=== PATIENT | female | born 1970 | race Caucasian/White ===

== ENCOUNTER 2016-05-14 11:39 | Emergency (ER) | payer OTHER ==
[~2016-05-14 11:39] MED LIST: ABILIFY 10 MG10 MG PO; ABILIFY 15MG15 MG PO; ABILIFY10 M1 PO; ADVAIR DISKUS 21 DSK INH; ALBUTEROL 3 ML3 ML INH; ALBUTEROL SULFAT3 M1 INH; BENADRYL ALLERG25 M1 PO; CARISOPRODOL350 MG PO; CHLORASEPTI1 LOZ/PAC PO; CLONAZEPAM1 M2 PO; CLOZAPINE100 MG PO; CLOZAPINE25 MG PO; CLOZAPINE50 MG PO; CLOZARIL PO; CLOZARIL100 M1 PO; COMMIT PO; CRESTOR10 M1 PO; CYCLOBENZAPRINE5 M1 PO; DEPAKOTE ER 25250 MG PO; DEPAKOTE ER500 M1 PO; DIVALPROEX SOD500 MG PO; ESCITALOPRAM10 MG PO; ESCITALOPRAM5 MG PO; ESTRADIOL TOP; ESTRADIOL0.0375 MG1; FLEXERIL 5MG TAB5 MG PO; FLONASE120 SPRAY/ NASB; FLOVENT HF0.22 MG/Ac INH; FLUTICASON0.05 MG/A2 NAS; HABITROL21 MG/24 H TOP; IBUPROFEN800 M1 PO; IBUPROFEN800 MG PO; IMODIUM 2 MG. CA2 MG PO; KLONOPIN 1MG TAB1 MG PO; KLONOPIN0.5 MG PO; LASIX20 M1 PO; LEVAQUIN500 M1 PO; LEXAPRO 10MG10 MG PO; LEXAPRO 20MG M20 MG PO; MOBIC7.5 MG PO; MOXIFLOXACIN H400 M1 PO; MUCINEX D ER T1 EACH PO; NICOTINE T14 MG/24 H EXT; OLANZAPINE20 MG PO; OXYCOD/APAP TAB 10- PO; OXYCODONE-ACET1 EACH PO; Oxygen INH; PERCOCET 325 MG1 TAB PO; PREDNICOT20 MG PO; PREDNISONE10 MG PO; PREDNISONE20 M1 PO; PROAIR HFA8.5 GM INH; PROTONIX 40MG T40 MG PO; PROTONIX20 M1 PO; VESICARE5 M1 PO; VIBRAMYCIN100 MG PO; VITAMIN B-121000 MC3 PO; ZITHROMAX Z-PA250 M1 PO; ZITHROMAX250 M2 PO; ZITHROMAX500 MG PO; [UNRECOGNIZED DRUG - OTHER] TOP
--- NOTE | 2016-05-14 12:03 | ED DYSPNEA/ASTHMA COMPLAINT ---
History of Present Illness General Chief Complaint: General Adult Stated Complaint: SENT BY AMANDA FOR EVAL OF FEVER,CONGESTION Source: patient, old records Exam Limitations: no limitations Vital Signs & Intake/Output Vital Signs & Intake/Output Vital Signs Date Time Temp Pulse Resp B/P Pulse O2 O2 Flow FiO2 Ox Delivery Rate 05/14 1226 98 Nasal 2.0L Cannula 05/14 1203 95 Nasal 2.0L Cannula 05/14 1146 98.4 110 22 174/95 93 Nasal 2.0L Cannula Allergies Coded Allergies: amoxicillin (From Augmentin) (Intermediate, SICK - VOMITING 02/03/16) clavulanic acid (From Augmentin) (Intermediate, SICK - VOMITING 02/03/16) lithium (Intermediate, SICK - NAUSEA, DIARRHEA, VOMITING 02/03/16) Sulfa (Sulfonamide Antibiotics) (BAD RASH ALL OVER BODY 02/03/16) erythromycin base (R/O ERYTHROMYCIN (PER DR. Thomas KULKARNI MD) 02/03/16) haloperidol (From Haldol) (PER PT GETS OUT OF IT, DOESNT MOVE 02/03/16) morphine (PER PT DIDNT LIKE THE WAY IT MADE HER FEEL 02/03/16) Reconcile Medications Albuterol Sulfate (Proair Hfa) 0.09 MG/Actuation MICHELL 1-2 PUF INH AD PRN COPD (Reported) Albuterol Sulfate 3 ML NEB 1 AMP INH BID PRN SOB (Reported) Aripiprazole (Abilify) 20 MG TABLET 1 TAB PO QAM MENTAL HEALTH (Reported) Aspirin (Ecotrin*) 325 MG TABLET.DR 1 TAB PO DAILY HEART HEALTH (Reported) Azithromycin (Zithromax) 250 MG TABLET 1 DP PO AD bronchitis 2 the first day followed by 1 for days 2-5 Clonazepam 1 MG TABLET 1 TAB PO DAILY PTSD (Reported) Clonazepam 0.5 MG TABLET 1 TAB PO QPM PTSD (Reported) Clozapine (Clozaril) 100 MG TABLET 1 TAB PO QPM MENTAL HEALTH (Reported) Clozapine (Clozaril) 25 MG TABLET 1 TAB PO QPM MENTAL HEALTH (Reported) Cyanocobalamin (Vitamin B-12) 1,000 MCG TAB 1 TAB PO DAILY SUPPLEMENT ( Reported) Divalproex Sodium (Depakote ER) [address] 1,000 MG PO QAM MENTAL HEALTH ( Reported) Divalproex Sodium (Depakote ER) [address] 1,500 MG PO QPM MENTAL HEALTH ( Reported) Escitalopram Oxalate 20 MG TABLET 1 TAB PO DAILY MENTAL HEALTH (Reported) Fluticasone Propionate (Flonase) 120 SPRAY/BOT SPR 2 SPRAY NASB DAILY CONGESTION (Reported) FLUTICASONE/SALMETEROL (Advair 250-50 Diskus) 1 DSK DSK 1 PUFF INH BID COPD ( Reported) Furosemide (Lasix) 20 MG TABLET 1 TAB PO BID EDEMA (Reported) Ibuprofen 800 MG TABLET 1 TAB PO DAILY PAIN (Reported) Methylprednisolone. (Medrol) 4 MG TAB.DS.PK 1 DP PO AD bronchtis 6 on day 1 then reduce by one tablet daily until gone Mometasone Furoate (Nasonex) 50 MCG SPRAY.PUMP 2 SPRAY NASB DAILY rhinitis Oxycodone HCl/Acetaminophen (Oxycodone-Acetaminophen 5-325) 5 MG-325 MG TABLET 1 TAB PO BIDP PRN PAIN (Reported) Pantoprazole Sodium (Protonix) 20 MG TABLET.DR 1 TAB PO BID GI (Reported) Rosuvastatin Calcium (Crestor) 10 MG TABLET 1 TAB PO DAILY HPL (Reported) Solifenacin Succinate (Vesicare) 5 MG TABLET 1 TAB PO DAILY INCONTINENCE ( Reported) Triage Note: PT STATES THAT THAT SHE HAS COPD AND THAT SHE HAS HAD A COUGH INTERMITTANT X 4-5 DAYS, BROWN SPUTUM, HEAD CONGESTION AND FEVERS AT HOME. PT IS O2 DEPENDENT 2L VIA NC AND SATURATION 93 % . CALLED MD AND WAS TOLD TO COME TO ER Triage Nurses Notes Reviewed? yes Onset: Abrupt Duration: day(s): (5), constant Timing: recent history Severity: moderate Prior Episodes/Possible Cause: frequent episodes Associated Symptoms: cough HPI: 46-year-old female with history of cOPD on 2L home oxygen , obstructive sleep apnea on home BiPAP, GERD, irritable bowel syndrome, bipolar disorder, chronic back pain, sciatica, chronic pain disorder, depression, PTSD presents emergency room complaining of a five-day history of intermittent cough productive of brown sputum associated with sinus congestion pressure rhinorrhea and subjective fevers at home. She has not sought care for the symptoms until today. She is not currently on any antibiotics or prednisone. She does not smoke. She has not had to increase her oxygen at home and denies dyspnea with exertion however she states after coughing this morning she checked her oxygen saturation which read in the low 70s for which she called her model set artist Dr. mccoy whos office advised her to come to the ER. There is no chest pain no abdominal pain no nausea vomiting or diarrhea (CORTNEY WALL) Past History Travel History Traveled to [place] past 21 day No Medical History Any Pertinent Medical History? see below for history Neurological: NONE EENT: allergies Cardiovascular: NONE Respiratory: asthma, bronchitis, COPD, obstructive sleep apnea Gastrointestinal: GERD, irritable bowel syndrome Hepatic: NONE Renal: NONE Musculoskeletal: chronic back pain, falls, sciatica Psychiatric: anxiety, bipolar disease, chronic pain disorder, depression, schizo affective disorder, PTSD Endocrine: obesity Blood Disorders: NONE Cancer(s): NONE DISTRICT CAPTAIN/Reproductive: NOCTURNAL INCONTINENCE History of MRSA: No History of VRE: No History of CDIFF: No Surgical History Surgical History: laminectomy Psychosocial History Who do you live with Patient/Self Services at Home Home Health Aide, Nursing What is your primary language Persian Tobacco Use: Quit >30 days ago ETOH Use: denies use Illicit Drug Use: denies illicit drug use Family History Family History, If Any: Relation not specified for: *No pertinent family history Hx Contributory? No (CORTNEY WALL) Review of Systems Review of Systems Constitutional: Reports: see HPI. All Other Systems: Reviewed and Negative Comments Review of systems: See HPI, All other systems negative. Constitutional, no chills no fever, no malaise HEENT: No visual changes sore throat congestion, no ear pain Cardiovascular: No chest pain , no palpitation , no orthopnea no ankle swelling Skin, no jaundice no rashes, no change in skin Respiratory: dyspnea cough no sputum no hemoptysis GI: No nausea no vomiting, no diarrhea, : No dysuria Muscle skeletal: No joint pain, no back pain, no neck pain, Neurologic: No numbness nno headache Psych: No stress Heme/endocrine: No bruising no bleeding Immunology: No lymphadenopathy (CORTNEY WALL) Physical Exam Physical Exam General Appearance: well developed/nourished, alert, awake Respiratory: normal breath sounds Comments: Well-developed well-nourished patient in no apparent distress. Head/Face: Atraumatic, no maxillary/frontal sinus tenderness, no facial swelling Eyes: PERRL, EOMI, no conjunctival injection. No nystagmus Ear:External auditory canal and Tympanic membranes clear, no erythema, no FB. Nose: atraumatic.Normal inspection Throat: Moist mucous membranes.Pharynx normal. No pharyngeal erythema/exudate seen. No stridor/drooling or assymetry. No swelling or edema. Neck: Supple, FROM Back: FROM, Nontender Cardiovascular: Regular rate and rhythms no murmurs rubs or gallops, Respiratory: Chest nontender.There were no bony deformities, no asymmetry. No respiratory distress. Patient speaking in full complete sentences. Breath sounds clear to auscultation bilaterally: NO W/R/R Extremities: full range of motion Neuro: Alert and oriented x3 Skin: Warm & dry;No appreciable rash on exposed skin Psych: Mood affect normal, normal memory normal judgment. Core Measures ACS in differential dx? No Severe Sepsis Present: No Septic Shock Present: No (SHERLYN TEE,CORTNEY) Progress Differential Diagnosis: asthma, AMI, bronchitis, costochondritis, CHF, COPD, pericarditis, pulmonary embolism, pneumonia, pneumothorax, unstable angina Diagnostic Imaging: Viewed by Me: Radiology Read. Discussed w/RAD: Radiology Read. Radiology Impression: PATIENT: SAVANAH FSOTER PRESENT AGE: 46 PATIENT ACCOUNT NO: [id number] : 68 LOCATION: [facility] ORDERING PHYSICIAN: CORTNEY TEE SERVICE DATE: 05/14/16 EXAM TYPE: RAD - XRY- CHEST XRAY, PA AND LATERAL XR CHEST CLINICAL INFORMATION: Dyspnea COMPARISON: Chest x-ray 04/08/2016. TECHNIQUE: PA and lateral views of the chest were obtained. FINDINGS: Symmetric lung inflation. No focal consolidation, pleural effusion, or pneumothorax. Cardiac silhouette size is normal. There are no acute osseous findings. IMPRESSION: Low lung volumes. The lungs remain clear. DICTATED BY: ASUNCION BAIG MD DATE/TIME DICTATED:05/14/161330 INDUSTRIAL SAFETY AND HEALTH TECHNICIAN: TALIA DATE/TIME TRANSCRIBED:05/14/161330 CONFIDENTIAL, DO NOT COPY WITHOUT APPROPRIATE AUTHORIZATION. <Electronically signed in Other Vendor System> SIGNED BY: ASUNCION BAIG MD 05/14/16 1336 Initial ED EKG: none (CORTNEY WALL) Plan of Care: Orders Procedure Date/time Status Saline Lock 05/14 1211 Active COMPREHENSIVE METABOLIC PANEL 05/14 1211 Complete CBC WITHOUT DIFFERENTIAL 05/14 1211 Complete Laboratory Tests 05/14/16 1219: Anion Gap 14, Estimated GFR > 60, BUN/Creatinine Ratio 28.3 H, Glucose 101 H, Calcium 9.6, Total Bilirubin 0.4, AST 21, ALT 36, Alkaline Phosphatase 76, Total Protein 7.3, Albumin 4.3, Globulin 3.0, Albumin/Globulin Ratio 1.4, CBC w Diff NO MAN DIFF REQ, RBC 3.88 L, MCV 93.7, MCH 31.9 H, RDW 12.4, MPV 8.1, Gran % 60.6, Lymphocytes % 25.5, Monocytes % 12.2 H, Eosinophils % 1.5, Basophils % 0.2, Absolute Granulocytes 3.8, Absolute Lymphocytes 1.6, Absolute Monocytes 0.8 H, Absolute Eosinophils 0.1, Absolute Basophils 0, PUBS MCHC 34.0 labs ordered, ptmedicated with solumedrol 125mg iv, duoneb ordered. pt speakig in full sentences at this time On repeat evaluation patient reports improvement in her symptoms and breathing treatment currently 93- 97% on 2 L resting 05/14/2016 1:53:59 PM. Case was discussed with Dr. Waters agrees with plan patient is able to or around ER oxygen saturation 95% and denies any symptoms. . Discussed with her at length all of her lab results and x-ray findings she feels comfortable plan she is scheduled to see her model set artist in 2 days she will return anytime sooner if any concerns answered all of her questions (SHERLYN TEE,CORTNEY) Departure Departure Time of Disposition: 1353 Disposition: HOME OR SELF CARE Condition: Stable Clinical Impression Primary Impression: URI (upper respiratory infection) Referrals: ILIANA MARTINES,CHAUNCEY Roy (PCP/Family) Additional Instructions: Follow-up with your model set artist on Saturday as scheduled. Medrol Dosepak, Nasonex in Z-Fuad as directed return anytime sooner with any concerns. these prescriptions were sent [facility]. Departure Forms: Customer Survey General Discharge Information Prescriptions: Current Visit Scripts Methylprednisolone. (Medrol) 1 DP PO AD #1 DP 6 on day 1 then reduce by one tablet daily until gone Mometasone Furoate (Nasonex) 2 SPRAY NASB DAILY #1 INHAL Azithromycin (Zithromax) 1 DP PO AD #6 TAB 2 the first day followed by 1 for days 2-5 (CORTNEY WALL) PA/HEALTH SAFETY MANAGER Co-Sign Statement Statement: ED Attending supervision documentation- [] I saw and evaluated the patient. I have also reviewed all the pertinent lab results and diagnostic results. I agree with the findings and the plan of care as documented in the PA's/HEALTH SAFETY MANAGER's documentation. [X] I have reviewed the ED Record and agree with the PA's/HEALTH SAFETY MANAGER's documentation. [] Additions or exceptions (if any) to the PAs/HEALTH SAFETY MANAGER's note and plan are summarized below: [] (SEAMUS MARTINES,ASUNCION Fuentes) Critical Care Note Critical Care Note Critical Care Time: non-applicable (CORTNEY WALL)
[2016-05-14 12:47] LABS: ABSOLUTE BASOPHIL COUNT 0 /CUMM (0.0-0.2); ABSOLUTE EOSINOPHIL COUNT 0.1 /CUMM (0.0-0.7); ABSOLUTE GRANULOCYTE CT 3.8 /CUMM (1.4-6.5); ABSOLUTE LYMPH COUNT 1.6 /CUMM (1.2-3.4); ABSOLUTE MONOCYTE COUNT 0.8 /CUMM (0.10-0.60); BASOPHIL % 0.2 % (0.0-2.0); EOSINOPHIL % 1.5 % (0-5); GRANULOCYTE % 60.6 % (42.2-75.2); HEMATOCRIT 36.3 % (37-47); MEAN CORPUSCULAR HGB 31.9 PG (27.0-31.0); MEAN CORPUSCULAR VOLUME 93.7 FL (81.0-99.0); MEAN PLATELET VOLUME 8.1 FL (7.4-10.4); PLATELET COUNT 227 /CUMM (130-400); RBC DISTRIBUTION WIDTH 12.4 % (11.5-14.5); RED BLOOD CELL CT 3.88 /CUMM (4.20-5.40); WHITE BLOOD CELL COUNT 6.3 /CUMM (4.8-10.8)
[2016-05-14] MEDS ORDERED: CLONAZEPAM0.5 M2 PO (12:49)
[2016-05-14] MEDS ORDERED: CLOZARIL25 MG PO (12:51)
[2016-05-14] MEDS ORDERED: ESCITALOPRAM OX20 MG PO (12:52)
[2016-05-14] MEDS ORDERED: ASPIRIN EC325 M2 PO (12:55)
--- NOTE | 2016-05-14 13:36 | RADIOLOGY REPORT ---
XR CHEST CLINICAL INFORMATION: Dyspnea COMPARISON: Chest x-ray 04/08/2016. TECHNIQUE: PA and lateral views of the chest were obtained. FINDINGS: Symmetric lung inflation. No focal consolidation, pleural effusion, or pneumothorax. Cardiac silhouette size is normal. There are no acute osseous findings. IMPRESSION: Low lung volumes. The lungs remain clear.
[2016-05-14] MEDS ORDERED: MEDROL4 M2 PO (13:55)
[2016-05-14] MEDS ORDERED: ZITHROMAX250 M2 PO (13:55)
[2016-05-14] MEDS ORDERED: NASONEX17 GM NASB (13:55)
[2016-05-14 14:01] VITALS: BP 158/84
== END 2016-05-14 14:03 ==
LOC: ERH 11:39
PROVIDERS: Physician Assistant Medical
DX: J06.9 Acute upper respiratory infection, unspecified (principal); Z87.891 Personal history of nicotine dependence
CPT/HCPCS: 1263; 96374; J2930

== ENCOUNTER 2016-07-25 11:18 | Emergency (ER) | payer OTHER ==
[~2016-07-25 11:18] MED LIST changes: +ASPIRIN EC325 M2 PO; +CLONAZEPAM0.5 M2 PO; +CLOZARIL25 MG PO; +ESCITALOPRAM OX20 MG PO; +MEDROL4 M2 PO; +NASONEX17 GM NASB
--- NOTE | 2016-07-25 11:24 | ED GENERAL ADULT ---
History of Present Illness General Chief Complaint: General Adult Stated Complaint: ANXIETY/SOB Source: patient, old records, EMS Exam Limitations: no limitations Vital Signs & Intake/Output Vital Signs & Intake/Output Vital Signs Date Time Temp Pulse Resp B/P Pulse O2 O2 Flow FiO2 Ox Delivery Rate 07/25 1437 94 07/25 1412 97.8 93 18 111/56 97 Room Air 07/25 1253 87 Room Air 07/25 1253 97.9 98 22 95 Nasal 2.0L Cannula 07/25 1138 94 Nasal 2.0L Cannula 07/25 1122 98.4 100 20 144/70 96 Nasal 2.0L Cannula 07/25 1120 24 87 Room Air Allergies Coded Allergies: amoxicillin (From Augmentin) (Intermediate, SICK - VOMITING 02/03/16) clavulanic acid (From Augmentin) (Intermediate, SICK - VOMITING 02/03/16) lithium (Intermediate, SICK - NAUSEA, DIARRHEA, VOMITING 02/03/16) Sulfa (Sulfonamide Antibiotics) (BAD RASH ALL OVER BODY 02/03/16) erythromycin base (R/O ERYTHROMYCIN (PER DR. Thomas KULKARNI MD) 02/03/16) haloperidol (From Haldol) (PER PT GETS OUT OF IT, DOESNT MOVE 02/03/16) morphine (PER PT DIDNT LIKE THE WAY IT MADE HER FEEL 02/03/16) Reconcile Medications Albuterol Sulfate (Proair Hfa) 90 MCG HFA.AER.AD 2 PUF INH Q4-6 PRN PRN COPD (Reported) Aripiprazole (Abilify) 20 MG TABLET 1 TAB PO QAM MENTAL HEALTH (Reported) Benzonatate (Tessalon Perle) 100 MG CAPSULE 1 CAP PO TID PRN cough Clonazepam 1 MG TABLET 1 TAB PO DAILY PTSD (Reported) Clonazepam 0.5 MG TABLET 1 TAB PO QPM PTSD (Reported) Clozapine (Clozaril) 100 MG TABLET 1 TAB PO QPM MENTAL HEALTH (Reported) Clozapine (Clozaril) 25 MG TABLET 1 TAB PO QPM MENTAL HEALTH (Reported) Cyanocobalamin (Vitamin B-12) 1,000 MCG TABLET 1 TAB PO DAILY SUPPLEMENT ( Reported) Divalproex Sodium (Depakote ER) 500 MG TAB.ER.24H 2 TAB PO DAILY MENTAL HEALTH (Reported) Divalproex Sodium (Depakote ER) 500 MG TAB.ER.24H 3 TAB PO QPM MENTAL HEALTH (Reported) Doxycycline Hyclate 100 MG CAPSULE 1 CAP PO BID bronchitis Escitalopram Oxalate 20 MG TABLET 1 TAB PO DAILY MENTAL HEALTH (Reported) Fluticasone/Salmeterol (Advair 250-50 Diskus) 250 MCG-50 MCG/DOSE BLST.W.DEV 1 PUF INH BID BREATHING PROBLEMS (Reported) Furosemide (Lasix) 20 MG TABLET 1 TAB PO BID EDEMA (Reported) Ibuprofen 800 MG TABLET 1 TAB PO DAILY PAIN (Reported) Oxycodone HCl/Acetaminophen (Oxycodone-Acetaminophen 5-325) 5 MG-325 MG TABLET 1 TAB PO BIDP PRN PAIN (Reported) Pantoprazole Sodium (Protonix) 20 MG TABLET.DR 1 TAB PO BID GI (Reported) Prednisone 20 MG TABLET 2 TAB PO DAILY bronchitis Rosuvastatin Calcium (Crestor) 10 MG TABLET 1 TAB PO DAILY HPL (Reported) Solifenacin Succinate (Vesicare) 5 MG TABLET 1 TAB PO DAILY BLADDER HEALTH ( Reported) Triage Nurses Notes Reviewed? yes Onset: Gradual Duration: week(s): (2), worse persistent since Timing: remote history Injury Environment: home Severity: moderate Severity Numbers: 7 Associated Symptoms: cough HPI: Patient is a 46-year-old female with history of COPD, sleep apnea presenting to the emergency department complaining of increasing shortness of breath 1 day. She reports a productive cough of green and brown phlegm that's been going on for the past 2 weeks. Positive chills without fevers. She wears oxygen at nighttime with her CPAP. Denies using it during the day. Denies any chest pain or palpitations. Remote history of smoking quit one year ago and then started up 2 weeks ago. Since then all the symptoms have been occurring. Denies any palpitations. Denies any increasing lower extremity edema. She does take Lasix daily for edema. Denies recent travel. No recent surgeries. (IBETH SNIDER) Past History Travel History Traveled to [place] past 21 day No Medical History Any Pertinent Medical History? see below for history Neurological: NONE EENT: allergies Cardiovascular: NONE Respiratory: asthma, bronchitis, COPD, obstructive sleep apnea Gastrointestinal: GERD, irritable bowel syndrome Hepatic: NONE Renal: NONE Musculoskeletal: chronic back pain, falls, sciatica Psychiatric: anxiety, bipolar disease, chronic pain disorder, depression, schizo affective disorder, PTSD Endocrine: obesity Blood Disorders: NONE Cancer(s): NONE BALL RACKER/Reproductive: NOCTURNAL INCONTINENCE History of MRSA: No History of VRE: No History of CDIFF: No Surgical History Surgical History: laminectomy Psychosocial History Who do you live with Patient/Self Services at Home Home Health Aide, Nursing What is your primary language Turkish Family History Family History, If Any: Relation not specified for: *No pertinent family history Hx Contributory? No (IBETH SNIDER) Review of Systems Review of Systems Constitutional: Reports: chills. Comments Review of systems: See HPI, All other systems negative. Constitutional, no fever or weight loss HEENT: No visual changes Cardiovascular: No chest pain ,palpitation , orthopnea or ankle swelling Skin, no jaundice no rashes Respiratory: No hemoptysis GI: No nausea no vomiting : No dysuria No hematuria Muscle skeletal: no back pain, no neck pain, Neurologic: No numbness no confusion NO RODRÍGUEZ Psych: No stress anxiety or depression,. Heme/endocrine: No bruising no bleeding no polyuria or polydipsia Immunology: No splenectomy or history of AIDS (IBETH SNIDER) Physical Exam Physical Exam General Appearance: alert, awake, mild distress, obese Comments: Well-developed well-nourished person in no acute distress HEENT: Pupils equally round and reactive to light and accommodation. Nose is atraumatic. External auditory canal and Tympanic membranes clear. Pharynx normal. No swelling or edema. Neck: Supple, no lymphadenopathy, normal range of motion without pain or tenderness Back: Nontender Cardiovascular: Regular rate and rhythms no murmurs rubs or gallops, normal JVP Respiratory: Chest nontender. No respiratory distress. Slight end expiratory wheeze appreciated throughout all lung perez. No rhonchi or crackles. Abdomen: Soft, nontender nondistended, no appreciable organomegaly. Normal bowel sounds. No ascites Extremity: No edema, no calf tenderness to palpation, pedal pulses normal and equal pulses. Neuro: Alert oriented x3 Skin: No appreciable rash on exposed skin, skin is warm and dry. Psych: Mood and affect is normal, memory and judgment is normal. Core Measures ACS in differential dx? No CVA/TIA Diagnosis: No Severe Sepsis Present: No Septic Shock Present: No (IBETH SNIDER) Progress Differential Diagnoses I considered the following diagnoses in my evaluation of the patient: Pneumonia , bronchitis, COPD exacerbation, pulmonary embolus, upper respiratory infection, sinusitis Plan of Care: Orders Procedure Date/time Status Heart Healthy Diet 07/25 L Active Add-on Test (ER Only) 07/25 1257 Active TROPONIN LEVEL 07/25 1150 Complete HUMAN BETA HCG SCREEN 07/25 1150 Complete LACTIC ACID 07/25 1141 Complete COMPREHENSIVE METABOLIC PANEL 07/25 1141 Complete CBC WITHOUT DIFFERENTIAL 07/25 1141 Complete Telemetry/Home Economics Teacher 07/25 1125 Active EKG 07/25 1125 Active Laboratory Tests 07/25/16 1441: Lactic Acid Cancelled 07/25/16 1150: Anion Gap 10, Estimated GFR > 60, BUN/Creatinine Ratio 28.8 H, Glucose 117 H, Lactic Acid 0.8, Calcium 10.0, Total Bilirubin 0.4, AST 25, ALT 44, Alkaline Phosphatase 67, Troponin I < 0.01, Total Protein 6.9, Albumin 4.1, Globulin 2.8, Albumin/Globulin Ratio 1.5, Total Beta HCG NEGATIVE, CBC w Diff NO MAN DIFF REQ, RBC 4.16 L, MCV 93.5, MCH 31.4 H, RDW 14.0, MPV 8.0, Gran % 63.5, Lymphocytes % 25.2, Monocytes % 9.9 H, Eosinophils % 1.0, Basophils % 0.4, Absolute Granulocytes 3.9, Absolute Lymphocytes 1.5, Absolute Monocytes 0.6, Absolute Eosinophils 0.1, Absolute Basophils 0, PUBS MCHC 33.6 07/25/16 1144: Troponin I Cancelled Diagnostic Imaging: Viewed by Me: Radiology Read. Discussed w/RAD: Radiology Read. CXR Impression: PATIENT: SAVANAH FOSTER PRESENT AGE: 46 PATIENT ACCOUNT NO: [id number] : 66 LOCATION: [facility] ORDERING PHYSICIAN: IBETH TEE SERVICE DATE: 07/25/16-1124 EXAM TYPE: RAD - XRY-CHEST XRAY, PA AND LATERAL EXAMINATION: XR CHEST CLINICAL INFORMATION: Cough and hypoxia COMPARISON: Multiple chest x-rays most recent prior dated 05/14/2016 TECHNIQUE: 2 views of the chest were obtained. FINDINGS: Stable cardiomediastinal silhouette. Lungs are clear. Bony thorax is intact. IMPRESSION : No acute pulmonary disease. DICTATED BY: MARY MONTESINOS MD DATE/TIME DICTATED: 07/25/161424 DIMENSION QUARRY SUPERVISOR:TALIA DATE/TIME TRANSCRIBED:07/25/161424 CONFIDENTIAL, DO NOT COPY WITHOUT APPROPRIATE AUTHORIZATION. <Electronically signed in Other Vendor System> SIGNED BY: MARY MONTESINOS MD 07/25/16 1430 Initial ED EKG: NSR Prior EKG: unchanged Comments: On arrival patient given DuoNeb treatment and dose of prednisone. Patient nontoxic in no distress. Oxygen saturation is around 94%. There is expiratory wheezing on exam. Patient has history of COPD. X-ray negative for acute pneumonia. Patient will be treated for COPD exacerbation with Z-Fuad, prednisone. She will continue inhalers as directed. Patient also given Tessalon pearls for cough. 07/25/2016 2:41:05 PM patient informed of lab work results and x-ray results. No signs of pneumonia. Likely COPD exacerbation and bronchitis. Patient will be treated with antibiotics. Patient put on doxycycline secondary to potential to T prolongation with azithromycin and another antipsychotic medications. He should also given a couple days of steroids and Tessalon Perles. She will continue inhaler treatment. Patient nontoxic. Ambulatory O2 sat ranges from 91 -93% on room air. Likely baseline for this patient as she has history of COPD and sleep apnea. She has oxygen at home as well. She'll follow-up with her flight coordinator this week. (IBETH SNIDER) Departure Departure Time of Disposition: 9 Disposition: HOME OR SELF CARE Condition: Stable Clinical Impression Primary Impression: COPD exacerbation Secondary Impressions: Bronchitis Referrals: ILIANA MARTINES,CHAUNCEY Roy (PCP/Family) Additional Instructions: Follow-up with your primary care physician call to make an appointment. Take antibiotics as prescribed. Take off medication as prescribed. Continue using inhalers as directed at home. Take steroids as prescribed as well. Start tomorrow you were given a dose of steroids here today. Departure Forms: Customer Survey General Discharge Information Prescriptions: Current Visit Scripts Doxycycline Hyclate 1 CAP PO BID #14 CAP Benzonatate (Tessalon Perle) 1 CAP PO TID PRN cough #30 CAP Prednisone 2 TAB PO DAILY #8 TAB (IBEHT SNIDER) PA/PROP CUTTER Co-Sign Statement Statement: ED Attending supervision documentation- [] I saw and evaluated the patient. I have also reviewed all the pertinent lab results and diagnostic results. I agree with the findings and the plan of care as documented in the PA's/PROP CUTTER's documentation. x I have reviewed the ED Record and agree with the PA's/PROP CUTTER's documentation. [] Additions or exceptions (if any) to the PAs/PROP CUTTER's note and plan are summarized below: [] (CHANELLE MARTINES,YAIR) Critical Care Note Critical Care Note Critical Care Time: non-applicable (ALICIA TEE,IBETH)
[2016-07-25 11:59] LABS: ABSOLUTE BASOPHIL COUNT 0 /CUMM (0.0-0.2); ABSOLUTE EOSINOPHIL COUNT 0.1 /CUMM (0.0-0.7); ABSOLUTE GRANULOCYTE CT 3.9 /CUMM (1.4-6.5); ABSOLUTE LYMPH COUNT 1.5 /CUMM (1.2-3.4); ABSOLUTE MONOCYTE COUNT 0.6 /CUMM (0.10-0.60); BASOPHIL % 0.4 % (0.0-2.0); GRANULOCYTE % 63.5 % (42.2-75.2); HEMATOCRIT 38.9 % (37-47); MEAN CORPUSCULAR HGB 31.4 PG (27.0-31.0); MEAN CORPUSCULAR HGB CONC 33.6 G/DL (33.0-37.0); MEAN CORPUSCULAR VOLUME 93.5 FL (81.0-99.0); PLATELET COUNT 215 /CUMM (130-400); RED BLOOD CELL CT 4.16 /CUMM (4.20-5.40); WHITE BLOOD CELL COUNT 6.2 /CUMM (4.8-10.8)
[2016-07-25 14:12] VITALS: BP 111/56
[2016-07-25] MEDS ORDERED: ADVAIR 250-501 EACH INH (14:19)
[2016-07-25] MEDS ORDERED: DOXYCYCLINE HY100 M2 PO (14:27)
[2016-07-25] MEDS ORDERED: PREDNISONE20 M1 PO (14:27)
[2016-07-25] MEDS ORDERED: TESSALON PERLE100 M1 PO (14:27)
--- NOTE | 2016-07-25 14:30 | RADIOLOGY REPORT ---
EXAMINATION: XR CHEST CLINICAL INFORMATION: Cough and hypoxia COMPARISON: Multiple chest x-rays most recent prior dated 05/14/2016 TECHNIQUE: 2 views of the chest were obtained. FINDINGS: Stable cardiomediastinal silhouette. Lungs are clear. Bony thorax is intact. IMPRESSION: No acute pulmonary disease.
== END 2016-07-25 15:08 ==
LOC: ERH 11:18
PROVIDERS: Physician Assistant
DX: J44.1 Chronic obstructive pulmonary disease with (acute) exacerbation (principal); R68.83 Chills (without fever); Z87.891 Personal history of nicotine dependence
CPT/HCPCS: 1263; 93005; 93010

== ENCOUNTER 2016-09-02 21:04 | Inpatient (IN) | payer OTHER ==
[~2016-09-02] VITALS: Ht 162.6 cm; Wt 127.0 kg
[~2016-09-02 21:04] MED LIST changes: +ADVAIR 250-501 EACH INH; +DOXYCYCLINE HY100 M2 PO; +TESSALON PERLE100 M1 PO
--- NOTE | 2016-09-02 21:06 | ED DYSPNEA/ASTHMA COMPLAINT ---
History of Present Illness General Chief Complaint: Dyspnea (COPD, CHF, Other) Stated Complaint: BIBA, SOB Source: patient Exam Limitations: no limitations Vital Signs & Intake/Output Vital Signs & Intake/Output Vital Signs Date Time Temp Pulse Resp B/P B/P Pulse O2 O2 Flow FiO2 Mean Ox Delivery Rate 09/03 0123 94 Nasal 2.0L Cannula 09/03 0115 98.1 87 20 154/94 94 09/03 0044 97.6 82 18 141/64 95 Nasal 3.0L Cannula 09/02 2305 97.6 87 22 148/72 93 Room Air 09/02 2143 99 Nasal 2.0L Cannula 09/02 2105 97.9 106 21 157/77 94 Room Air ED Intake and Output 09/03 0000 09/02 1200 Intake Total 0 Output Total Balance 0 Intake, Oral 0 Patient 220 lb Weight Weight Estimated Measurement Method Allergies Coded Allergies: amoxicillin (From Augmentin) (Intermediate, SICK - VOMITING 02/03/16) clavulanic acid (From Augmentin) (Intermediate, SICK - VOMITING 02/03/16) lithium (Intermediate, SICK - NAUSEA, DIARRHEA, VOMITING 02/03/16) Sulfa (Sulfonamide Antibiotics) (BAD RASH ALL OVER BODY 02/03/16) erythromycin base (R/O ERYTHROMYCIN (PER DR. Thomas KULKARNI MD) 02/03/16) haloperidol (From Haldol) (PER PT GETS OUT OF IT, DOESNT MOVE 02/03/16) morphine (PER PT DIDNT LIKE THE WAY IT MADE HER FEEL 02/03/16) Reconcile Medications Albuterol Sulfate (Proair Hfa) 90 MCG HFA.AER.AD 2 PUF INH Q4-6 PRN PRN COPD (Reported) Aripiprazole (Abilify) 20 MG TABLET 1 TAB PO QAM MENTAL HEALTH (Reported) Benzonatate (Tessalon Perle) 100 MG CAPSULE 1 CAP PO TID PRN cough Clonazepam 1 MG TABLET 1 TAB PO DAILY PTSD (Reported) Clonazepam 0.5 MG TABLET 1 TAB PO QPM PTSD (Reported) Clozapine (Clozaril) 100 MG TABLET 1 TAB PO QPM MENTAL HEALTH (Reported) Clozapine (Clozaril) 25 MG TABLET 1 TAB PO QPM MENTAL HEALTH (Reported) Cyanocobalamin (Vitamin B-12) 1,000 MCG TABLET 1 TAB PO DAILY SUPPLEMENT ( Reported) Divalproex Sodium (Depakote ER) 500 MG TAB.ER.24H 2 TAB PO DAILY MENTAL HEALTH (Reported) Divalproex Sodium (Depakote ER) 500 MG TAB.ER.24H 3 TAB PO QPM MENTAL HEALTH (Reported) Doxycycline Hyclate 100 MG CAPSULE 1 CAP PO BID bronchitis Escitalopram Oxalate 20 MG TABLET 1 TAB PO DAILY MENTAL HEALTH (Reported) Escitalopram Oxalate (Lexapro) 5 MG TABLET 1 TAB PO DAILY ANXIETY (Reported) Fluticasone/Salmeterol (Advair 250-50 Diskus) 250 MCG-50 MCG/DOSE BLST.W.DEV 1 PUF INH BID BREATHING PROBLEMS (Reported) Furosemide (Lasix) 20 MG TABLET 1 TAB PO BID EDEMA (Reported) Ibuprofen 800 MG TABLET 1 TAB PO DAILY PAIN (Reported) Oxycodone HCl/Acetaminophen (Oxycodone-Acetaminophen 5-325) 5 MG-325 MG TABLET 1 TAB PO BIDP PRN PAIN (Reported) Pantoprazole Sodium (Protonix) 20 MG TABLET.DR 1 TAB PO BID GI (Reported) Prednisone 20 MG TABLET 2 TAB PO DAILY bronchitis Rosuvastatin Calcium (Crestor) 10 MG TABLET 1 TAB PO DAILY HPL (Reported) Solifenacin Succinate (Vesicare) 5 MG TABLET 1 TAB PO DAILY BLADDER HEALTH ( Reported) Triage Nurses Notes Reviewed? yes Onset: Gradual Duration: day(s): Timing: recent history Severity: moderate Activities at Onset: none Prior Episodes/Possible Cause: occasional episodes Modifying Factors: Improves With: rest. Associated Symptoms: cough, wheezing HPI: 46 yo woman h/o emphysema, presents with 2-3 days of cough, wheezing, increased shortness of breath. She recently was given home 02 to take intermittently, and noted that she required increased amounts today, because her 02 sat had dropped to 84%. She denies fever, chills, chest pain, nausea, vomiting, diarrhea. She is otherwise well. Past History Travel History Traveled to [place] past 21 day No Medical History Any Pertinent Medical History? 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 No Review of Systems Review of Systems Constitutional: Reports: no symptoms. EENTM: Reports: no symptoms. Respiratory: Reports: no symptoms. Cardiovascular: Reports: no symptoms. GI: Reports: no symptoms. Genitourinary: Reports: no symptoms. Musculoskeletal: Reports: no symptoms. Skin: Reports: no symptoms. Neurological/Psychological: Reports: no symptoms. Hematologic/Endocrine: Reports: no symptoms. Immunologic/Allergic: Reports: no symptoms. All Other Systems: Reviewed and Negative Physical Exam Physical Exam General Appearance: well developed/nourished, mild distress Head: atraumatic, normal appearance Eyes: Bilateral: normal appearance. Ears, Nose, Throat: normal pharynx, normal ENT inspection Neck: normal inspection, supple, full range of motion Respiratory: chest non-tender, wheezing Cardiovascular: regular rate/rhythm Gastrointestinal: normal bowel sounds, soft, non-tender, no organomegaly Extremities: normal inspection, normal capillary refill, normal range of motion Neurologic/Psych: no motor/sensory deficits, awake, alert, oriented x 3 Skin: intact, normal color, warm/dry Core Measures ACS in differential dx? No Severe Sepsis Present: No Septic Shock Present: No Progress Differential Diagnosis: asthma, AMI, bronchitis, CHF, COPD, pneumonia Plan of Care: Orders Procedure Date/time Status Regular Diet 09/03 B Active CBC WITHOUT DIFFERENTIAL 09/03 06 Active BASIC ELECTROLYTES PLUS BUN&CR 09/03 06 Active TRC EVALUATION (GEN) 09/03 0242 Active Pathway - chart 09/03 0242 Active House Staff 09/03 0242 Active Vital Signs 09/04 103 Active Teach/Educate 09/04 103 Active Pain Treatment and Response 09/04 103 Active Nutritional Intake, Monitor 09/04 103 Active Isolation 09/04 103 Active Intake & Output 09/04 103 Active Patient Care Conference 09/04 103 Active Activity/Ambulation 09/04 103 Active Patient Data 09/02 2334 Active Saline Lock 09/02 2325 Active Misc Message 09/02 2324 Active ED Holding Orders 09/02 2324 Active Admit to inpatient 09/02 2324 Active Vital Signs 09/02 2324 Active Code Status 09/02 2324 Active HUMAN BETA HCG SCREEN 09/03 2123 Complete Intake & Output 09/02 2113 Active TROPONIN LEVEL 09/02 2110 Complete CBC WITHOUT DIFFERENTIAL 09/02 2110 Complete BASIC METABOLIC PANEL 09/02 2110 Complete EKG 09/02 2108 Active Current Medications Sig/Sandeep Start time Last Medication Dose Stop Time Status Admin Clonazepam 0.5 MG QPM 09/03 2199 UNVr (KlonoPIN) 09/10 2158 Clozapine 100 MG QPM 09/03 2199 UNVr (Clozaril 100MG Tab) Clozapine 25 MG QPM 09/03 2199 UNVr (Clozaril 100MG Tab) Divalproex Sodium 1,500 MG QPM 09/03 220 UNVr (Depakote ER) Atorvastatin Calcium 40 MG 1700 09/03 1700 UNVr (Lipitor) Aripiprazole 20 MG DAILY 09/03 1000 UNVr (Abilify) Budesonide/ 2 PUF BID 09/03 1000 UNVr Formoterol Fumarate (Symbicort) Clonazepam 1 MG DAILY 09/03 1000 UNVr (Klonopin 1MG Tab) 09/10 0959 Cyanocobalamin 1,000 MCG DAILY 09/03 1000 UNVr (Vitamin B12) Divalproex Sodium 1,000 MG DAILY 09/03 1000 UNVr (Depakote ER) Doxycycline Hyclate 100 MG BID 09/03 1000 AC (Vibramycin) Enoxaparin Sodium 40 MG DAILY 09/03 1000 UNVr (Lovenox) Escitalopram Oxalate 20 MG DAILY 09/03 1000 UNVr (Lexapro) Escitalopram Oxalate 5 MG DAILY 09/03 1000 UNVr (Lexapro) Furosemide 20 MG BID 09/03 1000 UNVr (Lasix) Oxybutynin Chloride 5 MG BID 09/03 1000 UNVr (Ditropan) Prednisone 50 MG DAILY 09/03 1000 AC 09/07 1001 Omeprazole 40 MG DAILY AC 09/03 0700 UNVr (Prilosec) Benzonatate 100 MG TID PRN 09/03 0300 AC (Tessalon Capsule) Oxycodone/ 1 TAB Q4P PRN 09/03 0300 UNVr Acetaminophen (Percocet) Acetaminophen 650 MG Q6P PRN 09/03 0245 AC (Tylenol) Ibuprofen 400 MG Q6P PRN 09/03 0245 AC (Motrin) Laboratory Tests 09/02/162129: Total Beta HCG NEGATIVE 09/02/162129: Anion Gap 12, Estimated GFR 59 L, BUN/Creatinine Ratio 21.0, Glucose 111 H, Calcium 9.3, Troponin I < 0.01, CBC w Diff NO MAN DIFF REQ, RBC 4.15 L, MCV 94.3, MCH 31.5 H, RDW 14.3, MPV 8.2, Gran % 56.7, Lymphocytes % 32.9, Monocytes % 7.9, Eosinophils % 1.4, Basophils % 1.1, Absolute Granulocytes 4.9, Absolute Lymphocytes 2.9, Absolute Monocytes 0.7 H, Absolute Eosinophils 0.1, Absolute Basophils 0.1, PUBS MCHC 33.5 Diagnostic Imaging: Viewed by Me: Radiology Read. Discussed w/RAD: Radiology Read. CXR Impression: no acute abnormality, no infiltrates, normal size heart, normal mediastinum Initial ED EKG: normal axis, normal intervals, normal p-waves, normal QRS complex, normal sinus rhythm Comments: PATIENT: SAVANAH FOSTER PRESENT AGE: 46 PATIENT ACCOUNT NO: [id number] : 66 LOCATION: [facility] ORDERING PHYSICIAN: HALLIE PRITCHARD MD SERVICE DATE: 09/02/16 EXAM TYPE: RAD - XRY-PORTABLE CHEST XRAY EXAMINATION: XR PORTABLE CHEST CLINICAL INFORMATION: Dyspnea. COMPARISON: Chest x-ray 07/25/2016 TECHNIQUE: Portable portable frontal view of the chest was obtained. 10:26 PM FINDINGS: No significant abnormality is noted involving the heart, lungs, mediastinum, bony thorax or soft tissues. IMPRESSION: Unremarkable examination. 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 <Electronically signed in Other Vendor System> SIGNED BY: VENKATESH RAYMOND MD 09/02/162240 Departure Departure Disposition: STILL A PATIENT Condition: Stable Clinical Impression Primary Impression: COPD exacerbation Referrals: ILIANA MARTINES,CHAUNCEY Roy (PCP/Family) Departure Forms: Customer Survey General Discharge Information Admission Note Spoke With: SHANNAN HONG MD Documentation of Exam: Documentation of any treatments & extenuating circumstances including Concerns Regarding Discharge (functional status, medication knowledge or non-compliance, living conditions, etc.) that warrant an admission rather than observation: pt with recurrent hypoxia to 88% on room air, at home and in the ED... corrects to 94% on 2-3 l nasal cannula... pt merits 02 support, iv abx, iv steroids, consider pulm consult. Critical Care Note Critical Care Note Critical Care Time: non-applicable
--- NOTE | 2016-09-02 21:13 | NUR ---
PT TYRESE FROM HOME. PER PT, SHE STARTED EXPERIENCING SOB A WEEK AGO AND WAS GIVEN PORTABLE O2 BY HER PCP WITH INSTRUCTIONS TO WEAR THE O2 EVERYWHERE SHE GOES. PT STATES SHE WAS WALKING AROUND HER APARTMENT TODAY WITHOUT THE O2 AND BECAME SOB. PT KARRI O2 SAT WAS 84% AT HOME. UPON ED ARRIVAL PT O2 SAT 94% ON RA. WHEEZING NOTED. DR PRITCHARD IN TO EVAL PT.
--- NOTE | 2016-09-02 21:18 | NUR ---
RESP CALLED FOR TREATMENT.
--- NOTE | 2016-09-02 21:20 | NUR ---
PORTABLE XRAY AT BEDSIDE.
[2016-09-02 21:37] LABS: ABSOLUTE BASOPHIL COUNT 0.1 /CUMM (0.0-0.2); ABSOLUTE EOSINOPHIL COUNT 0.1 /CUMM (0.0-0.7); ABSOLUTE GRANULOCYTE CT 4.9 /CUMM (1.4-6.5); ABSOLUTE LYMPH COUNT 2.9 /CUMM (1.2-3.4); ABSOLUTE MONOCYTE COUNT 0.7 /CUMM (0.10-0.60); BASOPHIL % 1.1 % (0.0-2.0); EOSINOPHIL % 1.4 % (0-5); GRANULOCYTE % 56.7 % (42.2-75.2); HEMATOCRIT 39.2 % (37-47); MEAN CORPUSCULAR HGB 31.5 PG (27.0-31.0); MEAN CORPUSCULAR HGB CONC 33.5 G/DL (33.0-37.0); MEAN CORPUSCULAR VOLUME 94.3 FL (81.0-99.0); MEAN PLATELET VOLUME 8.2 FL (7.4-10.4); PLATELET COUNT 230 /CUMM (130-400); RBC DISTRIBUTION WIDTH 14.3 % (11.5-14.5); RED BLOOD CELL CT 4.15 /CUMM (4.20-5.40); WHITE BLOOD CELL COUNT 8.7 /CUMM (4.8-10.8)
--- NOTE | 2016-09-02 21:38 | NUR ---
PT MEDICATED WITH 125MG SOLU MEDROL IV. RESP AT BEDSIDE FOR TREATMENT.
--- NOTE | 2016-09-02 22:08 | NUR ---
PT ON 2L NC WITH O2 SAT 94%.
--- NOTE | 2016-09-02 22:41 | RADIOLOGY REPORT ---
EXAMINATION: XR PORTABLE CHEST CLINICAL INFORMATION: Dyspnea. COMPARISON: Chest x-ray 07/25/2016 TECHNIQUE: Portable portable frontal view of the chest was obtained. 10:26 PM FINDINGS: No significant abnormality is noted involving the heart, lungs, mediastinum, bony thorax or soft tissues. IMPRESSION: Unremarkable examination.
--- NOTE | 2016-09-02 23:12 | NUR ---
PT RESTING COMFORTABLY ON STRETCHER. PT ON 3L O2 NC AT 96%.
--- NOTE | 2016-09-02 23:13 | NUR ---
DR PRITCHARD IN TO REEVAL PT.
[2016-09-02] MEDS ORDERED: LEXAPRO20 M1 PO (23:37)
--- NOTE | 2016-09-03 00:15 | NUR ---
Emergency Dept UC Admit Note: To be admitted to [facility] by DR. HONG with COPD EXACERBATION as the diagnosis, to 2NB #[id number] location. 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
--- NOTE | 2016-09-03 00:16 | NUR ---
HOUSESTAFF AT BEDSIDE FOR EVAL.
--- NOTE | 2016-09-03 00:39 | NUR ---
REPORT GIVEN TO MARBIN MACDONALD ON [facility]. RECEIVING RN CHECKING TO SEE IF THERE IS AN AVAILABLE TECH TO HELP WITH TRANSPORT.
[2016-09-03 01:15] VITALS: BP 154/94
--- NOTE | 2016-09-03 01:30 | NUR ---
NURSING NOTE: PT ARRIVED TO FLOOR VIA STRETCHER FROM ED. PT A&OX3, VSS, AFEBRILE, DENIES CP. PT ON 2L NC SATS 94%, PT STATES SHE GETS EXERTIONAL SOB ON AMBULATION, IST @ BEDSIDE AND PT SHOWN HOW TO USE, PT STATES SHE IS ON 2L CPAP W/02 @ HOME. SKIN INTACT, NO BREAKDOWN NOTED. AWAIT FURTHER ORDERS FROM MD, PT SHOWN HOW TO USE CALL LIGHT SYSTEM, WILL CONTINUE TO MONITOR.
--- NOTE | 2016-09-03 01:46 | History & Physical ---
ALEXUS CHENG 09/03/16 0145: General Information and HPI MD Statement: I have seen and personally examined SAVANAH FOSTER and documented this H&P. The patient is a 46 year old F who presented with a patient stated chief complaint of worsening shortness of breath and low oxygen saturation. Source of Information: patient, old records Exam Limitations: no limitations History of Present Illness: This is a 46-year-old female with past medical history significant for COPD on 2 L oxygen at home, asthma, allergies, history of bronchitis, obstructive sleep apnea on CPAP, hyperlipidemia, GERD, bilateral lower extremity edema on Lasix, chronic back pain, laminectomy, sciatica, history of falls, anxiety, bipolar disorder, depression, shizoffective disorder, PTSD, chronic pain syndrome, obesity, nocturnal urinary incontinence, chronic smoker presented to emergency department with chief complaint of worsening shortness of breath at rest and low oxygen saturations 84% on room air. Patient reports that she has seen Dr. Palomares last week and underwent ambulatory oxygen saturations which were low and she was restarted on home oxygen 2 L. Previously she used to be on home oxygen for couple of years but she stopped using oxygen 1 month ago. However she was started on oxygen again one week ago. She reports worsening shortness of breath both at rest and on exertion for couple of days. Also reported cough associated with brown colored phlegm production. She denied any fever, chills. Shortness of breath is associated with chest tightness. Also reported heartburn. Denies any chest pain. She denied any sick contacts, travel history. She is a current smoker 1 pack per day, denies alcohol intake, denies illicit drug abuse. Off note patient tried quitting in the past however she started smoking again. Patient reports visiting her friend this morning and all of a sudden she felt dizzy(not on oxygen as she forgot to carry portable oxygen tank). At that point of time her oxygen saturations were at 84% on room air which provoked her to come to the emergency room. She denies any loss of consciousness. Patient also reported long-standing history of irritable bowel syndrome and she has alternating constipation and diarrhea. Also reported 5 x 10 headache. Denied any nausea, vomiting, abdominal pain, weakness or sensory changes, tingling or numbness sensation, vision or gait changes. Also reports hot flashes from menopause. After patient was discharged from [facility] in June 2015 after she was treated for altered mental status and acute on chronic respiratory failure, aspiration pneumonia. She was recently seen in our ER and treated with short course of steroids and doxycycline Allergies/Medications Allergies: Coded Allergies: amoxicillin (From Augmentin) (Intermediate, SICK - VOMITING 02/03/16) clavulanic acid (From Augmentin) (Intermediate, SICK - VOMITING 02/03/16) lithium (Intermediate, SICK - NAUSEA, DIARRHEA, VOMITING 02/03/16) Sulfa (Sulfonamide Antibiotics) (BAD RASH ALL OVER BODY 02/03/16) erythromycin base (R/O ERYTHROMYCIN (PER DR. Thomas KULKARNI MD) 02/03/16) haloperidol (From Haldol) (PER PT GETS OUT OF IT, DOESNT MOVE 02/03/16) morphine (PER PT DIDNT LIKE THE WAY IT MADE HER FEEL 02/03/16) Home Med list Albuterol Sulfate (Proair Hfa) 90 MCG HFA.AER.AD 2 PUF INH Q4-6 PRN PRN COPD (Reported) Aripiprazole (Abilify) 20 MG TABLET 1 TAB PO QAM MENTAL HEALTH (Reported) Benzonatate (Tessalon Perle) 100 MG CAPSULE 1 CAP PO TID PRN cough Clonazepam 1 MG TABLET 1 TAB PO DAILY PTSD (Reported) Clonazepam 0.5 MG TABLET 1 TAB PO QPM PTSD (Reported) Clozapine (Clozaril) 100 MG TABLET 1 TAB PO QPM MENTAL HEALTH (Reported) Clozapine (Clozaril) 25 MG TABLET 1 TAB PO QPM MENTAL HEALTH (Reported) Cyanocobalamin (Vitamin B-12) 1,000 MCG TABLET 1 TAB PO DAILY SUPPLEMENT ( Reported) Divalproex Sodium (Depakote ER) 500 MG TAB.ER.24H 2 TAB PO DAILY MENTAL HEALTH (Reported) Divalproex Sodium (Depakote ER) 500 MG TAB.ER.24H 3 TAB PO QPM MENTAL HEALTH (Reported) Doxycycline Hyclate 100 MG CAPSULE 1 CAP PO BID bronchitis Escitalopram Oxalate 20 MG TABLET 1 TAB PO DAILY MENTAL HEALTH (Reported) Escitalopram Oxalate (Lexapro) 5 MG TABLET 1 TAB PO DAILY ANXIETY (Reported) Fluticasone/Salmeterol (Advair 250-50 Diskus) 250 MCG-50 MCG/DOSE BLST.W.DEV 1 PUF INH BID BREATHING PROBLEMS (Reported) Furosemide (Lasix) 20 MG TABLET 1 TAB PO BID EDEMA (Reported) Ibuprofen 800 MG TABLET 1 TAB PO DAILY PAIN (Reported) Oxycodone HCl/Acetaminophen (Oxycodone-Acetaminophen 5-325) 5 MG-325 MG TABLET 1 TAB PO BIDP PRN PAIN (Reported) Pantoprazole Sodium (Protonix) 20 MG TABLET.DR 1 TAB PO BID GI (Reported) Prednisone 20 MG TABLET 2 TAB PO DAILY bronchitis Rosuvastatin Calcium (Crestor) 10 MG TABLET 1 TAB PO DAILY HPL (Reported) Solifenacin Succinate (Vesicare) 5 MG TABLET 1 TAB PO DAILY BLADDER HEALTH ( Reported) Compliance With Home Meds: GOOD Past History Travel History Traveled to [place] past 21 day No Medical History Blood Transfusion Hx: No Neurological: NONE EENT: allergies Cardiovascular: NONE Respiratory: asthma, bronchitis, COPD, obstructive sleep apnea Gastrointestinal: GERD, irritable bowel syndrome Hepatic: NONE Renal: NONE Musculoskeletal: chronic back pain, falls, sciatica Psychiatric: anxiety, bipolar disease, chronic pain disorder, depression, schizo affective disorder, PTSD Endocrine: obesity Blood Disorders: NONE Cancer(s): NONE UNIVERSITY RELATIONS DIRECTOR/Reproductive: NOCTURNAL INCONTINENCE History of MRSA: No History of VRE: No History of CDIFF: No Isolation History: Standard Influenza Vaccine: 05/06/16 Surgical History Surgical History: laminectomy Past Family/Social History Family History Relations & Conditions if any Relation not specified for: *No pertinent family history Psychosocial History Services at Home: Home Health Aide, Nursing Primary Language: Greek Smoking Status: Current Everyday Smoker ETOH Use: denies use Illicit Drug Use: denies illicit drug use Functional Ability ADLs Independent: dressing, eating, toileting, bathing. Ambulation: cane IADLs Independent: shopping, housework, finances, food prep, telephone, transportation , medication admin. Review of Systems Review of Systems Constitutional: Denies: chills, diaphoresis, fever, malaise, weakness, unexplained weight loss. EENTM: Denies: see HPI. Cardiovascular: Reports: peripheral edema. Denies: chest pain, edema, orthopena, palpitations, syncope. Respiratory: Reports: cough, short of breath, sputum production. Denies: hemoptysis, orthopnea, stridor, wheezing. GI: Reports: constipation, diarrhea, distention. Denies: bloating, melena, nausea, vomiting. Genitourinary: Denies: discharge, dysuria, frequency. Musculoskeletal: Reports: back pain. Denies: joint pain, joint swelling. Skin: Denies: see HPI. Neurological/Psychological: Reports: anxiety, depressed, emotional problems, headache. Denies: confusion, dementia, numbness, tingling, tremors. Exam & Diagnostic Data Last 24 Hrs of Vital Signs/I&O Vital Signs Date Time Temp Pulse Resp B/P B/P Pulse O2 O2 Flow FiO2 Mean Ox Delivery Rate 09/03 0325 95 Nasal 2.0L Cannula 09/03 0123 94 Nasal 2.0L Cannula 09/03 0115 98.1 87 20 154/94 94 09/03 0044 97.6 82 18 141/64 95 Nasal 3.0L Cannula 09/02 2305 97.6 87 22 148/72 93 Room Air 09/02 2143 99 Nasal 2.0L Cannula 09/02 2106 97.9 106 21 157/77 94 Room Air Intake & Output 09/03 0800 09/03 0000 09/02 1600 Intake Total 0 Output Total Balance 0 Intake, Oral 0 Patient 127.006 kg 99.79 kg Weight Weight Reported by Patient Estimated Measurement Method Physical Exam General Appearance Alert, Oriented X3, Cooperative, No Acute Distress Skin No Rashes, No Breakdown HEENT Atraumatic, PERRLA, EOMI, Mucous Membr. moist/pink Neck Supple, No JVD Lymphatic Cervical nl Cardiovascular Normal S1, Normal S2, No Murmurs Lungs decreased breath sounds, wheezes Abdomen Normal Bowel Sounds, Soft, No Tenderness Neurological Strength at 5/5 X4 Ext, Normal Tone, Sensation Intact, Cranial Nerves 3-12 NL Extremities No Clubbing, No Cyanosis, +2 pitting edema b/l Vascular Normal Pulses, Pulses Symmetrical Last 24 Hrs of Labs/Gianluca: Laboratory Tests 09/02/162129: Total Beta HCG NEGATIVE 09/02/162129: Anion Gap 12, Estimated GFR 59 L, BUN/Creatinine Ratio 21.0, Glucose 111 H, Calcium 9.3, Troponin I < 0.01, CBC w Diff NO MAN DIFF REQ, RBC 4.15 L, MCV 94.3, MCH 31.5 H, RDW 14.3, MPV 8.2, Gran % 56.7, Lymphocytes % 32.9, Monocytes % 7.9, Eosinophils % 1.4, Basophils % 1.1, Absolute Granulocytes 4.9, Absolute Lymphocytes 2.9, Absolute Monocytes 0.7 H, Absolute Eosinophils 0.1, Absolute Basophils 0.1, PUBS MCHC 33.5 Assessment/Plan Assessment: This is a 46-year-old female with past medical history significant for COPD on 2 L oxygen at home, asthma, allergies, history of bronchitis, obstructive sleep apnea on CPAP, hyperlipidemia, GERD, bilateral lower extremity edema on Lasix, chronic back pain, laminectomy, sciatica, history of falls, anxiety, bipolar disorder, depression, shizoffective disorder, PTSD, chronic pain syndrome, obesity, nocturnal urinary incontinence, chronic smoker presented to emergency department with chief complaint of worsening shortness of breath at rest and low oxygen saturations 84% on room air. Vitals on admission-afebrile, heart rate 106, respiratory rate 21, blood pressure 150/70, saturating at 94% on 2 L. Pertinent labs on admission- WBC normal, hemoglobin 13, platelets 230, BEP normal Chest x-ray was normal. Problem list 1. Acute exacerbation of COPD 2. Chronic respiratory failure 3. Hyperlipidemia 4. GERD 5. Bilateral lower extremity edema 6. Obstructive sleep apnea on CPAP 7. Anxiety 8. Depression 9. Bipolar 10. Shizoaffective disorder 11. Nocturnal incontinence Acute exacerbation of COPD/chronic resp failure Significant history of COPD, current every day smoker, cough, worsening shortness of breath, sputum production most possibly COPD exacerbation. Her clinical manifestations-cough, sputum production, worsening dyspnea on exertion, decreased breath sounds, wheezes-suggestive of acute exacerbation of COPD. chest x-ray was clear with no acute pulmonary process, no pneumonia. * We'll admit to general med floor * Check her vitals every shift * Supplemental oxygen * Keep oxygen saturation above 92% * Will start prednisone 50 mg for 5 days * TRC and nebulizer treatment * Bronchodilators and beta agonists * We will start her on antibiotic doxycycline 100 mg twice a day for 7 days. Of note patient is allergic to erythromycin. * Smoking cessation counseled * Will call Dr. palomares in the morning for pulmonology consult. * Will follow blood culture and sputum cultures * Will check ambulatory oxygen saturations Obstructive sleep apnea She is on CPAP at home Will continue nocturnal CPAP for DEEPAK Hyperlipidemia Continue statins GERD Continue home dose of pantoprazole 20 mg daily Bilateral lower extremity edema continue home dose of Lasix 20 mg twice a day Anxiety Continue home dose of clonazepam Depression Continue home dose of Lexapro Continue Abilify We will place psychiatric consult for depression and anxiety However patient denies any suicidal or homicidal ideations Bipolar disorder Continue home dose of Depakote Shizoeffective disorder Continue home dose of clozapine Chronic pain/HEADACHE Tylenol for mild pain oxycodone for moderate pain Morphine for severe pain full code DVT prophylaxis subcutaneous Lovenox Regular diet Pain pathway As Ranked By This Provider Problem List: 1. Depression 2. Smoker 3. COPD (chronic obstructive pulmonary disease) 4. DEEPAK treated with BiPAP 5. COPD exacerbation Core Measures/Miscellaneous Acute Coronary Syndrome ACS Diagnosis: No Cerebrovascular Accident CVA/TIA Diagnosis: No Congestive Heart Failure CHF Diagnosis: No Venous Thromboembolism VTE Risk Factors: Age > 40, Obesity No [facility] VTE prophylaxis d/t: No contraindications No VTE Pharm Prophylaxis d/t: No contraindications VTE Diagnosis: No VTE Type: NONE VTE Confirmed by (Test): NONE Severe Sepsis Severe Sepsis Present: No Septic Shock Septic Shock Present: No Miscellaneous Documentation Attending Case Discussed With: SHANNAN HONG MD Primary Care Physician: CHAUNCEY BARRIENTOS MD Patient sees these Specialists patrol deputy sheriff Level of Patient Care: General Medicine SHANNAN HONG 09/03/16 0314: Attending MD Review Statement Attending Statement Attending MD Statement: examined this patient, discuss w/resident/PA/SUPERVISOR [employer]SEM[employer] RO[employer], agreed w/resident/PA/SUPER[employer] RO[employer], reviewed EMR data (avail), reviewed images, amended to note Attending Assessment/Plan: CC: Low oxygen saturation at home PMH: COPD/asthma, DEEPAK on CPAP, seasonal allergy, chronic back pain, bipolar/ anxiety, IBS Patient called EMS to come to ER because her oxygen saturation was 84% at home without oxygen. "I thought I was going to , I was in hospital before for being unresponsive". She complains of worsening cough shortness of breath with one episode of sputum production since last few days, associated with dizzy spells, and fatigue but no fever, chills, chest pain, chest tightness, loss of consciousness. She is also going through menopausal symptoms and getting hot flashes. Because of this illness patient went to see her patrol deputy sheriff Dr. Palomares, and underwent ambulatory O2 sats, which were low and she was restarted on home oxygen. She used to be on home oxygen before for more than one and half years but recently stopped using it. Even after his suggestion patient was not using oxygen at home. She was recently in ER on 07/25 and treated with short course of steroids and doxycycline. Vitals: Afebrile, pulse, RRR, blood pressure unremarkable. Saturating 94% on 2 L nasal cannula. On exam: A O 3, cooperative, no acute distress, neck supple, JVD normal, no lymphadenopathy, mucosa moist, no oral thrush no focal neurological deficit, +2 dependent edema, no obvious skin rashes or inflammation CVS: S1-S2, RRR. RS: Mild wheezes throughout the lung perez. Abdomen: Soft, obese, NT, ND, bowel sounds present. Labs: WBC 8.7, hemoglobin 13.1, hematocrit 39.2, platelet 2:30, neutrophils 56%, bicarbonate 31, BUN 21, creatinine 1.0, glucose 110, troponin less than 0.01 CXR: Unremarkable A and P Patient has chronic obstructive and restrictive disease secondary to COPD and obesity, along with obstructive sleep apnea, was suggested to use home oxygen at 2 L but patient has been noncompliant. along with that I suspect anxiety or panic episodes after looking at her low oxygen saturation. Patient clinically stable. Tearful and anxious. # Chronic respiratory failure secondary to COPD # COPD exacerbation # Anxiety /depression/bipolar disorder # Chronic back pain # DEEPAK - Admit to general medicine - Continue TRC nebs with albuterol and ipratropium scheduled and when necessary for shortness of breath - Short dose of prednisone 50 mg for 5 days -Doxycycline 100 mg by mouth twice a day for 7 days - Ambulatory O2 sats, probably patient will require home O2 - Night time CPAP - Psychiatry consult for anxiety, ? Panic attack - Informed Dr. Palomares patient being in hospital patient known to him. - Continue all her home medications - Adequate pain control, DVT prophylaxis
--- NOTE | 2016-09-03 03:15 | Admission Certification ---
Admission Certification Certification Statement - As attending physician, I certify that at the time of - admission, based on clinical presentation, severity of - symptoms, need for further diagnostic testing and - therapeutic interventions, and risk of adverse outcomes - without in-hospital treatment, in my clinical assessment, - this patient requires an acute hospital stay for a minimum - of two nights or longer. I have also considered psychsocial - factors such as support system, advanced age, financial - issues, cognitive issues, and failed out-patient treatments, - past re-admission history, safety of patient, and lack of - compliance as applicable. Specific rationale supporting this admission is: COPD exacerbation, chronic respiratory failure
[2016-09-03 06:47] VITALS: BP 147/74
[2016-09-03 08:22] LABS: ABSOLUTE BASOPHIL COUNT 0 /CUMM (0.0-0.2); ABSOLUTE EOSINOPHIL COUNT 0 /CUMM (0.0-0.7); ABSOLUTE GRANULOCYTE CT 7.4 /CUMM (1.4-6.5); ABSOLUTE LYMPH COUNT 1.3 /CUMM (1.2-3.4); ABSOLUTE MONOCYTE COUNT 0.1 /CUMM (0.10-0.60); BASOPHIL % 0.2 % (0.0-2.0); EOSINOPHIL % 0.1 % (0-5); HEMATOCRIT 40.2 % (37-47); MEAN CORPUSCULAR HGB 31.5 PG (27.0-31.0); MEAN CORPUSCULAR HGB CONC 33.4 G/DL (33.0-37.0); MEAN CORPUSCULAR VOLUME 94.2 FL (81.0-99.0); MEAN PLATELET VOLUME 9.3 FL (7.4-10.4); PLATELET COUNT 233 /CUMM (130-400); RBC DISTRIBUTION WIDTH 14.2 % (11.5-14.5); RED BLOOD CELL CT 4.27 /CUMM (4.20-5.40); WHITE BLOOD CELL COUNT 8.7 /CUMM (4.8-10.8)
--- NOTE | 2016-09-03 09:38 | Cons- Pulmonary ---
General Information and HPI Consulting Request Date of Consult: 09/03/16 Requested By: Dr. Guerrero Reason for Consult: dyspnea, chf, deepak/ohs Source of Information: patient Exam Limitations: no limitations History of Present Illness: 46F known to me from office, seen last week. On O2 - can be as low as 70's without oxygen. Exertion as needed and nocturnal. On CPAP therapy for DEEPAK Compliance - August 2016 Usage Days - 100% >4 hours - 100% AHI - 1.2 PAP - CPAP 14 cmH20 Good compliance and control. No signficant leaks. Spirometry performed 08/28/2016 On Lasix. Follows with Dr. Trinidad. Advair 250/50 BID with rinsing of the mouth. Nebulizer therapy at home. 04/14/15 CT chest. Stable GGO in LONA from 10/2013. Stable probable scarring or chronic subsegmental atelectasis in the RML and lingula from 10/2013. The remainder of the areas of increased attenuation and consolidation seen on 12/2013 have resolved. PFT performed February 2015 mild obstructive lung disease with significant bronchodilator response. DLCO is normal. Lung volumes are slightly reduced. This is consistent with a mixed defect restrictive and obstructive. Has not used o2 on exertion as recommended and continues to smoke. Afebrile, hemodynamically stable, saturating as well as in the office. Appears to be at baseline. CXR unremarkable, afebrile, no leukocytosis. Allergies/Medications Allergies: Coded Allergies: amoxicillin (From Augmentin) (Intermediate, SICK - VOMITING 02/03/16) clavulanic acid (From Augmentin) (Intermediate, SICK - VOMITING 02/03/16) lithium (Intermediate, SICK - NAUSEA, DIARRHEA, VOMITING 02/03/16) Sulfa (Sulfonamide Antibiotics) (BAD RASH ALL OVER BODY 02/03/16) erythromycin base (R/O ERYTHROMYCIN (PER DR. Thomas KULKARNI MD) 02/03/16) haloperidol (From Haldol) (PER PT GETS OUT OF IT, DOESNT MOVE 02/03/16) morphine (PER PT DIDNT LIKE THE WAY IT MADE HER FEEL 02/03/16) Home Med List: Albuterol Sulfate (Proair Hfa) 90 MCG HFA.AER.AD 2 PUF INH Q4-6 PRN PRN COPD (Reported) Aripiprazole (Abilify) 20 MG TABLET 1 TAB PO QAM MENTAL HEALTH (Reported) Benzonatate (Tessalon Perle) 100 MG CAPSULE 1 CAP PO TID PRN cough Clonazepam 1 MG TABLET 1 TAB PO DAILY PTSD (Reported) Clonazepam 0.5 MG TABLET 1 TAB PO QPM PTSD (Reported) Clozapine (Clozaril) 100 MG TABLET 1 TAB PO QPM MENTAL HEALTH (Reported) Clozapine (Clozaril) 25 MG TABLET 1 TAB PO QPM MENTAL HEALTH (Reported) Cyanocobalamin (Vitamin B-12) 1,000 MCG TABLET 1 TAB PO DAILY SUPPLEMENT ( Reported) Divalproex Sodium (Depakote ER) 500 MG TAB.ER.24H 2 TAB PO DAILY MENTAL HEALTH (Reported) Divalproex Sodium (Depakote ER) 500 MG TAB.ER.24H 3 TAB PO QPM MENTAL HEALTH (Reported) Doxycycline Hyclate 100 MG CAPSULE 1 CAP PO BID bronchitis Escitalopram Oxalate 20 MG TABLET 1 TAB PO DAILY MENTAL HEALTH (Reported) Escitalopram Oxalate (Lexapro) 5 MG TABLET 1 TAB PO DAILY ANXIETY (Reported) Fluticasone/Salmeterol (Advair 250-50 Diskus) 250 MCG-50 MCG/DOSE BLST.W.DEV 1 PUF INH BID BREATHING PROBLEMS (Reported) Furosemide (Lasix) 20 MG TABLET 1 TAB PO BID EDEMA (Reported) Ibuprofen 800 MG TABLET 1 TAB PO DAILY PAIN (Reported) Oxycodone HCl/Acetaminophen (Oxycodone-Acetaminophen 5-325) 5 MG-325 MG TABLET 1 TAB PO BIDP PRN PAIN (Reported) Pantoprazole Sodium (Protonix) 20 MG TABLET.DR 1 TAB PO BID GI (Reported) Prednisone 20 MG TABLET 2 TAB PO DAILY bronchitis Rosuvastatin Calcium (Crestor) 10 MG TABLET 1 TAB PO DAILY HPL (Reported) Solifenacin Succinate (Vesicare) 5 MG TABLET 1 TAB PO DAILY BLADDER HEALTH ( Reported) Current Medications: Current Medications Sig/Sandeep Start time Last Medication Dose Route Stop Time Status Admin Acetaminophen 650 MG Q6P PRN 09/03 0245 AC PO Albuterol Sulfate 3 ML EVERY 4 HRS/AWAKE 09/03 1200 AC 09/03 INH 0848 Albuterol Sulfate 3 ML ONCE ONE 09/02 2114 DC 09/02 INH 09/02 Aripiprazole 20 MG DAILY 09/03 1000 AC PO Atorvastatin Calcium 40 MG 1700 09/03 1700 AC PO Benzonatate 100 MG TID PRN 09/03 0300 AC PO Budesonide/ 2 PUF BID 09/03 1000 AC Formoterol Fumarate INH Clonazepam 0.5 MG QPM 09/03 2200 AC PO 09/10 2159 Clonazepam 1 MG DAILY 09/03 1000 AC PO 09/10 0959 Clozapine 100 MG QPM 09/03 2200 AC PO Clozapine 25 MG QPM 09/03 2200 AC PO Cyanocobalamin 1,000 MCG DAILY 09/03 1000 AC PO Divalproex Sodium 1,500 MG QPM 09/03 2200 AC PO Divalproex Sodium 1,000 MG DAILY 09/03 1000 AC PO Doxycycline Hyclate 100 MG BID 09/03 1000 AC PO Enoxaparin Sodium 40 MG DAILY 09/03 1000 AC SC Escitalopram Oxalate 20 MG DAILY 09/03 1000 AC PO Escitalopram Oxalate 5 MG DAILY 09/03 1000 AC PO Furosemide 20 MG BID 09/03 1000 AC PO Ibuprofen 400 MG Q6P PRN 09/03 0245 AC 09/03 PO 0257 Ipratropium [place] 2.5 ML EVERY 4 HRS/AWAKE 09/03 1200 AC 09/03 INH 0848 Ipratropium [place] 2.5 ML ONCE ONE 09/02 2114 DC 09/02 INH 09/02 Loratadine 10 MG DAILY 09/03 1000 AC PO Methylprednisolone 0 .STK-MED ONE 09/02 2138 DC .ROUTE Methylprednisolone 125 MG ONCE ONE 09/02 2114 DC 09/02 IV 09/02 Morphine Sulfate 2 MG Q4P PRN 09/03 0245 DC IV Nicotine 21 MG DAILY 09/03 0500 AC TOP Omeprazole 40 MG DAILY AC 09/03 0700 AC 09/03 PO 0642 Oxybutynin Chloride 5 MG BID 09/03 1000 AC PO Oxycodone/ 1 TAB Q4P PRN 09/03 0300 AC 09/03 Acetaminophen PO 0445 Prednisone 50 MG DAILY 09/03 1000 AC PO 09/07 1001 Review of Systems Comments 18 pt ros reviewed pertinent positives and negatives in HPI, otherwise negative Past History Travel History Traveled to [place] past 21 day No Medical History Blood Transfusion Hx: No Neurological: NONE EENT: allergies Cardiovascular: NONE Respiratory: asthma, bronchitis, COPD, obstructive sleep apnea Gastrointestinal: GERD, irritable bowel syndrome Hepatic: NONE Renal: NONE Musculoskeletal: chronic back pain, falls, sciatica Psychiatric: anxiety, bipolar disease, chronic pain disorder, depression, schizo affective disorder, PTSD Endocrine: obesity Blood Disorders: NONE Cancer(s): NONE TRADING ANALYST/Reproductive: NOCTURNAL INCONTINENCE Surgical History Surgical History: laminectomy Family History Relations & Conditions If Any: Relation not specified for: *No pertinent family history Psychosocial History Services at Home: Home Health Aide, Nursing Primary Language: [place] Smoking Status: Current Everyday Smoker ETOH Use: denies use Illicit Drug Use: denies illicit drug use Functional Ability ADLs Independent: dressing, eating, toileting, bathing. Ambulation: cane IADLs Independent: shopping, housework, finances, food prep, telephone, transportation , medication admin. Exam & Diagnostic Data Last 24 Hrs of Vital Signs/I&O Vital Signs Date Time Temp Pulse Resp B/P B/P Pulse O2 O2 Flow FiO2 Mean Ox Delivery Rate 09/03 0800 95 Nasal 2.0L Cannula 09/03 0647 98.3 93 20 147/74 94 09/03 0433 87 97 09/03 0325 95 Nasal 2.0L Cannula 09/03 0123 94 Nasal 2.0L Cannula 09/03 0115 98.1 87 20 154/94 94 09/03 0044 97.6 82 18 141/64 95 Nasal 3.0L Cannula 09/02 2305 97.6 87 22 148/72 93 Room Air 09/02 2143 99 Nasal 2.0L Cannula 09/02 2106 97.9 106 21 157/77 94 Room Air Intake & Output 09/03 1600 09/03 0800 09/03 0000 Intake Total 240 0 Output Total 300 Balance -60 0 Intake, Oral 240 0 Output, Urine 300 Patient 280 lb 220 lb Weight Weight Reported by Patient Estimated Measurement Method Physical Exam Other Physical Findings: gen awake and alert heent ncat cvs s1, s2 lungs diminished breath sounds, prolonged phase abd obese ext trace edema Last 48 Hrs of Labs/Gianluca: Laboratory Tests 09/03/16 0613: Anion Gap 18 H, Estimated GFR > 60, BUN/Creatinine Ratio 30.0 H, CBC w Diff Pending, WBC Pending, RBC Pending, Hgb Pending, Hct Pending, MCV Pending, MCH Pending, RDW Pending, Plt Count Pending, MPV Pending, Gran % Pending, Lymphocytes % Pending, Monocytes % Pending, Eosinophils % Pending, Basophils % Pending, Absolute Granulocytes Pending, Absolute Lymphocytes Pending, Absolute Monocytes Pending, Absolute Eosinophils Pending, Absolute Basophils Pending, PUBS MCHC Pending 09/02/162129: Total Beta HCG NEGATIVE 09/02/162129: Anion Gap 12, Estimated GFR 59 L, BUN/Creatinine Ratio 21.0, Glucose 111 H, Calcium 9.3, Troponin I < 0.01, CBC w Diff NO MAN DIFF REQ, RBC 4.15 L, MCV 94.3, MCH 31.5 H, RDW 14.3, MPV 8.2, Gran % 56.7, Lymphocytes % 32.9, Monocytes % 7.9, Eosinophils % 1.4, Basophils % 1.1, Absolute Granulocytes 4.9, Absolute Lymphocytes 2.9, Absolute Monocytes 0.7 H, Absolute Eosinophils 0.1, Absolute Basophils 0.1, PUBS MCHC 33.5 Assessment/Plan Impression/Plan: Impression 46 year old woman * Chronic hypoxemia - COPD - mild exacerbation is possible from not using her o2 as recommended - CHRONIC hypoxemic respiratory failure * DEEPAK Plan - quick prednisone taper - would do 40mg x 3 days, 30x3, 20x3, 10x3 then stop - cont lasix - cont nocturnal cpap - d/c symbicort - patient takes Advair - cont home meds - do not see need for antibiotics from respiratory perspective - pt denies any significant anxiety - has o2, needs to use it at night and with exertion - okay for dc within 24 hrs DVT prophylaxis at all times Consult Acknowledgment - Thank you for your consult request.
[2016-09-03 10:12] LABS: GRANULOCYTE % 84.4 % (42.2-75.2)
[2016-09-03 13:31] VITALS: BP 126/78
--- NOTE | 2016-09-03 13:43 | PN- Att Addend ---
Attending Addendum Attending Brief Note Patient seen and examined. Ambulating freely around the unit with an oxygen cylinder. She reports feeling better. Did not appear to be in any respiratory distress. She denied any pain during my evaluation. She reports that her pain was improved with her pain regimen. She was anxious about her oxygen level desaturating to 90% on ambulation while on oxygen. Vital Signs Date Time Temp Pulse Resp B/P B/P Pulse O2 O2 Flow FiO2 Mean Ox Delivery Rate 09/03 1117 Nasal 2.0L Cannula 09/03 0800 95 Nasal 2.0L Cannula 09/03 0647 98.3 93 20 147/74 94 09/03 0433 87 97 09/03 0325 95 Nasal 2.0L Cannula 09/03 0123 94 Nasal 2.0L Cannula 09/03 0115 98.1 87 20 154/94 94 09/03 0044 97.6 82 18 141/64 95 Nasal 3.0L Cannula 09/02 2305 97.6 87 22 148/72 93 Room Air 09/02 2143 99 Nasal 2.0L Cannula 09/02 2106 97.9 106 21 157/77 94 Room Air Gen. appearance: Not in acute distress. Heart: S1-S2 regular Lungs: Fair entry bilaterally with no added sounds Abdomen: Obese, soft, nontender with normal bowel sounds Extremities: Trace pedal edema. Skin: Intact. No rashes Laboratory Tests 09/03/16 0613: Anion Gap 18 H, Estimated GFR > 60, BUN/Creatinine Ratio 30.0 H, CBC w Diff NO MAN DIFF REQ, RBC 4.27, MCV 94.2, MCH 31.5 H, RDW 14.2, MPV 9.3, Gran % 84.4 H , Lymphocytes % 14.6 L, Monocytes % 0.7 L, Eosinophils % 0.1, Basophils % 0.2, Absolute Granulocytes 7.4 H, Absolute Lymphocytes 1.3, Absolute Monocytes 0.1 L, Absolute Eosinophils 0, Absolute Basophils 0, PUBS MCHC 33.4 09/02/160: Total Beta HCG NEGATIVE 09/02/162129: Anion Gap 12, Estimated GFR 59 L, BUN/Creatinine Ratio 21.0, Glucose 111 H, Calcium 9.3, Troponin I < 0.01, CBC w Diff NO MAN DIFF REQ, RBC 4.15 L, MCV 94.3, MCH 31.5 H, RDW 14.3, MPV 8.2, Gran % 56.7, Lymphocytes % 32.9, Monocytes % 7.9, Eosinophils % 1.4, Basophils % 1.1, Absolute Granulocytes 4.9, Absolute Lymphocytes 2.9, Absolute Monocytes 0.7 H, Absolute Eosinophils 0.1, Absolute Basophils 0.1, PUBS MCHC 33.5 Problems: 1. COPD exacerbation 2. Chronic respiratory failure 3. Anxiety disorder. Plan: -Pulmonary consultation appreciated. Continue bronchodilator therapy. Continue oxygen supplementation. Taper off prednisone as recommended. -Patient is very agitated. This is likely contributing to her symptoms. Would recommend psychiatric evaluation prior to discharge another to ensure adequate control of anxiety. Prednisone therapy may also contribute to her increased agitation at present. -Anticipate discharge in the next 24-48 hours if she continues to remain clinically stable.
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
[2016-09-03] MEDS ORDERED: PREDNISONE10 M2 PO (20:34)
--- NOTE | 2016-09-03 20:36 | Patient Discharge Instructions ---
Discharge Instructions General Discharge Information Special Instructions: Follow up with Dr. Palomares and your primary care provider after discharge. Take prednisone as directed. Acute Coronary Syndrome Inclusion Criteria At DC or during hospital stay patient has or had the following: ACS DIAGNOSIS No Discharge Core Measures Meds if any: Prescribed or Continued at Discharge Meds if any: NOT Prescribed or Continued at Discharge Congestive Heart Failure Inclusion Criteria At DC or during hospital stay patient has or had the following: CHF DIAGNOSIS No Discharge Core Measures Meds if any: Prescribed or Continued at Discharge Meds if any: NOT Prescribed or Continued at Discharge Cerebrovascular accident Inclusion Criteria At DC or during hospital stay patient has or had the following: CVA/TIA Diagnosis No Discharge Core Measures Meds if any: Prescribed or Continued at Discharge Meds if any: NOT Prescribed or Continued at Discharge Venous thromboembolism Inclusion Criteria VTE Diagnosis No VTE Type NONE VTE Confirmed by (Test) NONE Discharge Core Measures - Per Current guidelines, there needs to be overlap - treatment for the first 5 days of Warfarin therapy. - If discharged on Warfarin prior to 5 days of - overlap therapy, the patient will need to be - assessed for post discharge needs including - *Post discharge parental anticoagulation - *Warfarin and/or parental anticoagulation education - *Follow up date to check INR post discharge At least 5 days overlap therapy as Inpatient No Meds if any: Prescribed or Continued at Discharge Note: Overlap Therapy is Warfarin and Anticoagulant Meds if any: NOT Prescribed or Continued at Discharge
[2016-09-03 22:41] VITALS: BP 107/65
--- NOTE | 2016-09-04 07:07 | PN- Housestaff ---
CHANTAL MARTINES,TYLER 09/04/16 0706: Subjective Follow-up For: COPD exacerbation Subjective: Patient seen and examined. She is seen sitting upright in a chair in a common area maintained on supplemental oxygen via nasal cannula/portable o2 tank. She appears to be in no acute distress. She states that she did not sleep well last night and that her breathing is mildly improved today. She states that normall she utilizing supplemental oxygen as needed but is afraid use it intermittently and wants to use it all the time. Otherwise she denies any headache, fever, chills, chest pain, worsening shortness of breath, nausea, vomiting, diarrhea. No overnight events reported. Review of Systems Constitutional: Reports: see HPI. Objective Last 24 Hrs of Vital Signs/I&O Vital Signs Date Time Temp Pulse Resp B/P B/P Pulse O2 O2 Flow FiO2 Mean Ox Delivery Rate 09/04 0800 93 Nasal 2.0L Cannula 09/04 0747 93 Nasal 2.0L Cannula 09/04 0346 92 Nasal 2.0L Cannula 09/04 0328 71 92 09/04 0109 80 92 09/03 2241 97.9 79 20 107/65 93 Nasal Cannula 09/03 2210 3 09/03 1649 98 Nasal 2.0L Cannula 09/03 1600 Nasal 2.0L Cannula 09/03 1331 98.0 90 20 126/78 94 Nasal 2.0L Cannula 09/03 1117 Nasal 2.0L Cannula Intake & Output 09/04 1600 09/04 0800 09/04 0000 Intake Total 120 1000 Output Total 900 650 Balance -780 350 Intake, Oral 120 1000 Output, Urine 900 650 Physical Exam General Appearance: Alert, Oriented X3, Cooperative, No Acute Distress Other Physical Findings: General- well developed, well nourished morbidly obese middled aged woman in no acute distress HEENT- NCAT, PERRL, EOMI, anciteric sclera, moist mucous membranes, nasal cannula in place CVS- S1, S2 w/o m/g/r Resp- CTA bilaterally w/o m/g/r GI- Soft, nontender, nondistended, bowel sounds intact Neuro- Awake and alert, mildly anxious, CN II - XII intact Ext- normal pulses, no cyanosis/clubbing/edema Current Medications: Current Medications Sig/Sandeep Start time Last Medication Dose Route Stop Time Status Admin Acetaminophen 650 MG Q6P PRN 09/03 0245 AC PO Albuterol Sulfate 3 ML EVERY 4 HRS/AWAKE 09/03 1200 AC 09/04 INH 0745 Aripiprazole 10 MG DAILY 09/04 1000 AC PO Aripiprazole 20 MG DAILY 09/03 1000 DC 09/04 PO 0823 Atorvastatin Calcium 40 MG 1700 05 1700 AC 09/03 PO 1641 Benzonatate 100 MG TID PRN 09/03 0300 AC PO Budesonide/ 2 PUF BID 09/03 1000 DC 09/03 Formoterol Fumarate INH 0939 Clonazepam 0.5 MG QPM 09/03 2200 AC 09/03 PO 09/10 2159 2106 Clonazepam 1 MG DAILY 09/03 1000 AC 09/04 PO 09/10 0959 0822 Clozapine 100 MG QPM 09/03 2200 AC 09/03 PO 2106 Clozapine 25 MG QPM 09/03 2200 AC 09/03 PO 2106 Cyanocobalamin 1,000 MCG DAILY 09/03 1000 AC 09/04 PO 0824 Divalproex Sodium 1,500 MG QPM 09/03 2200 AC 09/03 PO 2105 Divalproex Sodium 1,000 MG DAILY 09/03 1000 AC 09/04 PO 0823 Doxycycline Hyclate 100 MG BID 09/03 1000 DC 09/04 PO 0822 Enoxaparin Sodium 40 MG DAILY 09/03 1000 AC 09/03 SC 0938 Escitalopram Oxalate 20 MG DAILY 09/03 1000 AC 09/04 PO 0823 Escitalopram Oxalate 5 MG DAILY 09/03 1000 DC 09/04 PO 0823 Furosemide 20 MG BID 09/03 1000 AC 09/04 PO 0838 Ibuprofen 400 MG Q6P PRN 09/03 0245 AC 09/03 PO 2112 Ipratropium [place] 2.5 ML EVERY 4 HRS/AWAKE 09/03 1200 AC 09/04 INH 0745 Loratadine 10 MG DAILY 09/03 1000 AC 09/04 PO 0823 Nicotine 2 MG Q2 HRS NEEDED PRN 09/03 1530 AC 09/03 PO 1829 Nicotine 21 MG DAILY 09/03 0500 AC 09/04 TOP 0821 Omeprazole 40 MG DAILY AC 09/03 0700 AC 09/04 PO 0657 Oxybutynin Chloride 5 MG BID 09/03 1000 AC 09/04 PO 0822 Oxycodone/ 1 TAB Q4P PRN 09/03 0300 AC 09/04 Acetaminophen PO 0822 Patient Medication 1 ED .STK-MED ONE 09/03 1417 DC Teaching ED 09/03 1418 Prednisone 40 MG DAILY 09/04 1000 AC 09/04 PO 0823 Prednisone 50 MG DAILY 09/03 1000 DC 09/03 PO 09/07 1001 0938 Assessment/Plan Assessment: Patient continues to do well on while on oral steroids. She has improved much faster than anticipated and will be discharged to home today with an oral prednisone taper given her dramatic improvement. She is to follow up with her PCP and ropewalk rope maker after discharge for further evaluation. COPD Exacerbation -General Medicine -Supplemental oxygen, goal >92%, taper as tolerated -TRC with albuterol/ipratropium PRN -Prednisone taper -Advair -Tessalon Caps 100mg PO TID PRN cough -Pulmonology consult -Follow up cultures & sensitivities Anxiety / Depression / Bipolar Disorder -Aripiprazole 10mg PO Daily -Clonazepam 0.5mg PO QHS -Clonazepam 1mg PO Daily -Clozapine 125mg PO QPM -Depakote 1g PO Daily -Depakote 1.5g PO QPM -Lexapro 20mg PO Daily -Psych consult Obstructive Sleep Apnea-Nocturnal CPAP GERD-Omeprazole 40mg PO Daily B12 Deficiency-Cyanocobalamin 1mg PO Dailg Chronic Lower Extremity Swelling-Lasix 20mg PO BID Seasonal Allergies-Loratadine 10mg PO Daily Current everyday smoker-Nicotine patch/gum Pain Plain-Acetaminophen/Ibuprofen/Percocet Diet-Regular diet DVT PPX-Lovenox Code Status-FULL CODE Problem List: 1. COPD with acute exacerbation Pain Ratin Pain Location: None Pain Goal: Remain pain free Pain Plan: See assessment Tomorrow's Labs & Rationales: None DONNA MARTINES,RANDY 09/04/16 1148: Attending MD Review Statement Attending Statement Attending MD Statement: examined this patient, discuss w/resident/PA/FLIGHT ENGINEER INSPECTOR, agreed w/resident/PA/FLIGHT ENGINEER INSPECTOR, reviewed EMR data (avail), discussed with nursing, discussed with case mgmt, amended to note Attending Assessment/Plan: Patient seen and examined. Resting comfortably and not in any acute distress. She reports feeling better today. She however continues to require oxygen supplementation. Follow-up by the pulmonary service appreciated. She is medically stable to be discharged home today. She will continue bronchodilator therapy and a quick prednisone taper. She will also continue on continuous oxygen supplementation upon discharge. Patient will follow-up with he ropewalk rope maker Quan Palomares MD as an outpatient to assess need for continuous oxygen supplementation at that time following. Patient is in agreement with this plan. She was seen by the psychiatric services yesterday due to concerns for her increased anxiety. Recommendations are for patient to follow-up with her behavior janitor caretaker as an outpatient. Patient is in agreement with this plan.
--- NOTE | 2016-09-04 09:30 | PN- Pulmonary ---
Subjective HPI/Critical Care Issues: pt seen and examined afebrile 93% on 2LNC no n/v/d/c Objective Current Medications: Current Medications Sig/Sandeep Start time Last Medication Dose Route Stop Time Status Admin Acetaminophen 650 MG Q6P PRN 09/03 0245 AC PO Albuterol Sulfate 3 ML EVERY 4 HRS/AWAKE 09/03 1200 AC 09/04 INH 0745 Aripiprazole 10 MG DAILY 09/04 1000 AC PO Aripiprazole 20 MG DAILY 09/03 1000 DC 09/04 PO 0823 Atorvastatin Calcium 40 MG 1700 05 1700 AC 05 PO 1641 Benzonatate 100 MG TID PRN 09/03 0300 AC PO Budesonide/ 2 PUF BID 09/03 1000 DC 09/03 Formoterol Fumarate INH 0939 Clonazepam 0.5 MG QPM 09/03 2200 AC 09/03 PO 08 2159 2106 Clonazepam 1 MG DAILY 09/03 1000 AC 09/04 PO 08 0959 0822 Clozapine 100 MG QPM 09/03 2200 AC 09/03 PO 2106 Clozapine 25 MG QPM 09/03 2200 AC 09/03 PO 2106 Cyanocobalamin 1,000 MCG DAILY 09/03 1000 AC 09/04 PO 0824 Divalproex Sodium 1,500 MG QPM 09/03 2200 AC 09/03 PO 2105 Divalproex Sodium 1,000 MG DAILY 09/03 1000 AC 09/04 PO 0823 Doxycycline Hyclate 100 MG BID 09/03 1000 DC 09/04 PO 0822 Enoxaparin Sodium 40 MG DAILY 09/03 1000 AC 09/03 SC 0938 Escitalopram Oxalate 20 MG DAILY 09/03 1000 AC 09/04 PO 0823 Escitalopram Oxalate 5 MG DAILY 09/03 1000 DC 09/04 PO 0823 Furosemide 20 MG BID 09/03 1000 AC 09/04 PO 0838 Ibuprofen 400 MG Q6P PRN 09/03 0245 AC 09/03 PO 2112 Ipratropium [place] 2.5 ML EVERY 4 HRS/AWAKE 09/03 1200 AC 09/04 INH 0745 Loratadine 10 MG DAILY 09/03 1000 AC 09/04 PO 0823 Nicotine 2 MG Q2 HRS NEEDED PRN 09/03 1530 AC 09/03 PO 1829 Nicotine 21 MG DAILY 09/03 0500 AC 09/04 TOP 0821 Omeprazole 40 MG DAILY AC 09/03 0700 AC 09/04 PO 0657 Oxybutynin Chloride 5 MG BID 09/03 1000 AC 09/04 PO 0822 Oxycodone/ 1 TAB Q4P PRN 09/03 0300 AC 09/04 Acetaminophen PO 0822 Patient Medication 1 ED .STK-MED ONE 09/03 1417 DC Teaching ED 09/03 1418 Prednisone 40 MG DAILY 09/04 1000 AC 09/04 PO 0823 Prednisone 50 MG DAILY 09/03 1000 DC 09/03 PO 09/07 1001 0938 Vital Signs & I&O Last 24 Hrs of Vitals and I&O: Vital Signs Date Time Temp Pulse Resp B/P B/P Pulse O2 O2 Flow FiO2 Mean Ox Delivery Rate 09/04 0747 93 Nasal 2.0L Cannula 09/04 0346 92 Nasal 2.0L Cannula 09/04 0328 71 92 09/04 0109 80 92 09/03 2241 97.9 79 20 107/65 93 Nasal Cannula 09/03 2210 3 09/03 1649 98 Nasal 2.0L Cannula 09/03 1600 Nasal 2.0L Cannula 09/03 1331 98.0 90 20 126/78 94 Nasal 2.0L Cannula 09/03 1117 Nasal 2.0L Cannula Intake & Output 09/04 1600 09/04 0800 09/04 0000 Intake Total 120 1000 Output Total 900 650 Balance -780 350 Intake, Oral 120 1000 Output, Urine 900 650 Exam Other Physical Findings: gen awake and alert heent ncat cvs s1, s2 lungs diminished breath sounds, prolonged phase abd obese ext trace edema Impression/Plan Impression/Plan Impression/Plan: Impression 46 year old woman * Chronic hypoxemia - COPD - mild exacerbation is possible from not using her o2 as recommended - CHRONIC hypoxemic respiratory failure * DEEPAK Plan - quick prednisone taper as ordered - 40mg x 3 days, 30x3, 20x3, 10x3 then stop - cont lasix - cont nocturnal cpap - resume outpatient - patient takes Advair - cont home meds - do not see need for antibiotics from respiratory perspective - pt denies any significant anxiety - has o2, needs to use it at night and with exertion DC planning with office follow up DVT prophylaxis at all times
[2016-09-04] MEDS ORDERED: ADVAIR 250-501 EACH INH (10:45)
--- NOTE | 2016-09-05 18:00 | Discharge Summary ---
Visit Information Visit Dates Admission Date: 09/02/16 Discharge Date: 09/04/16 Hospital Course Course Attending Physician: RANDY THOMPSON M.D Primary Care Physician: ILIANA MARTINES,CHAUNCEY Roy Consulting Request: 1 Consulting Specialty: Pulmonary Disease Consulting Request: 2 Consulting Specialty: Psychiatry Hospital Course: 46 year old woman with multple medical problems significant for COPD on 2.0L home oxygen, obstructive sleep apnea on CPAP, anxiety/depression, bipolar, schizoaffective disorder, PTSD, and chronic pain seen for evaluation worsening shortness of breath and reported hypoxia to 84% at home. COPD Exacerbation Patient with extensive pulmonary history and multiple psychiatric problems seen for evaluation of shortness of breath and hypoxia. Patient of ventilating expert Dr. Palomares. She was admitted to the general medicine floor and started on an oral steroid taper. Pulmonolgy consult was placed with Dr. Palomares whom felt that her symptoms may have truly been due to anxiety. Patient demonstrated dramatic improvement with oral steroids and was discharged to home with instruction to follow up with her primary care provider after discharge. Anxiety / Depression / Bipolar Disorder Patient with extensive psychiatric problems seen admitted for evaluation of shortness of breath. Patient was continued on her multiple medications, psych consult placed to help with controlling her worsening symptoms. No medication changes were made and patient was instructed to follow up with her previously scheduled appointment at [facility] on 09/05/16. Allergies: Coded Allergies: amoxicillin (From Augmentin) (Intermediate, SICK - VOMITING 02/03/16) clavulanic acid (From Augmentin) (Intermediate, SICK - VOMITING 02/03/16) lithium (Intermediate, SICK - NAUSEA, DIARRHEA, VOMITING 02/03/16) Sulfa (Sulfonamide Antibiotics) (BAD RASH ALL OVER BODY 02/03/16) erythromycin base (R/O ERYTHROMYCIN (PER DR. Thomas KULKARNI MD) 02/03/16) haloperidol (From Haldol) (PER PT GETS OUT OF IT, DOESNT MOVE 02/03/16) morphine (PER PT DIDNT LIKE THE WAY IT MADE HER FEEL 02/03/16) Significant Procedures: SERVICE DATE: 09/02/16 EXAM TYPE: RAD - XRY-PORTABLE CHEST XRAY IMPRESSION: Unremarkable examination. Disposition Summary Disposition Principal Diagnosis: COPD exacerbation Additional Diagnosis: Anxiety/Depression Discharge Disposition: home or self care Discharge Instructions General Discharge Information Code Status: Full Code Patient's Diet: Diabetic Diet Patient's Activity: Return to full activity as tolerated Follow-Up Instructions/Appts: Follow up with Dr. Palomares and your primary care provider after discharge. Take prednisone as directed. Medications at Discharge Discharge Medications: Stop taking the following medications: Doxycycline Hyclate (Doxycycline Hyclate) 100 MG CAPSULE ORAL TWICE DAILY Qty = 14 Prednisone (Prednisone) 20 MG TABLET ORAL DAILY Qty = 8 Continue taking these medications: Albuterol Sulfate (Proair Hfa) 90 MCG HFA.AER.AD 2 Puff Inhale through mouth EVERY 4-6 HOURS NEEDED as needed for COPD Comments: NOT GIVEN WHILE HOSPITALIZED Cyanocobalamin (Vitamin B-12) 1,000 MCG TABLET 1 Tablet ORAL DAILY Comments: LAST DOSE GIVEN 09/04/16 AT 8:00 AM Clonazepam (Clonazepam) 1 MG TABLET 1 Tablet ORAL DAILY Comments: LAST DOSE GIVEN 09/04/16 AT 8:00 AM Pantoprazole Sodium (Protonix) 20 MG TABLET.DR 1 Tablet ORAL TWICE DAILY Comments: PRILOSEC GIVEN WHILE HOSPITALIZED, 09/04/16 AT 6:00 AM Solifenacin Succinate (Vesicare) 5 MG TABLET 1 Tablet ORAL DAILY Comments: OXYBUTIN GIVEN WHILE HOSPITALIZED, 09/04/16 AT 8:00 AM Divalproex Sodium (Depakote ER) 500 MG TAB.ER.24H 2 Tablet ORAL DAILY Comments: LAST DOSE GIVEN 09/04/16 AT 8:00 AM Divalproex Sodium (Depakote ER) 500 MG TAB.ER.24H 3 Tablet ORAL Every night Comments: LAST DOSE GIVEN 09/03/16 AT 10:00 PM Aripiprazole (Abilify) 10 MG TABLET 1 Tablet ORAL DAILY Comments: LAST DOSE GIVEN 09/04/16 AT 8:00 AM Furosemide (Lasix) 20 MG TABLET 1 Tablet ORAL TWICE DAILY Comments: LAST DOSE GIVEN 09/04/16 AT 8:00 AM Clozapine (Clozaril) 100 MG TABLET 1 Tablet ORAL Every night Comments: 125MG DOSE Oxycodone HCl/Acetaminophen (Oxycodone-Acetaminophen 5-325) 5 MG-325 MG TABLET 1 Tablet ORAL 2 x Daily as needed as needed for PAIN Qty = 60 Comments: LAST DOSE GIVEN 09/04/16 AT 8:00 AM Ibuprofen (Ibuprofen) 800 MG TABLET 1 Tablet ORAL DAILY Qty = 90 Rosuvastatin Calcium (Crestor) 10 MG TABLET 1 Tablet ORAL DAILY Qty = 30 Comments: LIPITOR GIVEN WHILE HOSPITALIZED, 09/03/16 AT 5:00 PM Clonazepam (Clonazepam) 0.5 MG TABLET 1 Tablet ORAL Every night Comments: LAST DOSE GIVEN 09/03/16 AT 10:00 PM Clozapine (Clozaril) 25 MG TABLET 1 Tablet ORAL Every night Qty = 28 Comments: 125MG DOSE LAST DOSE GIVEN 09/03/16 AT 10:00 PM Escitalopram Oxalate (Escitalopram Oxalate) 20 MG TABLET 1 Tablet ORAL DAILY Qty = 30 Comments: LAST DOSE GIVEN 09/04/16 AT 8:00 AM Fluticasone/Salmeterol (Advair 250-50 Diskus) 250 MCG-50 MCG/DOSE BLST.W.DEV 1 Puff Inhale through mouth TWICE DAILY Qty = 60 Comments: NOT GIVEN WHILE HOSPITALIZED Benzonatate (Tessalon [place]) 100 MG CAPSULE 1 Capsule ORAL THREE TIMES DAILY as needed for cough Qty = 30 Start taking the following new medications: Prednisone (Prednisone) 10 MG TABLET 0 ORAL TAPER Qty = 26 No Refills Instructions: Take 4 tablets daily from 09/05-09/06 Take 3 tablets daily from 09/07-09/09 Take 2 tablets daily from 09/10-09/12 Take 1 tablet daily from 09/13-09/15 Comments: LAST DOSE TAKEN 09/04/16 AT 8:00 AM, 40MG Copies To: ILIANA MARTINES,CHAUNCEY PALOMARES MD,YOHANNES
== END 2016-09-04 13:00 | disposition home health service (06) | DRG 191 ==
LOC: ERH 21:04 → 2NB 23:25 → ERHI 23:25 → ENRESERV 09-03 00:12 → 2NB 09-03 01:02 → ENPENDDIS 09-04 09:28 → 2NB 09-04 13:00
PROVIDERS: Internal Medicine Cardiovascular Disease; Pediatrics; ADMIT Internal Medicine
DX: J44.1 Chronic obstructive pulmonary disease with (acute) exacerbation (principal); J96.11 Chronic respiratory failure with hypoxia; Z99.81 Dependence on supplemental oxygen; Z68.42 Body mass index [BMI] 45.0-49.9, adult; F25.9 Schizoaffective disorder, unspecified; J45.909 Unspecified asthma, uncomplicated; G47.33 Obstructive sleep apnea (adult) (pediatric); E78.5 Hyperlipidemia, unspecified; K21.9 Gastro-esophageal reflux disease without esophagitis; F32.9 Major depressive disorder, single episode, unspecified; F43.10 Post-traumatic stress disorder, unspecified; E66.9 Obesity, unspecified; F17.200 Nicotine dependence, unspecified, uncomplicated
CPT/HCPCS: 2NBSP; ERO; 36415; 82436; 93005; 93010; 96374; 99291; J0401; J1650; J2930; J3490

== ENCOUNTER 2016-09-21 18:35 | Emergency (ER) | payer OTHER ==
[~2016-09-21 18:35] MED LIST changes: +LEXAPRO20 M1 PO; +PREDNISONE10 M2 PO
--- NOTE | 2016-09-21 19:57 | ED GENERAL ADULT ---
History of Present Illness General Chief Complaint: Dyspnea (COPD, CHF, Other) Stated Complaint: COPD FLARE Vital Signs & Intake/Output Vital Signs & Intake/Output Vital Signs Date Time Temp Pulse Resp B/P B/P Pulse O2 O2 Flow FiO2 Mean Ox Delivery Rate 09/213 97.6 111 20 131/90 95 Nasal 3.0L Cannula Allergies Coded Allergies: amoxicillin (From Augmentin) (Intermediate, SICK - VOMITING 02/03/16) clavulanic acid (From Augmentin) (Intermediate, SICK - VOMITING 02/03/16) lithium (Intermediate, SICK - NAUSEA, DIARRHEA, VOMITING 02/03/16) Sulfa (Sulfonamide Antibiotics) (BAD RASH ALL OVER BODY 02/03/16) erythromycin base (R/O ERYTHROMYCIN (PER DR. Thomas KULKARNI MD) 02/03/16) haloperidol (From Haldol) (PER PT GETS OUT OF IT, DOESNT MOVE 02/03/16) morphine (PER PT DIDNT LIKE THE WAY IT MADE HER FEEL 02/03/16) Reconcile Medications Albuterol Sulfate (Proair Hfa) 90 MCG HFA.AER.AD 2 PUF INH Q4-6 PRN PRN COPD (Reported) Aripiprazole (Abilify) 10 MG TABLET 1 TAB PO DAILY depression (Reported) Benzonatate (Tessalon [place]) 100 MG CAPSULE 1 CAP PO TID PRN cough Clonazepam 1 MG TABLET 1 TAB PO DAILY PTSD (Reported) Clonazepam 0.5 MG TABLET 1 TAB PO QPM PTSD (Reported) Clozapine (Clozaril) 25 MG TABLET 1 TAB PO QPM MENTAL HEALTH (Reported) Clozapine (Clozaril) 100 MG TABLET 1 TAB PO QPM MENTAL HEALTH (Reported) Cyanocobalamin (Vitamin B-12) 1,000 MCG TABLET 1 TAB PO DAILY SUPPLEMENT ( Reported) Divalproex Sodium (Depakote ER) 500 MG TAB.ER.24H 2 TAB PO DAILY MENTAL HEALTH (Reported) Divalproex Sodium (Depakote ER) 500 MG TAB.ER.24H 3 TAB PO QPM MENTAL HEALTH (Reported) Escitalopram Oxalate 20 MG TABLET 1 TAB PO DAILY MENTAL HEALTH (Reported) Fluticasone/Salmeterol (Advair 250-50 Diskus) 250 MCG-50 MCG/DOSE BLST.W.DEV 1 PUF INH BID BREATHING PROBLEMS (Reported) Furosemide (Lasix) 20 MG TABLET 1 TAB PO BID EDEMA (Reported) Ibuprofen 800 MG TABLET 1 TAB PO DAILY PAIN (Reported) Oxycodone HCl/Acetaminophen (Oxycodone-Acetaminophen 5-325) 5 MG-325 MG TABLET 1 TAB PO BIDP PRN PAIN (Reported) Pantoprazole Sodium (Protonix) 20 MG TABLET.DR 1 TAB PO BID GI (Reported) Prednisone 10 MG TABLET 0 PO TAPER COPD Take 4 tablets daily from 09/05-09/06 Take 3 tablets daily from 09/07-09/09 Take 2 tablets daily from 09/10-09/12 Take 1 tablet daily from 09/13-09/15 Rosuvastatin Calcium (Crestor) 10 MG TABLET 1 TAB PO DAILY HPL (Reported) Solifenacin Succinate (Vesicare) 5 MG TABLET 1 TAB PO DAILY BLADDER HEALTH ( Reported) Triage Note: PRESENTS TO ED REQUESTING EVALUATION SECONDARY TO INCREASE SOB. HAS BEEN SMOKE FREE X 3 WEEKS. DECLINED TO PROVIDE WEIGHT. Past History Travel History Traveled to [place] past 21 day No Medical History Neurological: NONE EENT: allergies Cardiovascular: NONE Respiratory: asthma, bronchitis, COPD, obstructive sleep apnea Gastrointestinal: GERD, irritable bowel syndrome Hepatic: NONE Renal: NONE Musculoskeletal: chronic back pain, falls, sciatica Psychiatric: anxiety, bipolar disease, chronic pain disorder, depression, schizo affective disorder, PTSD Endocrine: obesity Blood Disorders: NONE Cancer(s): NONE HOUSEKEEPING ASSOCIATE/Reproductive: NOCTURNAL INCONTINENCE History of MRSA: No History of VRE: No History of CDIFF: No Influenza Vaccine: 05/06/16 Surgical History Surgical History: laminectomy Psychosocial History Who do you live with Patient/Self Services at Home Home Health Aide, Nursing What is your primary language Spanish Tobacco Use: Quit <30 days ago Family History Family History, If Any: Relation not specified for: *No pertinent family history Progress Plan of Care: Orders Procedure Date/time Status XRY-CHEST XRAY, PA AND LATERAL 09/21 1920 Active Departure Departure Condition: Stable Referrals: ILIANA MARTINES,CHAUNCEY Roy (PCP/Family) Departure Forms: Customer Survey General Discharge Information
--- NOTE | 2016-09-21 20:01 | ED DYSPNEA/ASTHMA COMPLAINT ---
History of Present Illness General Chief Complaint: Dyspnea (COPD, CHF, Other) Stated Complaint: COPD FLARE Source: patient, old records Exam Limitations: no limitations Vital Signs & Intake/Output Vital Signs & Intake/Output Vital Signs Date Time Temp Pulse Resp B/P B/P Pulse O2 O2 Flow FiO2 Mean Ox Delivery Rate 09/21 2200 97 Nasal 3.0L Cannula 09/21 2052 98.0 96 20 132/69 96 Nasal 3.0L Cannula 09/21 2049 96 Nasal 3.0L Cannula 09/21 2030 96 Nasal 3.0L Cannula 09/21 1902 97.6 111 20 131/90 95 Nasal 3.0L Cannula Allergies Coded Allergies: amoxicillin (From Augmentin) (Intermediate, SICK - VOMITING 02/03/16) clavulanic acid (From Augmentin) (Intermediate, SICK - VOMITING 02/03/16) lithium (Intermediate, SICK - NAUSEA, DIARRHEA, VOMITING 02/03/16) Sulfa (Sulfonamide Antibiotics) (BAD RASH ALL OVER BODY 02/03/16) erythromycin base (R/O ERYTHROMYCIN (PER DR. Thomas KULKARNI MD) 02/03/16) haloperidol (From Haldol) (PER PT GETS OUT OF IT, DOESNT MOVE 02/03/16) morphine (PER PT DIDNT LIKE THE WAY IT MADE HER FEEL 02/03/16) Reconcile Medications Albuterol Sulfate (Proair Hfa) 90 MCG HFA.AER.AD 2 PUF INH Q4-6 PRN PRN COPD (Reported) Albuterol Sulfate 1.25 MG/3 ML VIAL.NEB 1 Vial INH/SOTO Q4-6 PRN COPD Aripiprazole (Abilify) 10 MG TABLET 1 TAB PO DAILY depression (Reported) Benzonatate (Tessalon Perle) 100 MG CAPSULE 1 CAP PO TID PRN cough Clonazepam 1 MG TABLET 1 TAB PO DAILY PTSD (Reported) Clonazepam 0.5 MG TABLET 1 TAB PO QPM PTSD (Reported) Clozapine (Clozaril) 25 MG TABLET 1 TAB PO QPM MENTAL HEALTH (Reported) Clozapine (Clozaril) 100 MG TABLET 1 TAB PO QPM MENTAL HEALTH (Reported) Cyanocobalamin (Vitamin B-12) 1,000 MCG TABLET 1 TAB PO DAILY SUPPLEMENT ( Reported) Divalproex Sodium (Depakote ER) 500 MG TAB.ER.24H 2 TAB PO DAILY MENTAL HEALTH (Reported) Divalproex Sodium (Depakote ER) 500 MG TAB.ER.24H 3 TAB PO QPM MENTAL HEALTH (Reported) Escitalopram Oxalate 20 MG TABLET 1 TAB PO DAILY MENTAL HEALTH (Reported) Fluticasone/Salmeterol (Advair 250-50 Diskus) 250 MCG-50 MCG/DOSE BLST.W.DEV 1 PUF INH BID BREATHING PROBLEMS (Reported) Furosemide (Lasix) 20 MG TABLET 1 TAB PO BID EDEMA (Reported) Ibuprofen 800 MG TABLET 1 TAB PO DAILY PAIN (Reported) Oxycodone HCl/Acetaminophen (Oxycodone-Acetaminophen 5-325) 5 MG-325 MG TABLET 1 TAB PO BIDP PRN PAIN (Reported) Pantoprazole Sodium (Protonix) 20 MG TABLET.DR 1 TAB PO BID GI (Reported) Prednisone 10 MG TABLET 1 TAB PO AD COPD DAY1/DAY2 FOUR TABS DAY3/DAY4 THREE TABS DAY5/DAY6 TWO TABS DAY 7 ONE TAB Prednisone 10 MG TABLET 0 PO TAPER COPD Take 4 tablets daily from 09/05-09/06 Take 3 tablets daily from 09/07-09/09 Take 2 tablets daily from 09/10-09/12 Take 1 tablet daily from 09/13-09/15 Rosuvastatin Calcium (Crestor) 10 MG TABLET 1 TAB PO DAILY HPL (Reported) Solifenacin Succinate (Vesicare) 5 MG TABLET 1 TAB PO DAILY BLADDER HEALTH ( Reported) Triage Note: PRESENTS TO ED REQUESTING EVALUATION SECONDARY TO INCREASE SOB. HAS BEEN SMOKE FREE X 3 WEEKS. DECLINED TO PROVIDE WEIGHT. Triage Nurses Notes Reviewed? yes Onset: Gradual Duration: getting worse Timing: recent history Severity: severe Prior Episodes/Possible Cause: chronic episodes HPI: Patient is a 46-year-old female with past medical history of COPD on home O2, obstructive sleep apnea on CPAP, anxiety, depression, bipolar disorder, schizoaffective disorder, PTSD and chronic pain who recently was admitted to [facility] on September 02 and discharged September 04 for concerns of COPD exacerbation. Patient does state that for the past 3 days she's been residing with her sister who is a smoker and patient was also outside today which does exacerbate her symptoms when pollen is high. Patient also does not have her nebulizer in which it is at her sister's and she has not used this in a few days. Patient complains of shortness of breath and wheezing and mild nonproductive cough. Denies any fever chills chest pain and arm pain jaw pain nausea vomiting or leg swelling hemoptysis. Denies any current steroid use. Patient had to increase her oxygen supplementation to 3 L today. 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 Palomares (CORTNEY BORJA) Past History Travel History Traveled to [place] past 21 day No Medical History Any Pertinent Medical History? 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 No (CORTNEY BORJA) Review of Systems Review of Systems Constitutional: Denies: chills, fever. EENTM: Reports: no symptoms. Respiratory: Reports: see HPI, cough, short of breath, wheezing. Cardiovascular: Reports: no symptoms. GI: Reports: no symptoms. Genitourinary: Reports: no symptoms. Musculoskeletal: Reports: no symptoms. Skin: Reports: no symptoms. Neurological/Psychological: Reports: no symptoms. Hematologic/Endocrine: Reports: no symptoms. Immunologic/Allergic: Reports: no symptoms. All Other Systems: Reviewed and Negative (CORTNEY BORJA) Physical Exam Physical Exam General Appearance: no apparent distress, obese Respiratory: wheezing Comments: HEENT: Normal EENT exam, extraocular motion intact, no nystagmus. Pupils equally round and reactive to light and accommodation. Nose is atraumatic. External auditory canal and Tympanic membranes clear. Pharynx normal. No swelling or edema. Neck: Supple, no lymphadenopathy, normal range of motion without pain or tenderness Back: Nontender, no CVA tenderness. Cardiovascular: Regular rate and rhythms no murmurs rubs or gallops, normal JVP Respiratory: Chest nontender. No respiratory distress. Abdomen: Soft, nontender nondistended, no appreciable organomegaly. Normal bowel sounds. No ascites Extremity: No edema, no calf tenderness to palpation, normal and equal pulses. Neuro: Alert oriented x3, Skin: No appreciable rash on exposed skin, skin is warm and dry. Psych: Mood and affect is normal, memory and judgment is normal. Core Measures ACS in differential dx? No Severe Sepsis Present: No Septic Shock Present: No (CORTNEY BORJA) Progress Differential Diagnosis: asthma, AMI, bronchitis, costochondritis, CHF, COPD, musculoskeletal pain, pericarditis, pulmonary embolism, pneumonia, pneumothorax, unstable angina Plan of Care: Current Medications Sig/Sanedep Start time Last Medication Dose Stop Time Status Admin Albuterol Sulfate 3 ML ONCE ONE 09/21 2014 UNVr (Proventil) 09/22 2015 Ipratropium [place] 2.5 ML ONCE ONE 09/21 2014 UNVr (Atrovent) 09/22 2015 Prednisone 60 MG ONCE ONE 09/21 2014 UNVr 09/22 201509/21/2016 9:01:16 PM after initiation of first nebulizer patient states that she felt improved however wheezing still occurred where patient was given continuous nebulizer 09/21/2016 10:09:21 PM- patient had significant resolution of wheezing after continuous nebulizer was administered. Patient with 3 L of O2 had 99% room air no respiratory distress. I strongly advised patient to obtain the nebulizer from her sister which will be delivered to her house tomorrow and patient to begin prednisone regimen and follow-up with grinder machine setter. Upon discharge patient looks well no apparent distress and will comply with discharge instructions and had no questions (CORTNEY BORJA) Diagnostic Imaging: Viewed by Me: Radiology Read. Radiology Impression: no acute abnormality Initial ED EKG: none Comments: PATIENT: SAVANAH FOSTER PRESENT AGE: 46 PATIENT ACCOUNT NO: [id number] : 68 LOCATION: [facility] ([facility] ORDERING PHYSICIAN: CORTNEY TEE SERVICE DATE: 09/21/16 EXAM TYPE: RAD - XRY-CHEST XRAY, PA AND LATERAL EXAMINATION: CHEST 2 VIEWS CLINICAL INFORMATION: Increased shortness of breath. COMPARISON: 09/02/2016. TECHNIQUE: PA and lateral views of the chest were obtained. FINDINGS: The cardiac silhouette is not enlarged. The mediastinal and hilar contours are unremarkable. There are neither pleural effusions nor pneumothoraces. There are no consolidations. The osseous structures are unremarkable. IMPRESSION: No evidence for acute disease. DICTATED BY: TARYN PAK MD DATE/TIME DICTATED:09/21/162002 (CORTNEY BORJA) Departure Departure Disposition: HOME OR SELF CARE Condition: Stable Clinical Impression Primary Impression: COPD exacerbation Referrals: ILIANA MARTINES,CHAUNCEY Roy (PCP/Family) Additional Instructions: As discussed begin the prescription of prednisone tomorrow as YOU HAVE received this medication the emergency room today. Begin the prescription of albuterol vials nebulizer for your symptoms and begin and continue previously prescribed medications and nebulizer treatments. If symptoms worsen return to emergency room. If no better on Saturday follow-up with your grinder machine setter. prescription is waiting to [facility] Departure Forms: Customer Survey General Discharge Information Prescriptions: Current Visit Scripts Prednisone 1 TAB PO AD #19 TAB DAY1/DAY2 FOUR TABS DAY3/DAY4 THREE TABS DAY5/DAY6 TWO TABS DAY 7 ONE TAB Albuterol Sulfate 1 Vial INH/SOTO Q4-6 PRN COPD #150 ML (CORTNEY BORJA) PA/CERTIFIED ART THERAPIST Co-Sign Statement Statement: ED Attending supervision documentation- [] I saw and evaluated the patient. I have also reviewed all the pertinent lab results and diagnostic results. I agree with the findings and the plan of care as documented in the PA's/CERTIFIED ART THERAPIST's documentation. [x] I have reviewed the ED Record and agree with the PA's/CERTIFIED ART THERAPIST's documentation. [] Additions or exceptions (if any) to the PAs/CERTIFIED ART THERAPIST's note and plan are summarized below: [] (MACHO MARTINES,HALLIE Santos) Critical Care Note Critical Care Note Critical Care Time: non-applicable (CORTNEY BORJA)
--- NOTE | 2016-09-21 20:07 | RADIOLOGY REPORT ---
EXAMINATION: CHEST 2 VIEWS CLINICAL INFORMATION: Increased shortness of breath. COMPARISON: 09/02/2016. TECHNIQUE: PA and lateral views of the chest were obtained. FINDINGS: The cardiac silhouette is not enlarged. The mediastinal and hilar contours are unremarkable. There are neither pleural effusions nor pneumothoraces. There are no consolidations. The osseous structures are unremarkable. IMPRESSION: No evidence for acute disease.
[2016-09-21 20:53] VITALS: BP 132/69
[2016-09-21] MEDS ORDERED: PREDNISONE10 M2 PO (22:06)
[2016-09-21] MEDS ORDERED: ALBUTEROL1.25 MG/1 INH/SOL (22:07)
== END 2016-09-21 22:24 ==
LOC: ERH 18:35
DX: J44.1 Chronic obstructive pulmonary disease with (acute) exacerbation (principal); Z87.891 Personal history of nicotine dependence
CPT/HCPCS: 1263; 1426; 94644

== ENCOUNTER 2016-09-22 20:26 | Emergency (ER) | payer OTHER ==
[~2016-09-22 20:26] MED LIST changes: +ALBUTEROL1.25 MG/1 INH/SOL
--- NOTE | 2016-09-22 20:50 | ED GENERAL ADULT ---
History of Present Illness General Chief Complaint: Chest Pain Stated Complaint: CP Source: patient Exam Limitations: no limitations Vital Signs & Intake/Output Vital Signs & Intake/Output Vital Signs Date Time Temp Pulse Resp B/P B/P Pulse O2 O2 Flow FiO2 Mean Ox Delivery Rate 09/23 0134 97.9 97 22 139/82 95 09/23 0127 97.0 91 22 139/87 97 Nasal 3.0L Cannula 09/22 2240 97.0 99 19 128/72 98 Room Air 09/22 2130 96 Nasal 3.0L Cannula 09/22 2038 96.6 112 20 132/74 97 Nasal 3.0L Cannula ED Intake and Output 09/23 0000 09/22 1200 Intake Total Output Total Balance Patient 287 lb Weight Allergies Coded Allergies: amoxicillin (From Augmentin) (Intermediate, SICK - VOMITING 02/03/16) clavulanic acid (From Augmentin) (Intermediate, SICK - VOMITING 02/03/16) lithium (Intermediate, SICK - NAUSEA, DIARRHEA, VOMITING 02/03/16) Sulfa (Sulfonamide Antibiotics) (BAD RASH ALL OVER BODY 02/03/16) erythromycin base (R/O ERYTHROMYCIN (PER DR. Thomas KULKARNI MD) 02/03/16) haloperidol (From Haldol) (PER PT GETS OUT OF IT, DOESNT MOVE 02/03/16) morphine (PER PT DIDNT LIKE THE WAY IT MADE HER FEEL 02/03/16) Reconcile Medications Albuterol Sulfate (Proair Hfa) 90 MCG HFA.AER.AD 2 PUF INH Q4-6 PRN PRN COPD (Reported) Albuterol Sulfate 1.25 MG/3 ML VIAL.NEB 1 Vial INH/SOTO Q4-6 PRN COPD Aripiprazole (Abilify) 10 MG TABLET 1 TAB PO DAILY depression (Reported) Benzonatate (Tessalon Perle) 100 MG CAPSULE 1 CAP PO TID PRN cough Clonazepam 1 MG TABLET 1 TAB PO DAILY PTSD (Reported) Clonazepam 0.5 MG TABLET 1 TAB PO QPM PTSD (Reported) Clozapine (Clozaril) 25 MG TABLET 1 TAB PO QPM MENTAL HEALTH (Reported) Clozapine (Clozaril) 100 MG TABLET 1 TAB PO QPM MENTAL HEALTH (Reported) Cyanocobalamin (Vitamin B-12) 1,000 MCG TABLET 1 TAB PO DAILY SUPPLEMENT ( Reported) Divalproex Sodium (Depakote ER) 500 MG TAB.ER.24H 2 TAB PO DAILY MENTAL HEALTH (Reported) Divalproex Sodium (Depakote ER) 500 MG TAB.ER.24H 3 TAB PO QPM MENTAL HEALTH (Reported) Escitalopram Oxalate 20 MG TABLET 1 TAB PO DAILY MENTAL HEALTH (Reported) Fluticasone/Salmeterol (Advair 250-50 Diskus) 250 MCG-50 MCG/DOSE BLST.W.DEV 1 PUF INH BID BREATHING PROBLEMS (Reported) Furosemide (Lasix) 20 MG TABLET 1 TAB PO BID EDEMA (Reported) Ibuprofen 800 MG TABLET 1 TAB PO DAILY PAIN (Reported) Pantoprazole Sodium (Protonix) 20 MG TABLET.DR 1 TAB PO BID GI (Reported) Prednisone 10 MG TABLET 1 TAB PO AD COPD DAY1/DAY2 FOUR TABS DAY3/DAY4 THREE TABS DAY5/DAY6 TWO TABS DAY 7 ONE TAB Prednisone 10 MG TABLET 0 PO TAPER COPD Take 4 tablets daily from 09/05-09/06 Take 3 tablets daily from 09/07-09/09 Take 2 tablets daily from 09/10-09/12 Take 1 tablet daily from 09/13-09/15 Rosuvastatin Calcium (Crestor) 10 MG TABLET 1 TAB PO DAILY HPL (Reported) Solifenacin Succinate (Vesicare) 5 MG TABLET 1 TAB PO DAILY BLADDER HEALTH ( Reported) Triage Note: PER PT SEEN LAST NIGHT FOR CP, PAIN CONTINUES, FEELS LIKE HER USUAL GERD PRESENTATION.REPORTS PAIN WORSE AND BREATHING WORSE THAN YESTERDAY Triage Nurses Notes Reviewed? yes HPI: 46-year-old female with a past medical history of COPD (on baseline home O2 of 3 L), GERD, IBS, sleep apnea back pain, schizoaffective disorder, PTSD, anxiety, depression presenting with an episode of sharp nonradiating right-sided chest pain that began around 8 PM. Pain resolved about an hour later after aspirin was given on EMS arrival. Denies diaphoresis, nausea, vomiting, lightheadedness , dizziness or shortness of breath. Seen in the ED last night and diagnosed with COPD exacerbation, patient was discharged home with course of steroids. Past History Travel History Traveled to [place] past 21 day No Medical History Any Pertinent Medical History? 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 No Review of Systems Review of Systems Constitutional: Denies: chills, fever. Respiratory: Reports: cough, short of breath, wheezing. Denies: sputum production. Cardiovascular: Reports: chest pain. Denies: syncope. GI: Reports: no symptoms. Denies: nausea, vomiting. Genitourinary: Reports: no symptoms. Musculoskeletal: Reports: no symptoms. Neurological/Psychological: Reports: no symptoms. Physical Exam Physical Exam General Appearance: well developed/nourished, no apparent distress Head: atraumatic Respiratory: chest non-tender, no respiratory distress, wheezing, no tachypnea or hypoxia Cardiovascular: tachycardia, regular rhythm Gastrointestinal: soft, non-tender Core Measures ACS in differential dx? Yes CVA/TIA Diagnosis: No Severe Sepsis Present: No Septic Shock Present: No Progress Differential Diagnoses I considered the following diagnoses in my evaluation of the patient: [PA versus angina versus COPD exacerbation versus bronchitis versus pneumonia versus pleural effusion versus pleurisy versus musculoskeletal pain.] Plan of Care: Orders Procedure Date/time Status TROPONIN LEVEL 09/23 0100 Complete TROPONIN LEVEL 09/22 2116 Complete PHOSPHORUS 09/22 2116 Complete MAGNESIUM 09/22 2116 Complete COMPREHENSIVE METABOLIC PANEL 09/22 2116 Complete CBC WITHOUT DIFFERENTIAL 09/22 2116 Complete EKG 09/22 2037 Active Current Medications Sig/Sandeep Start time Last Medication Dose Stop Time Status Admin Sodium Chloride 1,000 ML BOLUS ONE 09/23 0030 CAN (Normal Saline 0.9%) 09/23 0129 Laboratory Tests 09/23/16 0050: Troponin I < 0.01 09/22/168: Anion Gap 11, Estimated GFR > 60, BUN/Creatinine Ratio 32.9 H, Glucose 213 H, Calcium 9.6, Phosphorus 3.9, Magnesium 2.0, Total Bilirubin 0.3, AST 15, ALT 41, Alkaline Phosphatase 76, Troponin I < 0.01, Total Protein 6.8, Albumin 4.1, Globulin 2.7, Albumin/Globulin Ratio 1.5 09/22/162127: CBC w Diff MAN DIFF ORDERED, RBC 3.99 L, MCV 94.0, MCH 31.3 H, RDW 14.7 H, MPV 8.2, Gran % 83.5 H, Lymphocytes % 9.7 L, Monocytes % 6.7, Eosinophils % 0, Basophils % 0.1, Absolute Granulocytes 14.2 H, Segmented Neutrophils 80 H, Absolute Lymphocytes 1.6, Lymphocytes 15 L, Monocytes 4, Absolute Monocytes 1.1 H, Eosinophils 1, Absolute Eosinophils 0, Absolute Basophils 0, Platelet Estimate ADEQUATE, Basophilic Stippling SLIGHT, PUBS MCHC 33.3, Fld Total RBCs Counted 100 CXR from yesterday's visit was unremarkable, no need for repeat imaging at this time. WBC elevated to 17 likely from new course of steroids that was started yesterday. EKG shows sinus tach to 106, initial trop neg, repeat trop at 3 hr xiomara remained neg. All other labs unremarkable. Pt instructed to finish her course of steroids for COPD exacerbation and f/u with PMD. (MONE ESTRADA,AIDEN) Initial ED EKG: sinus tachy to 106 Departure Departure Disposition: HOME OR SELF CARE Condition: Stable Clinical Impression Primary Impression: Chest pain Referrals: ILIANA MARTINES,CHAUNCEY Roy (PCP/Family) Additional Instructions: Follow-up with on Saturday. Continue course of steroids that was prescribed to yesterday. Return to the ED for any new or worsening symptoms. Departure Forms: Customer Survey General Discharge Information Critical Care Note Critical Care Note Critical Care Time: non-applicable
[2016-09-22 21:47] LABS: ABSOLUTE BASOPHIL COUNT 0 /CUMM (0.0-0.2); ABSOLUTE EOSINOPHIL COUNT 0 /CUMM (0.0-0.7); ABSOLUTE GRANULOCYTE CT 14.2 /CUMM (1.4-6.5); ABSOLUTE LYMPH COUNT 1.6 /CUMM (1.2-3.4); ABSOLUTE MONOCYTE COUNT 1.1 /CUMM (0.10-0.60); BASOPHIL % 0.1 % (0.0-2.0); EOSINOPHIL % 0 % (0-5); GRANULOCYTE % 83.5 % (42.2-75.2); HEMATOCRIT 37.5 % (37-47); MEAN CORPUSCULAR HGB 31.3 PG (27.0-31.0); MEAN CORPUSCULAR HGB CONC 33.3 G/DL (33.0-37.0); MEAN PLATELET VOLUME 8.2 FL (7.4-10.4); PLATELET COUNT 261 /CUMM (130-400); RBC DISTRIBUTION WIDTH 14.7 % (11.5-14.5); RED BLOOD CELL CT 3.99 /CUMM (4.20-5.40)
[2016-09-23 01:34] VITALS: BP 139/82
== END 2016-09-23 01:57 ==
LOC: ERH 20:26
PROVIDERS: Physician Assistant
DX: R07.9 Chest pain, unspecified (principal)
CPT/HCPCS: 1263; 93005; 93010

== ENCOUNTER 2016-10-19 23:01 | Emergency (ER) | payer OTHER ==
--- NOTE | 2016-10-19 23:26 | ED GENERAL ADULT ---
History of Present Illness General Chief Complaint: General Adult Stated Complaint: BIBA EVAL Source: patient, old records, EMS Exam Limitations: no limitations Vital Signs & Intake/Output Vital Signs & Intake/Output Vital Signs Date Time Temp Pulse Resp B/P B/P Pulse O2 O2 Flow FiO2 Mean Ox Delivery Rate 10/20 0309 84 22 120/58 99 Nasal 2.0L Cannula 10/19 2307 96.5 100 18 116/56 99 Nasal 3.0L Cannula Allergies Coded Allergies: amoxicillin (From Augmentin) (Intermediate, SICK - VOMITING 02/03/16) clavulanic acid (From Augmentin) (Intermediate, SICK - VOMITING 02/03/16) lithium (Intermediate, SICK - NAUSEA, DIARRHEA, VOMITING 02/03/16) Sulfa (Sulfonamide Antibiotics) (BAD RASH ALL OVER BODY 02/03/16) erythromycin base (R/O ERYTHROMYCIN (PER DR. Thomas KULKARNI MD) 02/03/16) haloperidol (From Haldol) (PER PT GETS OUT OF IT, DOESNT MOVE 02/03/16) morphine (PER PT DIDNT LIKE THE WAY IT MADE HER FEEL 02/03/16) Reconcile Medications Albuterol Sulfate (Proair Hfa) 90 MCG HFA.AER.AD 2 PUF INH Q4-6 PRN PRN COPD (Reported) Albuterol Sulfate 1.25 MG/3 ML VIAL.NEB 1 Vial INH/SOTO Q4-6 PRN COPD Aripiprazole (Abilify) 10 MG TABLET 1 TAB PO DAILY depression (Reported) Benzonatate (Tessalon Perle) 100 MG CAPSULE 1 CAP PO TID PRN cough Clonazepam 1 MG TABLET 1 TAB PO DAILY PTSD (Reported) Clonazepam 0.5 MG TABLET 1 TAB PO QPM PTSD (Reported) Clozapine (Clozaril) 25 MG TABLET 1 TAB PO QPM MENTAL HEALTH (Reported) Clozapine (Clozaril) 100 MG TABLET 1 TAB PO QPM MENTAL HEALTH (Reported) Cyanocobalamin (Vitamin B-12) 1,000 MCG TABLET 1 TAB PO DAILY SUPPLEMENT ( Reported) Divalproex Sodium (Depakote ER) 500 MG TAB.ER.24H 2 TAB PO DAILY MENTAL HEALTH (Reported) Divalproex Sodium (Depakote ER) 500 MG TAB.ER.24H 3 TAB PO QPM MENTAL HEALTH (Reported) Escitalopram Oxalate 20 MG TABLET 1 TAB PO DAILY MENTAL HEALTH (Reported) Fluticasone/Salmeterol (Advair 250-50 Diskus) 250 MCG-50 MCG/DOSE BLST.W.DEV 1 PUF INH BID BREATHING PROBLEMS (Reported) Furosemide (Lasix) 20 MG TABLET 1 TAB PO BID EDEMA (Reported) Ibuprofen 800 MG TABLET 1 TAB PO DAILY PAIN (Reported) Pantoprazole Sodium (Protonix) 20 MG TABLET.DR 1 TAB PO BID GI (Reported) Prednisone 10 MG TABLET 1 TAB PO AD COPD DAY1/DAY2 FOUR TABS DAY3/DAY4 THREE TABS DAY5/DAY6 TWO TABS DAY 7 ONE TAB Prednisone 10 MG TABLET 0 PO TAPER COPD Take 4 tablets daily from 09/05-09/06 Take 3 tablets daily from 09/07-09/09 Take 2 tablets daily from 09/10-09/12 Take 1 tablet daily from 09/13-09/15 Rosuvastatin Calcium (Crestor) 10 MG TABLET 1 TAB PO DAILY HPL (Reported) Solifenacin Succinate (Vesicare) 5 MG TABLET 1 TAB PO DAILY BLADDER HEALTH ( Reported) Triage Note: PER PT WAS DANCING AND SAT DOWN PLACED HER SAT PROBE ON FINGER AND NOTED HR 73, PT SAW DR KING TODAY D/T RECENT HX OF LOC AND IS SCHEDULED FOR HOLTER MONITOR ON SATURDAY Triage Nurses Notes Reviewed? yes Onset: Abrupt Duration: day(s):, constant, continues in ED Timing: recent history Injury Environment: home No Modifying Factors: none HPI: 46-year-old female comes into emergency room with multiple complaints. Patient reports that she's been feeling dizzy and lightheaded weak and tired. She had a couple of blackout episodes on Saturday of this week. She saw Dr. King today for an evaluation is supposed to get a Holter monitor on Saturday. She's been reporting headaches. Subjective chills. Denies any vomiting. Denies any chest pain. Denies any shortness of breath below her normal baseline. Patient reports that tonight at home her heart rate was in the 70s which is abnormal for her and she was concerned. (IRINEO MORTON) Past History Travel History Traveled to [place] past 21 day No Medical History Any Pertinent Medical History? 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 No (IRINEO MORTON) Review of Systems Review of Systems Constitutional: Reports: see HPI. EENTM: Reports: see HPI. Respiratory: Reports: see HPI. Cardiovascular: Reports: no symptoms. GI: Reports: no symptoms. Genitourinary: Reports: no symptoms. Musculoskeletal: Reports: no symptoms. Skin: Reports: no symptoms. Neurological/Psychological: Reports: no symptoms. Hematologic/Endocrine: Reports: no symptoms. Immunologic/Allergic: Reports: no symptoms. All Other Systems: Reviewed and Negative (IRINEO MORTON) Physical Exam Physical Exam General Appearance: well developed/nourished, alert, awake Head: atraumatic Eyes: Bilateral: normal appearance. Ears, Nose, Throat: normal ENT inspection Neck: normal inspection Respiratory: no respiratory distress Cardiovascular: regular rate/rhythm Gastrointestinal: soft, non-tender Back: normal range of motion Extremities: normal capillary refill Neurologic/Psych: awake, alert, oriented x 3 Skin: intact, normal color (IRINEO MORTON) Core Measures ACS in differential dx? No CVA/TIA Diagnosis: No Severe Sepsis Present: No Septic Shock Present: No (MACHO MARTINES,HALLIE Santos) Progress Differential Diagnoses considered the following diagnoses in my evaluation of the patient: CVA, WI, pneumonia, UTI, dehydration, CHF, electrolyte imbalance, vertigo, cardiac arrhythmia, sepsis, Plan of Care: Orders Procedure Date/time Status TROPONIN LEVEL 10/20 0300 Complete EKG 10/20 0300 Active Telemetry/Senior Python Developer 10/19 232 Active TROPONIN LEVEL 10/19 232 Complete LIPASE 10/19 232 Complete COMPREHENSIVE METABOLIC PANEL 10/19 232 Complete CBC WITHOUT DIFFERENTIAL 10/19 2324 Complete B-TYPE NATRIURETIC PEP (BNP) 10/19 2324 Complete AMYLASE 10/19 2324 Complete EKG 10/19 2324 Active Laboratory Tests 10/20/16 0255: Troponin I < 0.01 10/19/16 2359: Anion Gap 7, Estimated GFR > 60, BUN/Creatinine Ratio 35.7 H, Glucose 90, Calcium 9.1, Total Bilirubin 0.3, AST 19, ALT 32, Alkaline Phosphatase 73, Troponin I < 0.01, Pzo-J-Ldfnpygyrxt Pept 36.5, Total Protein 6.3, Albumin 3.7, Globulin 2.6, Albumin/Globulin Ratio 1.4, Amylase 45, Lipase 151, CBC w Diff NO MAN DIFF REQ, RBC 3.69 L, MCV 92.7, MCH 31.4 H, RDW 14.1, MPV 7.6, Gran % 58.1 , Lymphocytes % 29.4, Monocytes % 10.2 H, Eosinophils % 1.6, Basophils % 0.7, Absolute Granulocytes 5.0, Absolute Lymphocytes 2.5, Absolute Monocytes 0.9 H, Absolute Eosinophils 0.1, Absolute Basophils 0.1, PUBS MCHC 33.8 10/19/162324: Urine Color Cancelled, Urine Clarity Cancelled, Urine pH Cancelled, Ur Specific [place] Cancelled, Urine Protein Cancelled, Urine Ketones Cancelled, Urine Nitrite Cancelled, Urine Bilirubin Cancelled, Urine Urobilinogen Cancelled, Ur Leukocyte Esterase Cancelled, Ur Microscopic Cancelled, Urine Hemoglobin Cancelled, Urine Glucose Cancelled Diagnostic Imaging: Viewed by Me: Radiology Read, CT Scan. Discussed w/RAD: Radiology Read, CT Scan. Radiology Impression: SERVICE DATE: 10/20/16 EXAM TYPE: CAT - CT HEAD WO IV CONTRAST EXAMINATION: CT HEAD WITHOUT CONTRAST CLINICAL INFORMATION: Headache , syncope COMPARISON: 04/08/2016 TECHNIQUE: Contiguous axial imaging was performed from the skull base to vertex without intravenous administration of contrast. DLP: 633.88 mGy-cm FINDINGS: There is no evidence of acute intracranial hemorrhage or territorial infarction. No abnormal mass effect or midline shift is seen. Norman to white matter differentiation is well preserved. No extra-axial fluid collections are identified. The ventricles are normal in size. There is no abnormal attenuation within the brain parenchyma. The osseous structures and soft tissues are normal. The mastoid air cells and visualized portions of the paranasal sinuses are well aerated. IMPRESSION: No acute intracranial pathology., SERVICE DATE: 10/19/16 EXAM TYPE: RAD - XRY- PORTABLE CHEST XRAY EXAMINATION: XR PORTABLE CHEST CLINICAL INFORMATION: Chest pain COMPARISON: 09/21/2016 TECHNIQUE: Portable frontal view of the chest was obtained. FINDINGS: The lungs are hypoinflated, which significantly limits evaluation in combination with patient body habitus. Hazy opacification in the mid to basilar left lung is difficult to entirely exclude in this setting. No gross evidence of pneumothorax, though sensitivity is limited given technique. The cardiomediastinal silhouette is prominent, likely accentuated to some degree by low lung volumes. No acute osseous findings are seen. IMPRESSION: Significantly limited evaluation secondary to low lung volumes and patient body habitus. Component of hazy opacity in the mid to basilar left lung is difficult to entirely exclude. DICTATED BY: GEORGETTE HILARIO MD DATE/TIME DICTATED:10/20/16122 CANVAS GOODS SUPERVISOR:TALIA Initial ED EKG: normal intervals, normal p-waves, normal sinus rhythm, rate (93) (GUNNAR TEE,IRINEO) Departure Departure Disposition: HOME OR SELF CARE Condition: Stable Clinical Impression Primary Impression: Headache Secondary Impressions: Syncope Referrals: ILIANA MARTINES,CHAUNCEY Roy (PCP/Family) Additional Instructions: Follow-up with your primary care doctor. Return if any concerns worsening symptoms. Please go over all results of today's visit with your primary care doctor. Contact your primary care doctor to let them know you were here in the emergency room. There may be nonspecific findings which may not be related to your visit today here in the emergency room but may require further evaluation and chronic monitoring by your primary care doctor. If you had a laceration today the chance of foreign body always remains. You should follow-up with your primary care doctor for recheck in 3-5 days for a wound check. If you had an x-ray done there is a chance that a fracture could have been missed on initial read and you should follow-up with your primary care doctor for repeat x-rays if symptoms persist. If your blood pressure was elevated here in the emergency room please have rechecked by her primary care doctor within the next 48 hours by your primary care doctor. If you were prescribed a narcotic here in the emergency room or any type of controlled substances you're not allowed to drive while taking this medication or operate any type of heavy machinery. Narcotics can make you feel lightheaded dizziness nausea and can cause constipation. You may need to vegetable picker a stool softener. Thank you for choosing [facility] emergency room. Please return to the emergency room immediately if you have any other concerns worsening of symptoms. Departure Forms: Customer Survey General Discharge Information (IRINEO MORTON) Departure Comments 10/20/16, 1:32am... .discussed with dr. king who evaluated her in the office yesterday (10/19/16).... will check 2nd troponin and if negative, pt safe for discharge. 10/20/16, 3:52am... trop #2 is negative... pt safe for discharge and will follow up with dr. king. PA/TEACHER VOCATIONAL TRAINING Co-Sign Statement Statement: ED Attending supervision documentation- [x] I saw and evaluated the patient. I have also reviewed all the pertinent lab results and diagnostic results. I agree with the findings and the plan of care as documented in the PA's/TEACHER VOCATIONAL TRAINING's documentation. discussed at length several times with patient. [] I have reviewed the ED Record and agree with the PA's/TEACHER VOCATIONAL TRAINING's documentation. [] Additions or exceptions (if any) to the PAs/TEACHER VOCATIONAL TRAINING's note and plan are summarized below: [] (MACHO MARTINES,HALLIE Santos) Critical Care Note Critical Care Note Critical Care Time: non-applicable (MACHO MARTINES,HALLIE Santos)
[2016-10-20 00:18] LABS: ABSOLUTE BASOPHIL COUNT 0.1 /CUMM (0.0-0.2); ABSOLUTE EOSINOPHIL COUNT 0.1 /CUMM (0.0-0.7); ABSOLUTE LYMPH COUNT 2.5 /CUMM (1.2-3.4); ABSOLUTE MONOCYTE COUNT 0.9 /CUMM (0.10-0.60); BASOPHIL % 0.7 % (0.0-2.0); EOSINOPHIL % 1.6 % (0-5); GRANULOCYTE % 58.1 % (42.2-75.2); HEMATOCRIT 34.2 % (37-47); MEAN CORPUSCULAR HGB 31.4 PG (27.0-31.0); MEAN CORPUSCULAR HGB CONC 33.8 G/DL (33.0-37.0); MEAN CORPUSCULAR VOLUME 92.7 FL (81.0-99.0); MEAN PLATELET VOLUME 7.6 FL (7.4-10.4); PLATELET COUNT 273 /CUMM (130-400); RBC DISTRIBUTION WIDTH 14.1 % (11.5-14.5); RED BLOOD CELL CT 3.69 /CUMM (4.20-5.40); WHITE BLOOD CELL COUNT 8.6 /CUMM (4.8-10.8)
--- NOTE | 2016-10-20 01:30 | RADIOLOGY REPORT ---
EXAMINATION: XR PORTABLE CHEST CLINICAL INFORMATION: Chest pain COMPARISON: 09/21/2016 TECHNIQUE: Portable frontal view of the chest was obtained. FINDINGS: The lungs are hypoinflated, which significantly limits evaluation in combination with patient body habitus. Hazy opacification in the mid to basilar left lung is difficult to entirely exclude in this setting. No gross evidence of pneumothorax, though sensitivity is limited given technique. The cardiomediastinal silhouette is prominent, likely accentuated to some degree by low lung volumes. No acute osseous findings are seen. IMPRESSION: Significantly limited evaluation secondary to low lung volumes and patient body habitus. Component of hazy opacity in the mid to basilar left lung is difficult to entirely exclude.
--- NOTE | 2016-10-20 01:57 | CT SCAN REPORT ---
EXAMINATION: CT HEAD WITHOUT CONTRAST CLINICAL INFORMATION: Headache, syncope COMPARISON: 04/08/2016 TECHNIQUE: Contiguous axial imaging was performed from the skull base to vertex without intravenous administration of contrast. DLP: 633.88 mGy-cm FINDINGS: There is no evidence of acute intracranial hemorrhage or territorial infarction. No abnormal mass effect or midline shift is seen. Norman to white matter differentiation is well preserved. No extra-axial fluid collections are identified. The ventricles are normal in size. There is no abnormal attenuation within the brain parenchyma. The osseous structures and soft tissues are normal. The mastoid air cells and visualized portions of the paranasal sinuses are well aerated. IMPRESSION: No acute intracranial pathology.
[2016-10-20 03:09] VITALS: BP 120/58
== END 2016-10-20 04:46 ==
LOC: ERH 23:01
PROVIDERS: Physician Assistant Medical
DX: R55 Syncope and collapse (principal); R51 Headache
CPT/HCPCS: 93005; 93010

== ENCOUNTER 2016-11-26 20:42 | Inpatient (IN) | payer OTHER ==
[~2016-11-26] VITALS: Ht 162.6 cm; Wt 132.6 kg
[~2016-11-26 20:42] MED LIST changes: +PERCOCET 5-3251 EACH PO
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
--- NOTE | 2016-11-26 22:21 | NUR ---
PT'S BLOOD DRAWN AT 2207 1LAV,1BLU,1SST AND SENT TO LAB
[2016-11-26 22:27] LABS: ABSOLUTE BASOPHIL COUNT 0 /CUMM (0.0-0.2); ABSOLUTE EOSINOPHIL COUNT 0.1 /CUMM (0.0-0.7); ABSOLUTE GRANULOCYTE CT 5.2 /CUMM (1.4-6.5); ABSOLUTE LYMPH COUNT 2.5 /CUMM (1.2-3.4); ABSOLUTE MONOCYTE COUNT 0.8 /CUMM (0.10-0.60); BASOPHIL % 0.4 % (0.0-2.0); EOSINOPHIL % 1.6 % (0-5); MEAN CORPUSCULAR HGB 31.4 PG (27.0-31.0); MEAN CORPUSCULAR HGB CONC 33.8 G/DL (33.0-37.0); MEAN CORPUSCULAR VOLUME 93.1 FL (81.0-99.0); PLATELET COUNT 268 /CUMM (130-400); RBC DISTRIBUTION WIDTH 13.8 % (11.5-14.5); RED BLOOD CELL CT 3.97 /CUMM (4.20-5.40); WHITE BLOOD CELL COUNT 8.7 /CUMM (4.8-10.8)
--- NOTE | 2016-11-26 23:01 | NUR ---
ASSUMED CARE OF PT PER MARBIN THACKER. PT LAYING ON STRETCHER WITH RR, PT OFFERS NO COMPLAINTS AT THIS TIME.
--- NOTE | 2016-11-26 23:01 | NUR ---
BIBA FOR C/O DEPRESSION AFTER SPEAKING W/ MOBILE CRISIS. MOBILE CRISIS STATES THAT PATIENT IS HAVING INCREASED SI ALTHOUGH PATIENT IS CURRENTLY DENYING SI. MOBILE CRISIS FEELS PATIENT NEEDS INPATIENT TX FOR MED CHANGES AND EVALUATION. WRITTEN BY MARBIN THACKER
--- NOTE | 2016-11-26 23:20 | NUR ---
DR SHAW INFORMED OF PTS MANUAL BP, PT DENIES ON BP MEDICATION OR ANY PAIN. DR SHAW AWARE AND THIS RN WILL CONTINUE TO MONITOR
--- NOTE | 2016-11-26 23:53 | NUR ---
PT MOVED TO RM 7, RT CALLED FOR CPAP MACHINE.
--- NOTE | 2016-11-27 00:10 | NUR ---
RT IN RM FOR CPAP
--- NOTE | 2016-11-27 01:42 | NUR ---
PT SLEEPING WITH RR, WILL CONTINUE TO MONITOR. BILATERAL CHEST RISE AND FALL NOTED
--- NOTE | 2016-11-27 03:22 | NUR ---
PT SLEEPING WITH RR, BILATERAL CHEST RISE ANDFALL NOTED. VSS, WILL COTINUE TO MONITOR
--- NOTE | 2016-11-27 05:01 | NUR ---
PT AWAKE AND TOOK OFF CPAP MACHINE, O2 PLACED BACK ON PT. PT SITTING UP WITH RR, WATCHING THE NEWS.
--- NOTE | 2016-11-27 06:23 | NUR ---
PT AWAKE AND ASKING FOR CELL PHONE OUT OF [facility]AFE TO CALL FRIEND, THIS RN SUGGESTED THAT PT WAIT FOR CRISIS TO EVALUATE PT SO THIS WAY PT CAN INFORM FRIEND OF CORRECT INFORMATION. PT AGREED AND IS AWAITING BREAKFAST
--- NOTE | 2016-11-27 07:42 | ED PSYCH CRISIS CONSULTATION ---
Crisis Consult Basic Assessment Date of Consult: 11/27/16 Responsible Person/Accompanied By: self Insurance Authorization: Insurance #1: Insurance name: [employer] Phone number: Policy number: [id number] Group number: [id number] Authorization number: ED Provider: Patient's ED Provider: LIOR MARTINES,MAYO KAMINSKI Primary Care Physician: Patient's PCP: CHAUNCEY BARRIENTOS MD PCP's Current Psychiatrist: Dr. Rogers [facility] Chief Complaint: Psychiatric Related Complaint Patient's Quote: "i'm so depressed. It just keeps getting worse." Present Illness: Pt is a 46yo female who was brought to the ED on a Mobile Crisis Emergency Certificate. Pt called mobile [employer] due increasing depression and suicidal thoughts. Pt presents as tearful and depressed. She reports that she has not eaten for a few days and has not gotten out of bed. she sleeps for most of the day. She expresses feelings of hopelessness and helplessness. she has not been able to tend to her ADLs or the up keep of her home. She denies any current suicidal plan, but expresses that she is so depressed she just does not want wake up and thinks she will in her sleep. Pt says she does have a previous suicide attempt by OD in 1996. She expresses that she is seeking help because she does not want to get to that point again. Pt also reports that she is hearing voices calling her name and also calling her derogatory names. pt has a hx of schizoaffective d/o and is currently in out pt tx at [facility]. She also has previous admits to [facility]. She also has a visiting nurse. Pt uses oxygen to assist with breathing as she has COPD and emphysema. Additionally, she sleeps with a CPAP. Pt expresses possible triggers to her increase in her depression is dealing with the ongoing health problems, the upcoming anniversary of the of her mom and close friend in January. Additionally, pt thinks she may have started menopause and that this is contributing to her depression. Pt is requesting an admission to [facility] to treat her depression. Crisis called Gracia at [facility] and left a for collateral. Crisis also left pt's best friend Estela Winchester a vm at pt's request. Case reviewed with Dr. Castro of psychiatry and pt meets criteria for inpt psych tx. Patient's Address: [address] [place] [address] Other Phone Number: Who Do You Live With? Patient/Self Family/Informants Interviewed: message left at [facility] and with pt's friend Allergies - Coded Allergies: amoxicillin (From Augmentin) (Intermediate, SICK - VOMITING 02/03/16) clavulanic acid (From Augmentin) (Intermediate, SICK - VOMITING 02/03/16) lithium (Intermediate, SICK - NAUSEA, DIARRHEA, VOMITING 02/03/16) Sulfa (Sulfonamide Antibiotics) (BAD RASH ALL OVER BODY 02/03/16) erythromycin base (R/O ERYTHROMYCIN (PER DR. Thomas KULKARNI MD) 02/03/16) haloperidol (From Haldol) (PER PT GETS OUT OF IT, DOESNT MOVE 02/03/16) morphine (PER PT DIDNT LIKE THE WAY IT MADE HER FEEL 02/03/16) Current Medications - Scheduled Medications Aripiprazole (Abilify) 10 MG TABLET 1 TAB PO DAILY depression (Reported) Entered as Reported by DARLEEN ZAFAR on 06/23/15 1859 Last Taken: 11/26/16 0800 Clonazepam 1 MG TABLET 1 TAB PO DAILY PTSD (Reported) Entered as Reported by DARLEEN ZAFAR on 12/17/14 1526 Last Taken: 11/26/16 0800 Clonazepam 0.5 MG TABLET 1 TAB PO QPM PTSD (Reported) Entered as Reported by GARLAND STANLEY on 05/14/16 1249 Last Taken: 11/26/16 2200 Clozapine (Clozaril) 25 MG TABLET 1 TAB PO QPM MENTAL HEALTH #28 (Reported) Entered as Reported by GARLAND STANLEY on 05/14/16 1251 Clozapine (Clozaril) 100 MG TABLET 1 TAB PO QPM MENTAL HEALTH (Reported) Entered as Reported by DARLEEN ZAFAR on 07/26/15 2231 Last Taken: 11/26/16 2200 Cyanocobalamin (Vitamin B-12) 1,000 MCG TABLET 1 TAB PO DAILY SUPPLEMENT ( Reported) Entered as Reported by DARLEEN ZAFAR on 02/15/14 2142 Last Taken: 11/26/16 0800 Divalproex Sodium (Depakote ER) 500 MG TAB.ER.24H 2 TAB PO DAILY MENTAL HEALTH (Reported) Entered as Reported by M[facility] DEMPSEY [facility] on 06/11/15 0224 Last Taken: 1000 MG on 11/26/16 0800 Divalproex Sodium (Depakote ER) 500 MG TAB.ER.24H 3 TAB PO QPM MENTAL HEALTH (Reported) Entered as Reported by DARLEEN ZAFAR on 06/23/15 1837 Last Taken: 1500 MG on 11/26/16 2200 Escitalopram Oxalate 20 MG TABLET 1 TAB PO DAILY MENTAL HEALTH #30 (Reported) Entered as Reported by GARLAND STANLEY on 05/14/16 1252 Last Taken: 11/26/16 2200 Fluticasone/Salmeterol (Advair 250-50 Diskus) 250 MCG-50 MCG/DOSE BLST.W.DEV 1 PUF INH BID BREATHING PROBLEMS #60 (Reported) Entered as Reported by GARLAND STANLEY on 07/25/16 1419 Last Taken: 11/26/16 2200 Furosemide (Lasix) 20 MG TABLET 1 TAB PO BID EDEMA (Reported) Entered as Reported by DARLEEN ZAFAR on 06/23/15 1921 Last Taken: 11/26/16 0800 Ibuprofen 800 MG TABLET 1 TAB PO DAILY PAIN #90 (Reported) Entered as Reported by LENIN MCCLURE on 03/28/162002 Pantoprazole Sodium (Protonix) 20 MG TABLET.DR 1 TAB PO BID GI (Reported) Entered as Reported by DARLEEN ZAFAR on 12/17/14 1531 Last Taken: 11/26/16 0800 Rosuvastatin Calcium (Crestor) 10 MG TABLET 1 TAB PO DAILY HPL #30 (Reported) Entered as Reported by LENIN MCCLURE on 03/28/162002 Last Taken: 11/26/16 1700 Solifenacin Succinate (Vesicare) 5 MG TABLET 1 TAB PO DAILY BLADDER HEALTH ( Reported) Entered as Reported by DARLEEN ZAFAR on 12/17/14 1535 Last Taken: 11/26/16 0800 Scheduled PRN Medications Albuterol Sulfate (Proair Hfa) 90 MCG HFA.AER.AD 2 PUF INH Q4-6 PRN PRN COPD (Reported) Entered as Reported by MARILEE JOHNSON on 11/01/13 2350 Last Taken: 11/26/16 1800 Albuterol Sulfate 1.25 MG/3 ML VIAL.NEB 1 Vial INH/SOTO Q4-6 PRN COPD #150 ML Prescribed by CORTNEY CHONG on 09/21/16 Last Taken: 11/26/16 1800 Benzonatate (Tessalon Perle) 100 MG CAPSULE 1 CAP PO TID PRN cough #30 CAP Prescribed by IBETH SNIDER on 07/25/16 Oxycodone HCl/Acetaminophen (Oxycodone-Acetaminophen 5-325) 5 MG-325 MG TABLET 1 TAB PO BIDP PRN PAIN #40 (Reported) Entered as Reported by GARLAND STANLEY on 11/19/16 0937 Oxycodone HCl/Acetaminophen (Percocet 5-325 MG Tablet) 5 MG-325 MG TABLET 1 TAB PO BID PRN pain #10 TAB Prescribed by MELANIE THOMAS on 11/19/16 Durable Medical Equipment Oxygen INHA #2 L INH hypoxia #2 INHA Prescribed by YAIR ROCA MD on 06/20/15 Laboratory Results: Laboratory Tests 11/26/16 2232: Urine Opiates Screen < 100.00, Methadone Screen 75, Barbiturate Screen < 60, Ur Phencyclidine Scrn < 6.00, Amphetamines Screen < 100, U Benzodiazepines Scrn 117 , Urine Cocaine Screen < 50, Urine Cannabis Screen < 5.00 11/26/16 2207: Anion Gap 12, Estimated GFR > 60, BUN/Creatinine Ratio 25.0, Glucose 107 H, Calcium 9.4, Total Bilirubin 0.3, AST 17, ALT 26, Alkaline Phosphatase 68, Total Protein 6.7, Albumin 4.1, Globulin 2.6, Albumin/Globulin Ratio 1.6, Total Beta HCG NEGATIVE, CBC w Diff NO MAN DIFF REQ, RBC 3.97 L, MCV 93.1, MCH 31.4 H, RDW 13.8, MPV 8.0, Gran % 60.0, Lymphocytes % 28.3, Monocytes % 9.7 H, Eosinophils % 1.6, Basophils % 0.4, Absolute Granulocytes 5.2, Absolute Lymphocytes 2.5, Absolute Monocytes 0.8 H, Absolute Eosinophils 0.1, Absolute Basophils 0, PUBS MCHC 33.8, Serum Alcohol < 10.0 Past History Past Medical History Neurological: NONE EENT: allergies Cardiovascular: NONE Respiratory: asthma, bronchitis, COPD, obstructive sleep apnea Gastrointestinal: GERD, irritable bowel syndrome Hepatic: NONE Renal: NONE Musculoskeletal: chronic back pain, falls, sciatica Psychiatric: anxiety, bipolar disease, chronic pain disorder, depression, schizo affective disorder, PTSD Endocrine: obesity Blood Disorders: NONE Cancer(s): NONE 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 Pt is compliant and is engaged in outpatient psychiatric treatment. Pt receives daily medication administration from a visiting nursing service. Has supportive friend. Physical Limitations (Interventions): Pt. is oxygen dependent and has back pain managed with medications. Pt. is disabled and unable to work. Psychiatric Treatment History Psych Treatment Psychiatric Treatment Yes Inpatient Treatment Yes Outpatient Treatment No Location of Treatment [facility] Reason for Treatment Schizoaffective Dates of Treatment multiple Response to Treatment variable Diagnosis by History: Schizoaffective disorder Bipolar PTSD (childhood trauma) Hx suicide attempt - OD on depakote 20 years ago Alcohol dependence, in full remission (18yrs) Cocaine dependence, in full remission (18yrs) Substance Use/Abuse History Drug Use/Abuse Substances Used/Abused No Substance Abuse Treatment Substance Abuse Treatment Past Substance Abuse [place] No Inpatient Treatment No Outpatient Treatment No Current Mental Status Mental Status Orientation: Person, Place, Situation Affect: Depressed, Hopeless, Sad Speech: WNL Neuro-vegetative: Anhedonia, Appetite Decreased, Concentration Poor, Energy Decreased, Helpless, Hypersomnia, Loss of Interest Appearance Appearance- Dress/Hygiene: unkempt, tearful Behaviors Thought Process: WNL Thought Content: Auditory Hallucinations Memory: WNL Insight: WNL SI/HI Risk Assessment Past Suicidal Ideation/Attempts Yes Current Suicidal Ideation/Att Yes Past Homicidal Ideation/Att: No Current Homicidal Ideation/Attempts No Degree of Intent: Thoughts Danger To: Self Risk Factors: chronic/serious med cond., high anxiety/distress, history of suicide atmpts, SA/MH hospitalized, lives alone Lethality Ratin PTSD Checklist PTSD Done? patient declined ED Management Sitter: Yes Restraints: No DSM5/PS Stressors/Medical Prob Diagnosis' (DSM 5, Stressors, Medical): F25.9 Schizoaffective Current GAF: 25 Departure Disposition Psych Medical Clearance Date: 11/27/16 Medically Cleared at: 729 Time Started: 729 Time Ended: 829 Psychiatrist Consulted: Lopez Castro MD Date Disposition Established: 11/27/16 Time Disposition Established: 829 Plan for Disposition - Modality: Inpatient Psychiatry Facility: [facility] Rationale for Disposition: safety and stabilization of sx Type of IP Admission: Voluntary Referrals ILIANA MARTINES,CHAUNCEY Roy (PCP/Family)
--- NOTE | 2016-11-27 07:52 | NUR ---
REFUSING BREAKFAST, STATES SHE DOESNT FEEL LIKE EATING.
--- NOTE | 2016-11-27 07:53 | NUR ---
REAMING MACHINE OPERATOR RIAZ HERE TO EVALUATE.
--- NOTE | 2016-11-27 08:36 | NUR ---
MEDICATED FOR ACK PAIN.
--- NOTE | 2016-11-27 09:16 | NUR ---
REQUESTING AM MEDS AND NEBULIZER TX, LUNGS: BILATERAL EXPIRATORY WHEEZES NOTED.
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
--- NOTE | 2016-11-27 10:30 | NUR ---
AM MEDS GIVEN.
--- NOTE | 2016-11-27 11:40 | Cons- Pulmonary ---
General Information and HPI Consulting Request Date of Consult: 11/27/16 Requested By: ER staff/psych/patient Reason for Consult: copd Source of Information: patient Exam Limitations: no limitations History of Present Illness: 46 year old woman. Quit smoking. Significant coughing persists, no fevers, no chils. Allergies are significant - currently on xyzal. On O2 - can be as low as 70's without oxygen. Exertion as needed and nocturnal. Compliance - August 2016 Usage Days - 100% >4 hours - 100% AHI - 1.2 PAP - CPAP 14 cmH20 Good compliance and control. No signficant leaks. Spirometry performed 08/28/2016 Stable from respiratory perspective. On Lasix. Follows with Dr. Trinidad. Advair 250/50 BID with rinsing of the mouth. Nebulizer therapy at home. PFT performed February 2015 mild obstructive lung disease with significant bronchodilator response. DLCO is normal. Lung volumes are slightly reduced. This is consistent with a mixed defect restrictive and obstructive. CT chest with almost resolved previous GGO. Admitted to psych for depression. Allergies/Medications Allergies: Coded Allergies: amoxicillin (From Augmentin) (Intermediate, SICK - VOMITING 02/03/16) clavulanic acid (From Augmentin) (Intermediate, SICK - VOMITING 02/03/16) lithium (Intermediate, SICK - NAUSEA, DIARRHEA, VOMITING 02/03/16) Sulfa (Sulfonamide Antibiotics) (BAD RASH ALL OVER BODY 02/03/16) erythromycin base (R/O ERYTHROMYCIN (PER DR. Thomas KULKARNI MD) 02/03/16) haloperidol (From Haldol) (PER PT GETS OUT OF IT, DOESNT MOVE 02/03/16) morphine (PER PT DIDNT LIKE THE WAY IT MADE HER FEEL 02/03/16) Home Med List: Albuterol Sulfate (Proair Hfa) 90 MCG HFA.AER.AD 2 PUF INH Q4-6 PRN PRN COPD (Reported) Albuterol Sulfate 1.25 MG/3 ML VIAL.NEB 1 Vial INH/SOTO Q4-6 PRN COPD Aripiprazole (Abilify) 10 MG TABLET 1 TAB PO DAILY depression (Reported) Benzonatate (Tessalon Perle) 100 MG CAPSULE 1 CAP PO TID PRN cough Clonazepam 1 MG TABLET 1 TAB PO DAILY PTSD (Reported) Clonazepam 0.5 MG TABLET 1 TAB PO QPM PTSD (Reported) Clozapine (Clozaril) 25 MG TABLET 1 TAB PO QPM MENTAL HEALTH (Reported) Clozapine (Clozaril) 100 MG TABLET 1 TAB PO QPM MENTAL HEALTH (Reported) Cyanocobalamin (Vitamin B-12) 1,000 MCG TABLET 1 TAB PO DAILY SUPPLEMENT ( Reported) Divalproex Sodium (Depakote ER) 500 MG TAB.ER.24H 2 TAB PO DAILY MENTAL HEALTH (Reported) Divalproex Sodium (Depakote ER) 500 MG TAB.ER.24H 3 TAB PO QPM MENTAL HEALTH (Reported) Escitalopram Oxalate 20 MG TABLET 1 TAB PO DAILY MENTAL HEALTH (Reported) Fluticasone/Salmeterol (Advair 250-50 Diskus) 250 MCG-50 MCG/DOSE BLST.W.DEV 1 PUF INH BID BREATHING PROBLEMS (Reported) Furosemide (Lasix) 20 MG TABLET 1 TAB PO BID EDEMA (Reported) Ibuprofen 800 MG TABLET 1 TAB PO DAILY PAIN (Reported) Oxycodone HCl/Acetaminophen (Oxycodone-Acetaminophen 5-325) 5 MG-325 MG TABLET 1 TAB PO BIDP PRN PAIN (Reported) Oxycodone HCl/Acetaminophen (Percocet 5-325 MG Tablet) 5 MG-325 MG TABLET 1 TAB PO BID PRN pain Pantoprazole Sodium (Protonix) 20 MG TABLET.DR 1 TAB PO BID GI (Reported) Rosuvastatin Calcium (Crestor) 10 MG TABLET 1 TAB PO DAILY HPL (Reported) Solifenacin Succinate (Vesicare) 5 MG TABLET 1 TAB PO DAILY BLADDER HEALTH ( Reported) Current Medications: Current Medications Sig/Sandeep Start time Last Medication Dose Route Stop Time Status Admin Acetaminophen 650 MG Q6P PRN 11/27 1000 UNVr PO Al Hydroxide/Mg 30 ML Q4-6 PRN PRN 11/27 1000 UNVr Hydroxide PO Albuterol Sulfate 3 ML Q4H PRN 11/27 0930 DC INH Albuterol Sulfate 3 ML Q4H PRN 11/27 0930 AC 11/27 INH 0926 Albuterol Sulfate 2 PUF Q4-6 PRN PRN 11/27 0930 UNVr INH Aripiprazole 10 MG DAILY 11/27 1000 UNVr 11/27 PO 1042 Atorvastatin Calcium 40 MG 1700 11/27 1700 UNVr PO Clonazepam 0.5 MG QPM 11/27 2200 UNVr PO 12/04 2159 Clonazepam 0 .STK-MED ONE 11/27 1033 DC PO Clonazepam 1 MG DAILY 11/27 1000 UNVr 11/27 PO 12/04 0959 1042 Clozapine 125 MG QPM 11/27 2199 UNVr PO Divalproex Sodium 1,500 MG AT BEDTIME 11/27 2200 UNVr PO Divalproex Sodium 1,000 MG ONCE ONE 11/27 1115 UNVr PO 11/27 1116 Escitalopram Oxalate 20 MG DAILY 11/27 1000 UNVr 11/27 PO 1042 Furosemide 20 MG BID 11/27 1000 UNVr 11/27 PO 1042 Gabapentin 300 MG Q6P PRN 11/27 1000 UNVr PO Ibuprofen 0 .STK-MED ONE 11/27 0840 DC PO Ibuprofen 600 MG ONCE ONE 11/27 0830 DC 11/27 PO 11/27 0831 0835 Magnesium Hydroxide 30 ML AT BEDTIME PRN 11/27 1000 UNVr PO Montelukast Sodium 10 MG AT BEDTIME 11/27 2200 UNVr PO Nicotine 21 MG DAILY 11/27 1000 UNVr TOP Omeprazole 20 MG DAILY AC 11/27 0941 UNVr 11/27 PO 1042 Oxybutynin Chloride 5 MG BID 11/27 1000 UNVr 11/27 PO 1042 Review of Systems Comments 18 point review of systems performed. Pertinent positive and negative findings are in the HPI, otherwise negative. 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 Ambulation: cane IADLs Independent: shopping, housework, finances, food prep, telephone, transportation , medication admin. Exam & Diagnostic Data Last 24 Hrs of Vital Signs/I&O Vital Signs Date Time Temp Pulse Resp B/P B/P Pulse O2 O2 Flow FiO2 Mean Ox Delivery Rate 11/27 0927 97 Nasal 3.0L Cannula 11/27 0628 98.3 83 18 136/63 96 Nasal 3.0L Cannula 11/27 0544 65 96 11/27 0017 84 98 11/27 0005 97.1 85 20 135/67 96 Nasal 3.0L Cannula 11/26 2146 97.3 94 20 131/73 96 Nasal 3.0L Cannula Intake & Output 11/27 1600 11/27 0800 11/27 0000 Intake Total Output Total Balance Patient 290 lb Weight Weight Standing Scale Measurement Method Physical Exam Other Physical Findings: Gen - alert and awake HEENT - NCAT CVS - S1, S2, no murmurs, rubs or gallops Lungs - rare rhonchi Abdomen - soft, non-tender, bs+ Ext - no edema, no cyanosis Last 48 Hrs of Labs/Gianluca: Laboratory Tests 11/26/162: Urine Opiates Screen < 100.00, Methadone Screen 75, Barbiturate Screen < 60, Ur Phencyclidine Scrn < 6.00, Amphetamines Screen < 100, U Benzodiazepines Scrn 117 , Urine Cocaine Screen < 50, Urine Cannabis Screen < 5.00 11/26/167: Anion Gap 12, Estimated GFR > 60, BUN/Creatinine Ratio 25.0, Glucose 107 H, Hemoglobin A1c Pending, Calcium 9.4, Total Bilirubin 0.3, AST 17, ALT 26, Alkaline Phosphatase 68, Total Protein 6.7, Albumin 4.1, Globulin 2.6, Albumin/ Globulin Ratio 1.6, TSH &T3 &Free T4 Intrp 3.030, Total Beta HCG NEGATIVE, CBC w Diff NO MAN DIFF REQ, RBC 3.97 L, MCV 93.1, MCH 31.4 H, RDW 13.8, MPV 8.0, Gran % 60.0, Lymphocytes % 28.3, Monocytes % 9.7 H, Eosinophils % 1.6, Basophils % 0.4, Absolute Granulocytes 5.2, Absolute Lymphocytes 2.5, Absolute Monocytes 0.8 H, Absolute Eosinophils 0.1, Absolute Basophils 0, PUBS MCHC 33.8 , Valproic Acid 99.2, Serum Alcohol < 10.0 Assessment/Plan Impression/Plan: 46 year old woman. Quit smoking. Significant coughing persists, no fevers, no chils. Allergies are significant - currently on xyzal. On O2 - can be as low as 70's without oxygen. Exertion as needed and nocturnal. Compliance - August 2016 Usage Days - 100% >4 hours - 100% AHI - 1.2 PAP - CPAP 14 cmH20 Good compliance and control. No signficant leaks. Spirometry performed 08/28/2016 Stable from respiratory perspective. On Lasix. Follows with Dr. Trinidad. Advair 250/50 BID with rinsing of the mouth. Nebulizer therapy at home. PFT performed February 2015 mild obstructive lung disease with significant bronchodilator response. DLCO is normal. Lung volumes are slightly reduced. This is consistent with a mixed defect restrictive and obstructive. CT chest with almost resolved previous GGO. Admitted to psych for depression. Plan -cont advair - can bring from home -trc/nebs -advise to bring own cpap from home -if unable pressure is [id number] -f/u in office -call with any questions Consult Acknowledgment - Thank you for your consult request.
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
[2016-11-27] MEDS ORDERED: ASPIRIN EC325 M2 PO (12:09)
[2016-11-27] MEDS ORDERED: ALBUTEROL2.5 MG/3 M INH/SOL (12:09)
[2016-11-27] MEDS ORDERED: LASIX40 M1 PO (12:17)
[2016-11-27] MEDS ORDERED: XYZAL5 M1 PO (12:19)
[2016-11-27] MEDS ORDERED: MULTI-DAY VITA1 EACH PO (12:27)
[2016-11-27] MEDS ORDERED: MONTELUKAST SOD10 M1 PO (12:28)
--- NOTE | 2016-11-27 12:32 | NUR ---
OS ON CONTINUOSLY AT 2L. TO BE ADMITTED TO [facility].
--- NOTE | 2016-11-27 12:34 | NUR ---
LUNCH TRAY ORDERED.
--- NOTE | 2016-11-27 14:34 | NUR ---
ATTEMPTED TO REPOSITION PT FOR COMFORT. PT REFUSED STATING SHE IS COMFORTABLE.
--- NOTE | 2016-11-27 14:45 | NUR ---
FAMILY AT BED SIDE.
--- NOTE | 2016-11-27 15:12 | NUR ---
REPORT RECEIVED; CARE OF PT ASSUMED
--- NOTE | 2016-11-27 16:04 | NUR ---
REPORT TO OVIDIO ZAZUETA ON [facility]
[2016-11-27 17:07] VITALS: BP 159/99
--- NOTE | 2016-11-27 18:06 | NUR ---
Patient got to [facility] from the ED at 1618, A&O X 3, compliant with admission process and procedure. Patient was admitted with Diagnosis of Bipolar with worsening Depression, Anxiety, PTSD with Passive Suicidal Ideation("I wish to sleep and never wake up Again"). Patient continue to endorse AH/VH and at this time very labile/tearful narrating her recent losses/deaths of the close friends and family members.Mood is very unstable swings between stability and lability/Tearful, behavior is compliant and cooperative and her thought process is coherent, organized and lineal. Patient is very complicent with her admission, verbalizes no intention for any risky behavior while in the Hospital.[facility] has been notified for H&P.
[2016-11-27 20:19] VITALS: BP 142/75
--- NOTE | 2016-11-27 23:08 | History & Physical ---
General Information and HPI MD Statement: I have seen and personally examined SAVANAH FOSTER and documented this H&P. The patient is a 46 year old F who presented with a patient stated chief complaint of [medical evaluation]. Source of Information: patient Exam Limitations: no limitations History of Present Illness: 46 Y O F with PMHx COPD on 2 lit NC at home, DEEPAK on CPAP, seasonal allergy, chronic back pain, bipolar/anxiety, IBS, GERD presented in ER for feeling down, flat-line, hopeless for 4 days and subsequently admiited in [facility]. Currently she says she has increased sneezing and mild cough which is nonproductive, denies fever, chills, chest pain, chest tightness or worsening of leg edema. She had mild right upper quadrant abdominal pain 2 weeks back, investigated with right upper quadrant ultrasound, and she was told that she may have passed a gallstone. Currently asymptomatic for abdominal pain. According to her she has been going through "the change" and getting irregular menstruation, was having hot flashes but currently decreased. She was wondering if this depression could be related to her perimenopausal symptoms. 14 point ROS unremarkable. Allergies/Medications Allergies: Coded Allergies: amoxicillin (From Augmentin) (Intermediate, SICK - VOMITING 02/03/16) clavulanic acid (From Augmentin) (Intermediate, SICK - VOMITING 02/03/16) lithium (Intermediate, SICK - NAUSEA, DIARRHEA, VOMITING 02/03/16) Sulfa (Sulfonamide Antibiotics) (BAD RASH ALL OVER BODY 02/03/16) erythromycin base (R/O ERYTHROMYCIN (PER DR. Thomas KULKARNI MD) 02/03/16) haloperidol (From Haldol) (PER PT GETS OUT OF IT, DOESNT MOVE 02/03/16) morphine (PER PT DIDNT LIKE THE WAY IT MADE HER FEEL 02/03/16) Home Med list Albuterol Sulfate (Proair Hfa) 90 MCG HFA.AER.AD 2 PUF INH AD PRN COPD ( Reported) Albuterol Sulfate 2.5 MG/3 ML (0.083 %) VIAL.NEB 1 Vial INH/SOTO BID PRN SOB ( Reported) Aripiprazole (Abilify) 10 MG TABLET 1 TAB PO DAILY depression (Reported) Aspirin (Ecotrin*) 325 MG TABLET.DR 1 TAB PO DAILY HEART/BLOOD (Reported) Benzonatate (Tessalon Perle) 100 MG CAPSULE 1 CAP PO TID PRN cough Clonazepam 1 MG TABLET 1 TAB PO DAILY PTSD (Reported) Clonazepam 0.5 MG TABLET 1 TAB PO QPM PTSD (Reported) Clozapine (Clozaril) 25 MG TABLET 1 TAB PO QPM MENTAL HEALTH (Reported) Clozapine (Clozaril) 100 MG TABLET 1 TAB PO QPM MENTAL HEALTH (Reported) Cyanocobalamin (Vitamin B-12) 1,000 MCG TABLET 1 TAB PO DAILY SUPPLEMENT ( Reported) Divalproex Sodium (Depakote ER) 500 MG TAB.ER.24H 1,000 MG PO DAILY MENTAL HEALTH (Reported) Divalproex Sodium (Depakote ER) 500 MG TAB.ER.24H 1,500 MG PO QPM MENTAL HEALTH (Reported) Escitalopram Oxalate 20 MG TABLET 1 TAB PO DAILY MENTAL HEALTH (Reported) Fluticasone/Salmeterol (Advair 250-50 Diskus) 250 MCG-50 MCG/DOSE BLST.W.DEV 1 PUF INH BID BREATHING PROBLEMS (Reported) Furosemide (Lasix) 40 MG TABLET 1 TAB PO BID DIURETIC (Reported) Ibuprofen 800 MG TABLET 1 TAB PO DAILY PAIN (Reported) Levocetirizine Dihydrochloride (Xyzal) 5 MG TABLET 1 TAB PO DAILY ALLERGIES ( Reported) Montelukast Sodium 10 MG TABLET 1 TAB PO DAILY ALLERGIES/RESP. (Reported) Multivitamin (Multi-Day Vitamins) 1 EACH TABLET 1 TAB PO DAILY SUPPLEMENT ( Reported) Pantoprazole Sodium (Protonix) 20 MG TABLET.DR 1 TAB PO BID GI (Reported) Rosuvastatin Calcium (Crestor) 10 MG TABLET 1 TAB PO DAILY HPL (Reported) Solifenacin Succinate (Vesicare) 5 MG TABLET 1 TAB PO DAILY BLADDER HEALTH ( Reported) Compliance With Home Meds: GOOD Past History Travel History Traveled to [place] past 21 day No Medical History Neurological: NONE EENT: allergies Cardiovascular: NONE Respiratory: asthma, bronchitis, COPD, obstructive sleep apnea Gastrointestinal: GERD, irritable bowel syndrome Hepatic: NONE Renal: NONE Musculoskeletal: chronic back pain, falls, sciatica Psychiatric: anxiety, bipolar disease, chronic pain disorder, depression, schizo affective disorder, PTSD Endocrine: obesity Blood Disorders: NONE Cancer(s): NONE TUB TENDER/Reproductive: NOCTURNAL INCONTINENCE History of MRSA: No History of VRE: No History of CDIFF: No Isolation History: Standard Surgical History Surgical History: laminectomy ECHO Results (as available) Date of last Echo 12/24/14 Past Family/Social History Family History Relations & Conditions if any SISTER FHx: heart failure MOTHER FHx: lung cancer Relation not specified for: *No pertinent family history Psychosocial History Where do you live? Home Services at Home: Home Health Aide, Nursing, Oxygen Primary Language: Thai Smoking Status: Former Smoker (quit 3 montth ) ETOH Use: denies use Illicit Drug Use: denies illicit drug use Functional Ability ADLs Independent: dressing, eating, toileting, bathing. Ambulation: cane IADLs Independent: shopping, housework, finances, food prep, telephone, transportation , medication admin. Sexual History Sexually Active Yes # of partners 1 Sexual Orientation Heterosexual Use of Protection No Employment History Employment Disability Review of Systems Review of Systems Constitutional: Denies: chills, diaphoresis, fever, malaise, weakness, unexplained weight loss. EENTM: Denies: blurred vision, double vision, visual changes, eye pain, eye drainage, eye tearing, icterus, ear discharge, ear pain, ear redness, hearing changes, nasal congestion, epistaxis, nasal pain, throat pain, throat swelling, mouth pain, tooth pain. Cardiovascular: Reports: edema. Denies: chest pain, orthopena, palpitations, peripheral edema, syncope. Respiratory: Reports: cough. Denies: hemoptysis, orthopnea, short of breath, sputum production, stridor, wheezing. GI: Reports: constipation, diarrhea, nausea. Denies: abdominal pain, bloating, distention, bowel incontinence, melena, bloody stool, changes in stool, vomiting , steatorrhea. Genitourinary: Reports: frequency, hesitation, urgency. Denies: discharge, dysuria, hematuria, nocturia, pain. Musculoskeletal: Reports: back pain. Skin: Reports: no symptoms. Neurological/Psychological: Reports: anxiety, depressed, emotional problems. Hematologic/Endocrine: Denies: bruising, bleeding, polyuria, polydipsia, other. Exam & Diagnostic Data Last 24 Hrs of Vital Signs/I&O Vital Signs Date Time Temp Pulse Resp B/P B/P Pulse O2 O2 Flow FiO2 Mean Ox Delivery Rate 11/28 0000 102 98 11/27 2019 98.5 98 142/75 11/27 1707 97.9 94 159/99 97 07/25 1514 82 20 142/75 97 11/27 1326 98.2 89 21 138/70 97 Nasal 3.0L Cannula 11/27 1320 Nasal 3.0L Cannula 11/27 0927 97 Nasal 3.0L Cannula 11/27 0628 98.3 83 18 136/63 96 Nasal 3.0L Cannula 11/27 0544 65 96 Intake & Output 11/27 1600 11/28 0000 11/28 0800 Intake Total Output Total Balance Patient 131.542 kg Weight Physical Exam General Appearance Alert, Oriented X3, Cooperative, No Acute Distress Skin No Rashes, No Breakdown HEENT Atraumatic, PERRLA, EOMI, Mucous Membr. moist/pink Neck Supple, No JVD, No thryomegaly Lymphatic Cervical nl Cardiovascular Regular Rate, Normal S1, Normal S2, No Murmurs Lungs Clear to Auscultation, Normal Air Movement Abdomen Normal Bowel Sounds, Soft, No Tenderness Neurological Exam Findings: Normal Gait, Normal Speech, Strength at 5/5 X4 Ext, Normal Tone, Sensation Intact, Cranial Nerves 3-12 NL, Reflexes 2+ Cranial Nerves II through XII: 3 to 12 intact Extremities No Clubbing, No Cyanosis, Normal Pulses, No Tenderness/Swelling, +1 edema feet Vascular Normal Pulses Last 24 Hrs of Labs/Gianluca: Laboratory Tests 11/26 11/26 2232 2207 Chemistry Sodium (137 - 145 mmol/L) 139 Potassium (3.5 - 5.1 mmol/L) 3.8 Chloride (98 - 107 mmol/L) 97 L Carbon Dioxide (22 - 30 mmol/L) 30 Anion Gap (5 - 16) 12 BUN (7 - 17 mg/dL) 20 H Creatinine (0.5 - 1.0 mg/dL) 0.8 Estimated GFR (>60 ml/min) > 60 BUN/Creatinine Ratio (7 - 25 %) 25.0 Glucose (65 - 99 mg/dL) 107 H Hemoglobin A1c (4.2 - 5.8 %) 6.2 H Calcium (8.4 - 10.2 mg/dL) 9.4 Total Bilirubin (0.2 - 1.3 mg/dL) 0.3 AST (14 - 36 U/L) 17 ALT (9 - 52 U/L) 26 Alkaline Phosphatase (<127 U/L) 68 Total Protein (6.3 - 8.2 g/dL) 6.7 Albumin (3.5 - 5.0 g/dL) 4.1 Globulin (1.9 - 4.2 gm/dL) 2.6 Albumin/Globulin Ratio (1.1 - 2.2 %) 1.6 TSH &T3 &Free T4 Intrp (0.270 - 4.20 uIU/mL) 3.030 Total Beta HCG (NEGATIVE) NEGATIVE Hematology CBC w Diff NO MAN DIFF REQ WBC (4.8 - 10.8 /CUMM) 8.7 RBC (4.20 - 5.40 /CUMM) 3.97 L Hgb (12.0 - 16.0 G/DL) 12.5 Hct (37 - 47 %) 37.0 MCV (81.0 - 99.0 FL) 93.1 MCH (27.0 - 31.0 PG) 31.4 H RDW (11.5 - 14.5 %) 13.8 Plt Count (130 - 400 /CUMM) 268 MPV (7.4 - 10.4 FL) 8.0 Gran % (42.2 - 75.2 %) 60.0 Lymphocytes % (20.5 - 51.1 %) 28.3 Monocytes % (1.7 - 9.3 %) 9.7 H Eosinophils % (0 - 5 %) 1.6 Basophils % (0.0 - 2.0 %) 0.4 Absolute Granulocytes (1.4 - 6.5 /CUMM) 5.2 Absolute Lymphocytes (1.2 - 3.4 /CUMM) 2.5 Absolute Monocytes (0.10 - 0.60 /CUMM) 0.8 H Absolute Eosinophils (0.0 - 0.7 /CUMM) 0.1 Absolute Basophils (0.0 - 0.2 /CUMM) 0 PUBS MCHC (33.0 - 37.0 G/DL) 33.8 Toxicology Urine Opiates Screen (>2000 NG/ML) < 100.00 Methadone Screen (>300 NG/ML) 75 Barbiturate Screen (>200 NG/ML) < 60 Valproic Acid (50 - 120 ug/mL) 99.2 Ur Phencyclidine Scrn (>25 NG/ML) < 6.00 Amphetamines Screen (>1000 NG/ML) < 100 U Benzodiazepines Scrn (>200 NG/ML) 117 Urine Cocaine Screen (>300 NG/ML) < 50 Urine Cannabis Screen (>50 NG/ML) < 5.00 Serum Alcohol (<10 MG/DL) < 10.0 Assessment/Plan Assessment: # Schizoaffective disorder, Bipolar, PTSD: agree with Psychiatry plan # COPD on 2 lit NC at home : continue 02, advair and albuterol at home dose. # DEEPAK : continue night time on CPAP, # seasonal allergy, chronic back pain, IBS, GERD, leg edema : continue home meds including lasix 40 bid, ibuprofen, protonix 20 bid , crestor, vesicare 5 mg daily # abdo pain : resolved now, reviewed Er visit and imaging. MRCP : no acute changes # cough : conservative management Benzonatate PRN # Wants to get checked for STI : unprotected sex 5 few months back. whitish vaginal discharge, with no pain, irritation, fowl smelling, pelvic pain. Suggested to follow up out patient Biodiesel Plant Manager upon discharge, for complete exam and tests. # ? perimenopausal As Ranked By This Provider Problem List: 1. DEEPAK on CPAP 2. COPD (chronic obstructive pulmonary disease) 3. Abdominal pain Miscellaneous Miscellaneous Documentation Attending Case Discussed With: DEVIKA MARTINES,LUIS ALFREDO Everett Primary Care Physician: ILIANA MARTINES,CHAUNCEY Roy Patient sees these Specialists GI Manager Math Senior Unix Administrator Level of Patient Care: CLARE Smallwood
--- NOTE | 2016-11-28 00:41 | Admission Certification ---
Admission Certification Certification Statement - As attending physician, I certify that at the time of - admission, based on clinical presentation, severity of - symptoms, need for further diagnostic testing and - therapeutic interventions, and risk of adverse outcomes - without in-hospital treatment, in my clinical assessment, - this patient requires an acute hospital stay for a minimum - of two nights or longer. I have also considered psychsocial - factors such as support system, advanced age, financial - issues, cognitive issues, and failed out-patient treatments, - past re-admission history, safety of patient, and lack of - compliance as applicable. Specific rationale supporting this admission is: bipolar with depression
[2016-11-28 08:03] VITALS: BP 155/95
--- NOTE | 2016-11-28 10:39 | PN- Pulmonary ---
Subjective HPI/Critical Care Issues: Patient seen and examined this morning. She has received her CPAP yesterday in the setting of 14 cm of water. She is at her respiratory baseline and continuing to get psychiatric treatment. Objective Current Medications: Current Medications Sig/Sandeep Start time Last Medication Dose Route Stop Time Status Admin Acetaminophen 650 MG Q6P PRN 11/27 1000 AC 11/28 PO 0857 Al Hydroxide/Mg 30 ML Q4-6 PRN PRN 11/27 1000 AC Hydroxide PO Albuterol Sulfate 3 ML Q4H PRN 11/27 0930 DC 11/27 INH 0926 Albuterol Sulfate 2 PUF Q4-6 PRN PRN 11/27 0930 AC INH Aripiprazole 10 MG DAILY 11/27 1000 AC 11/28 PO 0857 Atorvastatin Calcium 40 MG 1700 11/27 1700 AC 11/27 PO 1921 Clonazepam 0.5 MG QPM 11/27 2200 AC 11/27 PO 12/04 2159 2314 Clonazepam 1 MG DAILY 11/27 1000 AC 11/28 PO 12/04 0959 0858 Clozapine 125 MG QPM 11/27 2200 AC 11/27 PO 2314 Divalproex Sodium 1,500 MG AT BEDTIME 11/27 2200 AC 11/27 PO 2315 Divalproex Sodium 1,000 MG ONCE ONE 11/27 1115 DC 11/27 PO 11/27 1116 1205 Escitalopram Oxalate 20 MG DAILY 11/27 1000 DC 11/27 PO 1042 Furosemide 20 MG BID 11/27 1000 AC 11/28 PO 0856 Gabapentin 300 MG Q6P PRN 11/27 1000 AC PO Magnesium Hydroxide 30 ML AT BEDTIME PRN 11/27 1000 AC PO Montelukast Sodium 10 MG AT BEDTIME 11/27 2200 AC 11/27 PO 2313 Nicotine 21 MG DAILY 11/27 1000 AC TOP Omeprazole 20 MG DAILY AC 11/27 0941 AC 11/28 PO 0658 Oxybutynin Chloride 5 MG BID 11/27 1000 AC 11/28 PO 0856 Vital Signs & I&O Last 24 Hrs of Vitals and I&O: Vital Signs Date Time Temp Pulse Resp B/P B/P Pulse O2 O2 Flow FiO2 Mean Ox Delivery Rate 11/28 802 96.7 98 155/95 11/28 0000 102 98 11/27 2018 98.5 98 142/75 07/25 1707 97.9 94 159/99 97 11/27 1514 82 20 142/75 97 11/27 1326 98.2 89 21 138/70 97 Nasal 3.0L Cannula 11/27 1320 Nasal 3.0L Cannula Intake & Output 11/28 1600 11/28 0800 11/28 0000 Intake Total Output Total Balance Patient 290 lb Weight Exam Other Physical Findings: Patient is awake and alert. Her breath sounds are diminished at the bases with rare rhonchi. Her cardiac exam is normal. Her abdomen is obese without any tenderness and she is without leg edema. Impression/Plan Impression/Plan Impression/Plan: 46 year old woman. Quit smoking. Significant coughing persists, no fevers, no chils. Allergies are significant - currently on xyzal. On O2 - can be as low as 70's without oxygen. Exertion as needed and nocturnal. Compliance - August 2016 Usage Days - 100% >4 hours - 100% AHI - 1.2 PAP - CPAP 14 cmH20 Good compliance and control. No signficant leaks. Spirometry performed 08/28/2016 Stable from respiratory perspective. On Lasix. Follows with Dr. Trinidad. Advair 250/50 BID with rinsing of the mouth. Nebulizer therapy at home. PFT performed February 2015 mild obstructive lung disease with significant bronchodilator response. DLCO is normal. Lung volumes are slightly reduced. This is consistent with a mixed defect restrictive and obstructive. CT chest with almost resolved previous GGO. Admitted to psych for depression. Plan -cont advair - can bring from home, can use symbicort while inpatient -trc/nebs -CPAP @ [id number] -f/u in office -call with any questions
[2016-11-28 12:03] VITALS: BP 130/74
[2016-11-28 12:29] VITALS: BP 130/74
--- NOTE | 2016-11-28 12:58 | NUR ---
PT IS STABLE WITH FULL RANGE OF AFFECT. PT HAS BEEN OUT IN THE COMMUNITY AND INTERACTING WITH STAFF/PEERS. PT IS PLEASANT, COOPERATIVE AND COMPLIANT. PT HAS BEEN ATTENDING GROUPS THIS AM. VS ARE STABLE AND DENIES ANY SI/HI TO THIS MHW.
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
--- NOTE | 2016-11-28 15:10 | SOCIAL WORKER TX PLAN PSYCH ---
Treatment Plan - Please Document: - Evidence that there is ongoing collaboration between - the patient and the interdisciplinary team, - including the patient's active participation and - responsibility for engaging in the treatment regimen, - and that the treatment plan is individualized and - relevant to the patient's conditions. - Treatment plan should reflect documentation indicating - that all active therapeutic efforts are included. Strengths/Capabilities: Pt has insight into symptoms and need for tx. Pt is compliant and is engaged in outpatient psychiatric treatment. Pt receives daily medication administration from a visiting nursing service. Has supportive friend. Physical Limitations (Interventions): Pt. is oxygen dependent and has back pain managed with medications. Pt is disabled and unable to work. Patient Identified Trmt Goals: "I need my medications adjusted" Discharge Plan: [facility] Problem/Goals #1 Problem #1: depression Goal (Short Term): patient will explore medication changes to assist with mood stability Goal (Usp): patient will be able to identify healthy supports and 2 coping skills to help manage mood. Interventions: patient will be offered medication management with the psychiatrist, groups on coping skill, symptom management, relaxation skills, goals group, focus group. In Room Dining Server will assist in patient identifying small goals, affirmations for the day and reframing negative self talk. In Room Dining Server will assist in coordinating aftercare and hold a family meeting. DSM5/PS Stressors/Medical Prob Diagnosis' (DSM 5, Stressors, Medical): F25.9 Schizoaffective Current GAF: 25 Treatment Team - Responsibilities of members of the treatment team include: - Medication Management- MD or PATIENT'S LIBRARIAN - Medication Administration and Monitoring- Nurse - Group Therapy- Occupational Therapist - 1:1 Therapy,Disch Planning,family involvement-In Room Dining Server
[2016-11-28 15:54] VITALS: BP 129/76
[2016-11-28 16:06] VITALS: BP 129/76
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
[2016-11-28 20:01] VITALS: BP 156/104
--- NOTE | 2016-11-28 21:06 | NUR ---
PT IS VISIBLE ON UNIT, SITTING QUIETLY IN LOUNGE AND WATCHING TV. SOCIAL WITH PEERS, COOPERATIVE AND COMPLIANT WITH STAFF. PT IS CARRYING OXYGEN TANK WITH HER AROUND UNIT, SPO2 95 AT 2000 VITALS. NO COMPLAINTS OR SI REPORTED. PT HAS A STABLE MOOD AND FULL RANGE AFFECT.
[2016-11-29 07:48] VITALS: BP 152/91
--- NOTE | 2016-11-29 10:40 | NUR ---
PT IS STABLE WITH BRIGHT, FULL RANGE OF AFFECT. PT HAS BEEN OUT IN THE COMMUNITY AND INTERACTING WITH PEERS/STAFF MEMBERS APPROPRIATELY. PT IS PLEASANT, COOPERATIVE AND COMPLIANT. PT HAS NOT BEEN ATTENDING GROUPS THIS MORNING DESPITE ENCOURAGEMENT. PT IS CURRENTLY WAITING FOR HER BURLING AND JOINING SUPERVISOR TO ARRIVE TO SPEAK WITH. VS ARE STABLE AND DENIES ANY SI/HI TO THIS MHW.
[2016-11-29 12:14] VITALS: BP 145/90
[2016-11-29 16:04] VITALS: BP 154/68
--- NOTE | 2016-11-29 16:31 | SOCIAL WORKER PROG NOTE PSYCH ---
See Addendum Social Work Progress Note Progress Note Divine was sitting in the lounge during morning meeting. Asked how she was doing? She reported feeling a little better. I asked why she was not in group? She stated she got emotional and needed some space when she heard certain music play over the speaker. She continues to look tearful. She shared that she has been incontinent of urine the past 2 nights and that is something that hasn't happened in awhile. She asked if there were any depends available? I told her I would bring it to nursings attention and they can speak with her. This was mentioned in team meeting and later to the charge nurse for the pm shift. Called and left a message for Divine's sister Elizabeth about coming in for a meeting. Also called her good friend Estela and left a message. Divine and I spoke briefly about discharge recommendations to do symptom management IOP with [facility]. I told her this was Delma's (therapist) recommendation. She is ambivalent and will think about it. She is worried about transportation and stated she usually doesn't do IOP. She did not attend groups here on the unit today. She told me that she is hopeful about her medication changes and hoping it will help her lose weight. [facility] She said she hasn't been to a meeting in 6 months. Yesterday I thought she told me she hadn't been since 2013.
[2016-11-29 19:56] VITALS: BP 159/99
--- NOTE | 2016-11-29 20:55 | NUR ---
PT VISIBLE IN THE MIL[facility] THIS EVENING. SHE WENT TO AA MEETING THIS EVENING, AND HAS BEEN INTERACTING POSITIVELY WITH PEERS. IN THE [place] PT HAS BEEN GETTING HER VITALS, AND ATE DINNER WITH HER PEERS. PT IS PLEASANT AND COOPERATIVE, DENIES THOUGHTS TO HURT HERSELF WHEN ASKED.
--- NOTE | 2016-11-30 07:18 | NUR ---
PT RETURNS. SCHIZOAFFECTIVE DISORDER WITH WORSENING DEPRESSION AND PASSIVE SI. SHE FEELS UNSAFE WHERE SHE IS LIVING. PT ON CPAP WITH ONE REFIT IN THE NIGHT AFTER INCONTINENCE. PT WORE AN ADULT DEPENDZ IN THE NIGHT. PT ON O2 2L WHEN NOT ON CPAP.
[2016-11-30 07:44] VITALS: BP 143/92
--- NOTE | 2016-11-30 11:37 | NUR ---
PT IS COMPLIANT AND COOPEARTIVE WITH UNIT RULES. PT IS OUT IN THE COMMUNITY INTERACTING WELL WITH STAFF AND PEERS. PT MOOD IS STABLE WITH A EUYTHMIC AFFECT. PT IS ATTENDING GROUPS AND GOAL THIS MORNING WAS TO FOCUS ON THE POSITIVES. PT DENIES SI THOUGHTS.
[2016-11-30 12:05] VITALS: BP 152/95
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
[2016-11-30 16:13] VITALS: BP 155/93
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
[2016-11-30 20:16] VITALS: BP 146/75
--- NOTE | 2016-11-30 21:54 | NUR ---
PT HAS BEEN PRESENT THROUGHOUT THE [facility], SOCIALIZING WITH STAFF AND PEERS. PTS AFFECT HAS APPEARED TO BE WITHDRAWN AND SLIGHTLY CONSTRICTED. PT REPORTS HAVING SOME ANXIETY AT TIMES. PT HAS BEEN PLEASANT AND COMPLIANT WITH STAFF AND UNIT RULES. PT HAS DENIED ANY THOUGHTS OF SI WHEN ASKED BY STAFF.
--- NOTE | 2016-12-01 05:23 | NUR ---
PT RETURNS AFTER EXACERBATION OF SYMPTOMS. PT ON CPAP AT NIGHT. PT WORE AN ADULT DEPENDZ IN THE NIGHT. PT IS ON O22L WHEN NOT ON CPAP. PT SLEPT BETTER.
[2016-12-01 07:43] VITALS: BP 156/82
[2016-12-01 11:54] VITALS: BP 143/98
--- NOTE | 2016-12-01 12:23 | CP SOUTH PROGRESS NOTE PSYCH ---
Psych (Inpt) Progress Note Progress Note Include the following elements, when applicable: Involvement in the active treatment of the patient with behavioral observations of the patient and the patient's response to the treatment. Review of the ongoing treatment process in the context of the treatment plan. Indication of how multi-disciplinary staff members are carrying out the treatment plan. Plans for future interventions and recommendations for revision of the treatment plan. Liaison with other physicians/providers. Progress Note: Stated that she is feeling better b/c her sister, other members of her family are coming today. Her last suicidal thoughts were yesterday. She has hope that her new medication will improve her quality of life. She has been sleeping okay. She is upset about her weight gain with steroids and copd. We discussed informing staff if she does start feeling depressed or suicidal again, and she stated that overall she feels more hopeful today about her future. MSE: middle aged woman, overweight,with good grooming and hygiene. Has nasal cannula and oxygen tank portable with her. Her speech is normal. She has no psychomotor agitation or slowing at this time. She has no tics or tremor. Her mood is good, affect is constricted and congruent to her mood. She is goal oriented in her thinking process. Her thought content is negative for gross delusions. She denies suicidal or homicidal thoughts. Her insight is adequate, her judgment is good. She has no voices and not internally preoccupied. Plan: continue current plan of care. She has been tolerating cross titration of her medication without problems.
--- NOTE | 2016-12-01 14:00 | NUR ---
PT HAS REMAINED CALM AND COOPERATIVE THROUGHOUT THIS SHIFT. SHE IS TAKING HER MEDS AND ATTENDING GROUPS. SHE REPORTS FEELING LESS DEPRESSED TODAY AND IS HOPING FOR DISCHARGE EARLY IN THE WEEK. SHE DENIES ANY THOUGHTS OF SUICIDE OR SELF HARM AT THIS TIME
[2016-12-01 15:50] VITALS: BP 155/98
--- NOTE | 2016-12-01 19:28 | NUR ---
PT IS VISIBLE ON UNIT, WATCHING TV AND SOCIALIZING WITH PEERS. PT SHOWERED THIS EVEING, ASKING STAFF FOR SOME ASSISTANCE. THIS MHW STAYED IN THE BATHROOM WITH PT WHILE SHE SHOWERED AND PT SHOWERED FOR THE MOSTLY PART INDEPENDENTLY WITH HELP FROM SHOWER CHAIR. COOPERATIVE AND COMPLIANT WITH STAFF. NO COMPLAINTS OR SI REPORTED. PT HAS A STABLE MOOD AND FULL RANGE AFFECT.
[2016-12-01 20:08] VITALS: BP 145/82
--- NOTE | 2016-12-02 06:36 | NUR ---
SLEPT 1/2 NIGHT OR LESS, RESTLESS, REFUSED PRN SLEEP MEDS, MILDLY ANXIOUS, TALKED ABOUT NEEDING FLONASE FOR ALLERGIES; TOOK PRN TYLENOL AT 0445, AND PRN ABILIFY AT 0548.
[2016-12-02 07:40] VITALS: BP 156/84
[2016-12-02 12:24] VITALS: BP 153/89
--- NOTE | 2016-12-02 12:42 | CP SOUTH PROGRESS NOTE PSYCH ---
Psych (Inpt) Progress Note Progress Note Include the following elements, when applicable: Involvement in the active treatment of the patient with behavioral observations of the patient and the patient's response to the treatment. Review of the ongoing treatment process in the context of the treatment plan. Indication of how multi-disciplinary staff members are carrying out the treatment plan. Plans for future interventions and recommendations for revision of the treatment plan. Liaison with other physicians/providers. Progress Note: Stated that she was having problems with her cpap and didnt sleep most of the night; also c/o hearing voices calling her name. She is grieving the loss of her friend, noting that she had about 5 people in the period of a month (july) . Went on about multiple other family stressors, stating that regular errands and chores are overwhelming to her. Despite this, states that she is doing better, feels that she is improving and has hope for the future. MSE: middle aged woman, with oxygen tank and nasal cannula, obese. Well groomed and good hygiene. She has no psychomotor agitation or slowing at this time. She has no tics or tremor. Her speech is normal. Her mood is good, affect is full and reactive. Her thinking is linear. She has no delusions elicited. She denies suicidal or homicidal thoughts. She states she is experiencing voices at times calling her name, but none currently and does not appear internally preoccupied. Her insight is adequate, her judgment is good. Plan: continue current plan of care. She has been tolerating cross titration of meds w/o issue. Continue encouraging socialization and engagement in programming.
--- NOTE | 2016-12-02 13:38 | NUR ---
PT IS STABLE WITH FULL RANGE OF AFFECT. PT IS POLITE, PLEASANT, CALM & COOPERATIVE. OUT IN THE COMMUNITY AND INTERACTING WITH PEERS/STAFF MEMBERS APPROPRIATELY. PT HAS BEEN ATTENDING GROUPS AND REPORTED THAT SHE HAD POOR SLEEP LAST NIGHT THAT WAS D/T HER CPAP COMING UNDONE. STATED HER GOAL TODAY WAS TO "RELAX AND REST". PT HAS BEEN MAKING PHONE CALLS TO FRIENDS/FAMILY AND HOPING THAT HER NEICE WILL COME VISIT TODAY. VS ARE STABLE AND DENIES ANY SI/HI TO THIS MHW.
[2016-12-02 15:54] VITALS: BP 156/98
--- NOTE | 2016-12-02 16:29 | NUR ---
Patient is A&O X 3, compliant and cooperative with medication and group theraies/ activities. patient is present in the community, interacts with other peers and staff members, report good night sleep and appetite. mood is stable with approprate affect, communication process is coherent and organized vital sign is stable and oxygen saturation has been 97/98 % on 2 Liters NC. Patient c/o of chest congestion with cough and order of Mucinex and nasal spray received to this effect. Patient denies thought of self-harm and to someone else.
--- NOTE | 2016-12-02 20:04 | NUR ---
PT HAS BEEN A LITTLE MORE LETHARGIC THAN PAST OBSERVATIONS, TELLING STAFF SHE WAS GOING TO GO TO SLEEP RIGHT AFTER DINNER. SHE WAS ENCOURAGED TO ATLEAST WAIT UNTIL EVENING VITALS. PTS AFFECT APPEARED WITHDRAWN, CONSTRICTED AND A LITTLE BIT ANXIOUS. PT HAS BEEN COOPERATIVE AND COMPLIANT WITH STAFF AND UNIT RULES. PT HAS DENIED ANY THOUGHTS OF SI WHEN ASKED BY STAFF.
[2016-12-02 20:13] VITALS: BP 150/100
--- NOTE | 2016-12-03 06:15 | NUR ---
PT SOCIAL. PT C O2 2L, AND CPAP AT NIGHT. O2 WAS CHANGED AT 0400. PT WORE AN ADULT DEPENDZ IN THE NIGHT. PT SLEPT. PT UP AT 0500 AND HAD TYLENOL FOR PAIN IN HER EDEMATOUS HANDS.
[2016-12-03 07:39] VITALS: BP 145/96
--- NOTE | 2016-12-03 09:06 | SOCIAL WORKER PROG NOTE PSYCH ---
Social Work Progress Note Progress Note Called [facility] and spoke with Hermelinda Noguera about appts. for Divine. She will see Dr. Rogers on 12/06 at 11:20am. Hermelinda will get back to me with an orientation date for symptom management IOP. Divine reported sleeping good last night. She said her mood is much better than yesterday. She continues to feel "fragile" emotionally, but doing ok. Feels scared about being off the Depakote and hoping the Tegretol works for her. She got tearful over talking about how she has nobody really for support right now in her life. She complained about a phone call with her sister Elizabeth. She stated she is an alcoholic and not always stable. She told me her friend Estela can't come in for a family meeting, because she is going through her own issues right now. Asked how that was effecting her? She said "I miss her." Asked who else she can use for support right now? She said her case fitter Campos at [facility] is a good support. I also talked with her about doing the symptom management IOP at [facility]. She seemed a little ambivalent, but willing to try. Talked about the benefits of getting out of the house 3 days a week and utilizing it as support for her. She signed a release for [facility] services- [facility]. Patient discussed in team meeting and all agreed she is safe to discharge today. Let Divine know she will be going home today. She was okay with that plan. Called [facility] and told them she will be discharged and will need services resumed today. Spoke with her nurse Mehran Burris and he will hand picker her meds at [facility] and see her later today. Symptom Management Orientation is 2pm on Saturday. Called [facility] to schedule a ride home for discharge. A 1pm hand picker is scheduled. Reference # [id number]. Discharge info sent to [facility] and [facility].
[2016-12-03] MEDS ORDERED: KLONOPIN0.5 M1 PO (10:37)
[2016-12-03] MEDS ORDERED: BUPROPION HCL100 M2 PO (10:37)
[2016-12-03] MEDS ORDERED: LEXAPRO10 M1 PO (10:37)
[2016-12-03] MEDS ORDERED: TEGRETOL200 M1 PO (10:37)
[2016-12-03 12:22] VITALS: BP 150/92
--- NOTE | 2016-12-03 12:51 | NUR ---
Dangelo is A&O X 3, compliant and cooperative with medication and group therapies/ activities. Patient is being discharged today and will be attending her care as her discharge, follow-up and aftercare programs. Patient acknowleges the receipt of emergency phone number and to use it when feeling overwhelmed or out control. Patient will be visiting Dr Rogers for her regualr psychiatric need. Patient denies thought of self-harm and to someone else.
--- NOTE | 2016-12-03 14:07 | NUR ---
PT IS DISCHARGED AT 1310.
--- NOTE | 2016-12-03 17:55 | CP SOUTH PROGRESS NOTE PSYCH ---
Psych (Inpt) Progress Note Progress Note Include the following elements, when applicable: Involvement in the active treatment of the patient with behavioral observations of the patient and the patient's response to the treatment. Review of the ongoing treatment process in the context of the treatment plan. Indication of how multi-disciplinary staff members are carrying out the treatment plan. Plans for future interventions and recommendations for revision of the treatment plan. Liaison with other physicians/providers. Progress Note: PSYCHIATRIST NOTE (DISCHARGE), 12/03/2016: I discussed this patient's progress to date, current mental status, treatment and discharge plans with staff team today in the daily morning ITTM and met with her again myself in individual session prior to discharging her to resume her ongoing detention outpatient treatment with the [facility] clinic in [place], [place] where she will see her treating outpatient psychiatrist, Dr. Jhoan Rogers, next on 12/06/2016 at 11:20am, and will continue to work with her case checker Campos; a referral has been made for patient to the [facility] Symptom Management IOP, and we have encouraged her to attend there; orientation for this program will take place on 12/05/2016 at 2pm. Patient will also resume twice daily home visits with Mehran Montenegro R.N., of [facility] on the afternoon of discharge and he will set up her medications at that time. Patient is feeling much better than at time of admission but did confide in me today that she is still hearing "whispers" of the voices she had been experiencing MOLD SWABBER; however, these are no longer disturbing and she is confident they will gradually recede; however, given the discontinuation of low dose Abilify some upward adjustment in dose of Clozaril may be indicated in future; unfortunately, the results of the serum clozapine level from the morning of 11/30/2016 are still pending at this time; if the concentration of clozapine/norclozapine is relatively modest I would advocate increasing dose of Clozaril by at least 25mg/day to start. Patient's affect and mood are much better, she is less emotionally labile and pressured, clearly recovering; there is no evidence of current suicidal or homicidal ideation, plans, intent or impulses, and patient is well aware of her own safety plan going forward if at some time in the future she comes to believe herself at risk for self-harm or harming others. Given the tremendous weight gain patient has experienced since starting on Depakote I felt compelled to switch to the mood stabilizer Tegretol; current carbamazepine level appears to be in therapeutic range. Even allowing that some of patient's weight gain may be contributed to by prescription of steroids for her COPD she had still gained 25 pounds in the year after starting on Depakote and that was prior to her initial course of prednisone. Patient's blood pressure has been running in the borderline to elevated range for several days; we consulted Daria Hernández M.D., who started patient on Losartan, 25mg daily; the effectiveness of this will be evaluated by patient's PCP, Dr. Chen; patient will be scheduling a visit with him soon; in the meantime, I have provided patient with a month's supply of this anti- hypertensive medication. (for details of all medications prescribed at the time of discharge, dosages, scheduling, amounts prescribed, indications, see the "Discharge Medications" section of the discharge summary for this admission in the electronic medical record)
--- NOTE | 2016-12-03 17:56 | DISCHARGE SUMMARY REPORT-PSYCH ---
Visit Information Visit Dates/Diagnosis' Admission Date: 11/27/16 Discharge Date: 12/03/16 Psy Discharge Primary Diag: Schizoaffective Disorder, Mixed with psychotic f.; MRE Depresssed with paranoid ideation and auditory hallucinations hx of PTSD Alcohol Use Disorder, in sustained full remission Cocaine Use Disorder, in sustained full remission Benzo. Dependence; has been prescribed low dose Klonopin for years; dose reduced from 1.5 to 1mg a day during this admission Hospital Course Course Allergies: Coded Allergies: amoxicillin (From Augmentin) (Intermediate, SICK - VOMITING 02/03/16) clavulanic acid (From Augmentin) (Intermediate, SICK - VOMITING 02/03/16) lithium (Intermediate, SICK - NAUSEA, DIARRHEA, VOMITING 02/03/16) Sulfa (Sulfonamide Antibiotics) (BAD RASH ALL OVER BODY 02/03/16) erythromycin base (R/O ERYTHROMYCIN (PER DR. Thomas KULKARNI MD) 02/03/16) haloperidol (From Haldol) (PER PT GETS OUT OF IT, DOESNT MOVE 02/03/16) morphine (PER PT DIDNT LIKE THE WAY IT MADE HER FEEL 02/03/16) Discharge HBIPS - Tobacco Use Treatment Offered - EtOH/Drug Use D/O Treatment Offered Metabolic Screening - Screen if on a Neuroleptic Medication - Metabolic screening should include: - Blood Pressure, BMI, Glucose or Hgb A1c, & a - Lipid profile from within the past 365 days. Discharge Instructions General Discharge Information Discharge Medications: I called into [facility], [facility], on day of discharge, 12/03/2016 ( for pick-up by visiting nurse Owen Montenegro R.N., with delivery to patient this afternoon): Tegretol, 200mg: i tab 2x/day (400mg daily); #28 with no refill (to stabilize moods--replaces Depakote ER) (Initial carbamazepine level this morning was already 7.3mcg/ml; I would not recommend increasing dose) Lexapro, 10mg: i tab daily in AM (10mg/day); #14 with no refill (anti- depressant) buproprion IR, 100mg: i tab daily in AM (100mg/day); #14 with no refill (to augment anti-depressant) Klonopin, 0.5mg: i tab 2x/day (1mg daily); #28 with no refill (diminish anxiety; should be tapered away) I also called in for patient: Losartan, 25mg: i tab daily in AM (25mg/day); #30 with no refill (anti- hypertensive) (patient's blood pressure readings had been running in at least borderline elevated range for several days with some trend towards increasing further; medical attending, Daria Hernández M.D., was consulted and recommended patient to start on Losartan now with monitoring by her regular PCP, Wesley Chen M.D., of [place], [place] patient was urged to continue to utilize nicotine gum, 2mg OTC PRN for any urges to smoke cigarettes though she assured us that she had "quit over 3 months ago" and was very pleased with this; we also gave her an appointment card for the next [facility] scheduled for 12/12/2016 at 4pm, facilitated by Natalie Rossi LCSW
== END 2016-12-03 13:10 | DRG 885 ==
LOC: ERH 20:42 → ERHI 11-27 09:33 → CP SOUTH 11-27 09:33 → EDBEDREQ 11-27 14:49 → ENTRNSPT 11-27 16:04 → CP SOUTH 11-27 16:18 → EDTRNSPT 11-27 17:51 → CP SOUTH 11-27 23:12 → CMPTRNSPT 11-28 13:36 → CP SOUTH 12-03 13:10
PROVIDERS: Emergency Medicine; ADMIT Psychiatry & Neurology Psychiatry
DX: F25.0 Schizoaffective disorder, bipolar type (principal); F13.20 Sedative, hypnotic or anxiolytic dependence, uncomplicated; F43.10 Post-traumatic stress disorder, unspecified; F10.21 Alcohol dependence, in remission; F14.21 Cocaine dependence, in remission
CPT/HCPCS: 86618; 36415; 80307; 87086; 93005; 93010; G0480; J0401

== ENCOUNTER 2017-06-05 09:56 | Inpatient (IN) | payer OTHER ==
[~2017-06-05] VITALS: Ht 162.6 cm; Wt 128.0 kg
[~2017-06-05 09:56] MED LIST changes: +ALBUTEROL2.5 MG/3 M INH/SOL; +BUPROPION HCL100 M2 PO; +BUPROPION HCL150 M4 PO; +KLONOPIN0.5 M1 PO; +LASIX40 M1 PO; +LEXAPRO10 M1 PO; +MONTELUKAST SOD10 M1 PO; +MULTI-VITAMIN1 EACH PO; +TEGRETOL200 M1 PO; +XYZAL5 M1 PO
--- NOTE | 2017-06-05 10:04 | ED PSYCHIATRIC COMPLAINT ---
See Addendum History of Present Illness General Chief Complaint: Psychiatric Related Complaint Stated Complaint: +SI Source: patient, EMS Exam Limitations: no limitations Vital Signs & Intake/Output Vital Signs & Intake/Output Vital Signs Date Time Temp Pulse Resp B/P B/P Pulse O2 O2 Flow FiO2 Mean Ox Delivery Rate 06/05 194 98.1 89 117/70 06/05 1917 98.1 89 117/70 06/05 1712 100.3 95 19 124/73 95 Room Air 06/05 1617 99.5 06/05 1423 99.5 94 20 155/95 95 Room Air 06/05 1204 100.5 77 20 128/79 96 Room Air 06/05 1012 99 Room Air 06/05 1009 100.3 98 20 142/75 96 Room Air Allergies Coded Allergies: amoxicillin (From Augmentin) (Intermediate, SICK - VOMITING 02/03/16) clavulanic acid (From Augmentin) (Intermediate, SICK - VOMITING 02/03/16) lithium (Intermediate, SICK - NAUSEA, DIARRHEA, VOMITING 02/03/16) Sulfa (Sulfonamide Antibiotics) (BAD RASH ALL OVER BODY 02/03/16) erythromycin base (R/O ERYTHROMYCIN (PER DR. Thomas KULKARNI MD) 02/03/16) haloperidol (From Haldol) (PER PT GETS OUT OF IT, DOESNT MOVE 02/03/16) morphine (PER PT DIDNT LIKE THE WAY IT MADE HER FEEL 02/03/16) Triage Nurses Notes Reviewed? yes Onset: Abrupt Duration: day(s): Timing: recent history HPI: 06/05/17 10:40 AM 47-year-old female presents to the emergency department for depression with suicidal ideation. The patient states that she's been depressed for several days. She does have a history of depression. Her therapist called 911. She says she has had thoughts of suicidal ideation with a plan. She says she would jump off her roof of her building. She lives on the fourth floor. (Ben Simmons DO) Reconcile Medications Acetaminophen (Acetaminophen 8 Hour) 650 MG TABLET.ER 2 TAB PO BID PRN PAIN ( Reported) Albuterol Sulfate (Proair Hfa) 90 MCG HFA.AER.AD 2 PUF INH AD PRN COPD ( Reported) Albuterol Sulfate 2.5 MG/3 ML (0.083 %) VIAL.NEB 1 Vial INH/SOTO BID PRN SOB ( Reported) Aripiprazole (Abilify) 10 MG TABLET 10 MG PO 2200 stabilie moods/clarify thought Aspirin (Ecotrin*) 325 MG TABLET.DR 1 TAB PO DAILY HEART/BLOOD (Reported) Bupropion HCl (Bupropion HCl Sr) 150 MG TABLET.ER 150 MG PO 0800 anti- depressant Carbamazepine (Tegretol) 200 MG TABLET 200 MG PO 0800,2200 mood stabilization Clonazepam (Klonopin) 0.5 MG TABLET 0.5 MG PO 0800,2200 panic anxiety take one tablet twice a day and one tablet as needed for panic anxiety (maximum of 3 tablets/day) Clozapine (Clozaril) 100 MG TABLET 1 TAB PO QPM MENTAL HEALTH (Reported) Clozapine (Clozaril) 25 MG TABLET 1 TAB PO QPM MENTAL HEALTH (Reported) Cyanocobalamin (Vitamin B-12) 1,000 MCG TABLET 1 TAB PO DAILY SUPPLEMENT ( Reported) Escitalopram Oxalate (Lexapro) 10 MG TABLET 20 MG PO 1000 anti-depressant Fluticasone/Salmeterol (Advair 250-50 Diskus) 250 MCG-50 MCG/DOSE BLST.W.DEV 1 PUF INH BID BREATHING PROBLEMS (Reported) Furosemide (Lasix) 40 MG TABLET 1 TAB PO BID DIURETIC (Reported) Levocetirizine Dihydrochloride (Xyzal) 5 MG TABLET 1 TAB PO DAILY ALLERGIES ( Reported) Montelukast Sodium 10 MG TABLET 1 TAB PO DAILY ALLERGIES/RESP. (Reported) Multivitamin (Multi-Vitamin Daily) 1 EACH TABLET 1 TAB PO DAILY SUPPLEMENT ( Reported) Nicotine (Nicoderm Cq) 21 MG/24 HOUR PATCH.TD24 1 PAT TOP DAILY SMOKING CESSATION (Reported) Pantoprazole Sodium (Protonix) 20 MG TABLET.DR 1 TAB PO BID GI (Reported) Rosuvastatin Calcium (Crestor) 10 MG TABLET 1 TAB PO DAILY HPL (Reported) Solifenacin Succinate (Vesicare) 5 MG TABLET 1 TAB PO DAILY BLADDER HEALTH ( Reported) Triamcinolone Acetonide 0.1 % CREAM..G. 1 CATRACHO TOP BID AFFECTED AREA(S) - SKIN (Reported) (Claudia MARTINES,Tamiko) Past History Medical History Any Pertinent Medical History? see below for history Neurological: NONE EENT: allergies Cardiovascular: edema (on Lasix) Respiratory: asthma, bronchitis, DEEPAK Gastrointestinal: GERD, irritable bowel syndrome Hepatic: NONE Renal: NONE Musculoskeletal: chronic back pain, falls, sciatica Psychiatric: anxiety, bipolar disease, chronic pain disorder, depression, schizo affective disorder, substance abuse (alcohol/cocaine--in remission), PTSD Endocrine: obesity (gained 100+ lbs. in 4 years) Blood Disorders: NONE Cancer(s): NONE CLOAK ROOM ATTENDANT/Reproductive: NOCTURNAL INCONTINENCE History of MRSA: No History of VRE: No History of CDIFF: No Surgical History Surgical History: laminectomy Psychosocial History Who do you live with Patient/Self Services at Home Home Health Aide, Nursing, Oxygen What is your primary language Belarusian Family History Family History, If Any: SISTER FHx: heart failure MOTHER FHx: lung cancer Relation not specified for: *No pertinent family history Hx Contributory? No (Ben Simmons DO) Review of Systems Review of Systems Constitutional: Denies: fever. EENTM: Reports: no symptoms. Respiratory: Reports: no symptoms. Cardiovascular: Denies: chest pain. GI: Denies: abdominal pain. Genitourinary: Reports: no symptoms. Musculoskeletal: Reports: no symptoms. Skin: Reports: no symptoms. Neurological/Psychological: Reports: depressed. Hematologic/Endocrine: Reports: no symptoms. Immunologic/Allergic: Reports: no symptoms. (Ben Simmons DO) Physical Exam Physical Exam General Appearance: awake, anxious Head: atraumatic, normal appearance Eyes: Bilateral: normal appearance, PERRL, EOMI. Ears, Nose, Throat: normal pharynx, normal ENT inspection Neck: normal inspection, supple, full range of motion Respiratory: normal breath sounds, chest non-tender, no respiratory distress Cardiovascular: regular rate/rhythm Gastrointestinal: soft, non-tender Extremities: normal range of motion Neurological/Psychiatric: anxious, depressed affect Appearance/Memory/Insight: disheveled Behavoir/Eye Contact/Speech: cooperative Thoughts/Hallucinations: no apparent hallucination Skin: intact, normal color, warm/dry SAD PERSONS SAD PERSONS Response Value Age <19 or >45 years? yes 1 Depression/Hopelessness? yes 2 Previous Attempts/Psych Care yes 1 Single//? yes 1 Social Support? has no support 1 Stated Future Intent? yes 2 Total 8 SAD PERSONS Done? yes (Ben Simmons DO) Progress Differential Diagnosis: depression, si, Plan of Care: Orders Procedure Date/time Status TEGRETOL LEVEL 06/09 0600 Active Regular Diet 06/06 B Active Vital Signs 06/05 1926 Active Inpt Psych Teach/Educate 06/05 1926 Active Nutritional Intake, Monitor 06/05 1926 Active Inpt Psych Auricular Acupunctu 06/05 192 Active URINE 06/05 1835 Active Patient Data - inpatient psych 06/05 180 Active Admit to inpatient psych 06/05 180 Active Admit to inpatient psych 06/05 1759 Active Add-on Test (ER Only) 06/05 175 Active RAPID VIRAL INFLUENZA A 06/05 1545 Complete Add-on Test (ER Only) 06/05 1457 Active URINE DRUG SCREEN FOR ER ONLY 06/05 1148 Complete TSH REFLEX 06/05 1113 Complete TEGRETOL LEVEL 06/05 1113 Complete Continuous Observation Monitor 06/05 1050 Complete CULTURE,URINE 06/05 1050 Active ETHANOL 06/05 1050 Complete COMPREHENSIVE METABOLIC PANEL 06/05 1050 Complete CBC WITHOUT DIFFERENTIAL 06/05 1050 Complete ED CRISIS PSYCH CONSULT 06/05 1050 Active Intake & Output 06/05 1011 Complete Lab Add-on Test 06/05 UNK Active Vital Signs 06/05 UNK Complete Nursing Misc 06/05 UNK Active Alternative Nursing Therapy 06/05 UNK Active Activity/Ambulation 06/05 UNK Active EKG 06/05 UNK Active Current Medications Sig/Sandeep Start time Last Medication Dose Stop Time Status Admin Atorvastatin Calcium 40 MG 1700 06/06 1700 AC (Lipitor) Aspirin Buffered 325 MG DAILY 06/06 1000 AC (Ecotrin) Bupropion HCl 150 MG DAILY 06/06 1000 AC (Wellbutrin SR) Cyanocobalamin 1,000 MCG DAILY 06/06 1000 AC (Vitamin B12) Escitalopram Oxalate 20 MG DAILY 06/06 1000 AC (Lexapro) Loratadine 10 MG DAILY 06/06 1000 AC (Claritin) Multivitamins 1 TAB DAILY 06/06 1000 AC (Theragran Vitamins) Furosemide 40 MG 7:30 AM, & 4:30 PM 06/06 0730 AC (Lasix) Omeprazole 40 MG DAILY AC 06/06 0700 AC (Prilosec) Aripiprazole 10 MG AT BEDTIME 06/05 2200 AC (Abilify) Budesonide/ 2 PUF BID 06/05 2199 AC Formoterol Fumarate (Symbicort) Carbamazepine 200 MG BID 06/05 2199 AC (Tegretol) Clonazepam 0.5 MG BID 06/05 2199 AC (KlonoPIN) 06/12 2158 Clozapine 100 MG AT BEDTIME 06/05 2199 AC (Clozaril 100MG Tab) Clozapine 25 MG AT BEDTIME 06/05 2199 AC (Clozaril 25MG Tab) Montelukast Sodium 10 MG AT BEDTIME 06/05 2199 AC (Singulair) Oxybutynin Chloride 2.5 MG BID 06/05 2199 AC (Ditropan 2.5MG Tab(1/2 of a 5mg tab)) Nicotine 2 MG Q2P PRN 06/05 1844 AC (Nicotine) Albuterol Sulfate 2 PUF Q6P PRN 06/05 1829 AC (Ventolin) Clonazepam 0.5 MG DAILY NEEDED PRN 06/05 1829 AC (KlonoPIN) 06/12 1828 Fluticasone 2 SPRAY DAILY PRN 06/05 183 AC Propionate (Flonase) Acetaminophen 650 MG Q6P PRN 06/05 1814 AC (Tylenol) Al Hydroxide/Mg 30 ML Q4-6 PRN PRN 06/05 1814 AC Hydroxide (Maalox Plus) Furosemide 40 MG ONCE ONE 06/05 1814 CAN (Lasix) 06/05 1815 Gabapentin 300 MG Q6P PRN 06/05 1814 AC (Neurontin) Magnesium Hydroxide 30 ML AT BEDTIME PRN 06/05 1814 AC (Milk Of Magnesia) Olanzapine 10 MG Q12P PRN 06/05 1814 AC (ZyPREXA) Trazodone HCl 50 MG AT BEDTIME NEED.. 06/05 1814 AC (Desyrel) Laboratory Tests 06/05/17 1113: Anion Gap 15, Estimated GFR > 60, BUN/Creatinine Ratio 16.7, Glucose 106 H, Calcium 9.9, Total Bilirubin 0.3, AST 24, ALT 41, Alkaline Phosphatase 141 H, Total Protein 7.6, Albumin 4.6, Globulin 3.0, Albumin/Globulin Ratio 1.5, TSH & T3 &Free T4 Intrp 1.270, CBC w Diff NO MAN DIFF REQ, RBC 4.44, MCV 90.1, MCH 30.4, MCHC 33.7, RDW 13.7, MPV 7.7, Gran % 73.9, Lymphocytes % 17.3 L, Monocytes % 7.0, Eosinophils % 1.0, Basophils % 0.8, Absolute Granulocytes 7.3 H, Absolute Lymphocytes 1.7, Absolute Monocytes 0.7 H, Absolute Eosinophils 0.1 , Absolute Basophils 0.1, Carbamazepine 6.7, Serum Alcohol < 10.0 06/05/17 1104: Urine Opiates Screen < 100.00, Methadone Screen 43, Barbiturate Screen < 60, Ur Phencyclidine Scrn < 6.00, Amphetamines Screen < 100, U Benzodiazepines Scrn < 85, Urine Cocaine Screen < 50, Urine Cannabis Screen < 5.00 Microbiology 06/05 1618 NASOPHARYN: Influenza Virus A & B Rapid Smear - COMP 06/05 110 URINE ROUT: Urine Culture - RECD awaiting crisis consult (Ben Simmons DO) 7:15 PM PATIENT ADMITTED BY DR SIMMONS. (Claudia MARTINES,[facility]) Initial ED EKG: none (Ben Simmons DO) Departure Departure Disposition: STILL A PATIENT Condition: Stable Clinical Impression Primary Impression: Depression Referrals: April MARTINES,[facility]ley Roy (PCP/Family) Departure Forms: Customer Survey General Discharge Information Comments 06/05/17 5:40 PM The patient is pending evaluation by crisis. Continuous observation and has been initiated. She is pending crisis evaluation. She will be signed out to Dr. Taylor at 7 PM (Ben Simmons DO)
[2017-06-05 11:19] LABS: ABSOLUTE BASOPHIL COUNT 0.1 /CUMM (0.0-0.2); ABSOLUTE EOSINOPHIL COUNT 0.1 /CUMM (0.0-0.7); ABSOLUTE GRANULOCYTE CT 7.3 /CUMM (1.4-6.5); ABSOLUTE LYMPH COUNT 1.7 /CUMM (1.2-3.4); ABSOLUTE MONOCYTE COUNT 0.7 /CUMM (0.10-0.60); BASOPHIL % 0.8 % (0.0-2.0); GRANULOCYTE % 73.9 % (42.2-75.2); MEAN CORPUSCULAR HGB 30.4 PG (27.0-31.0); MEAN CORPUSCULAR HGB CONC 33.7 G/DL (33.0-37.0); MEAN CORPUSCULAR VOLUME 90.1 FL (81.0-99.0); MEAN PLATELET VOLUME 7.7 FL (7.4-10.4); PLATELET COUNT 265 /CUMM (130-400); RBC DISTRIBUTION WIDTH 13.7 % (11.5-14.5); RED BLOOD CELL CT 4.44 /CUMM (4.20-5.40); WHITE BLOOD CELL COUNT 9.9 /CUMM (4.8-10.8)
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
[2017-06-05] MEDS ORDERED: NICODERM CQ1 EAC2 TOP (18:40)
[2017-06-05] MEDS ORDERED: ACETAMINOPHEN650 M4 PO (18:42)
[2017-06-05] MEDS ORDERED: TRIAMCINOLONE A15 G1 TOP (18:43)
[2017-06-05 19:17] VITALS: BP 117/70
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
[2017-06-05 19:42] VITALS: BP 117/70
[2017-06-06 07:52] VITALS: BP 118/59
--- NOTE | 2017-06-06 11:35 | SOCIAL WORKER PROG NOTE PSYCH ---
Social Work Progress Note Progress Note Dr. Castro and I met with Divine together this morning. Divine reports that she is going through menopause and she thinks that may be contributing to her mood right now. She would like the doctor to coordinate with her Gynocologist Dr. Doss from [facility]. She thinks she may need a hormone patch. She reports her depression has worsened over the past week. Reports increased sleep - going to bed around 6:30pm. She states "I can't take it anymore." She denies intent to kill herself, but states "I just don't want to be here." Feels hopeless, helpless, worthless, and a little guilty. She does idenitify some strengths such as being a good listener, trustworthiness, loyal, being humorous. She is currently an active patient at [facility]. She just finished IOP there and has been going to a women's group weekly. She sees Delma Rios for therapy and sees Dr. Drew for medication management. 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 She rates sadness today at a 4 (1-10, 10 being worst). She couldn't identify a rating for her anxiety, stating it varies throughout the day. She identifies several losses that contribute to her sadness. She named several people ranging from immediate family members to friends. None seem very recent and range back to about 17 years ago when her 2 sisters passed. Current supports identified are several friends, her Stepfather and her Brother. She reports a hx of multiple suicide attempts by overdose and that is why she has VNS. She was ambivalent about setting up a supportive meeting. She then said I could try to set one up with her Brother Milo [phone] and her Step Father [phone]. I called Milo Richard and he will be available for 3pm on Saturday.
--- NOTE | 2017-06-06 11:37 | SOCIAL WORKER PROG NOTE PSYCH ---
Social Work Progress Note Progress Note Dr. Castro and I met with Divine together this morning. Divine reports that she is going through menopause and she thinks that may be contributing to her mood right now. She would like the doctor to coordinate with her Gynocologist Dr. Doss from [facility]. She thinks she may need a hormone patch. She reports her depression has worsened over the past week. Reports increased sleep - going to bed around 6:30pm. She states "I can't take it anymore." She denies intent to kill herself, but states "I just don't want to be here." Feels hopeless, helpless, worthless, and a little guilty. She does idenitify some strengths such as being a good listener, trustworthiness, loyal, being humorous. She is currently an active patient at [facility]. She just finished IOP there and has been going to a women's group weekly. She sees Delma Rios for therapy and sees Dr. Drew for medication management. 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 She rates sadness today at a 4 (1-10, 10 being worst). She couldn't identify a rating for her anxiety, stating it varies throughout the day. She identifies several losses that contribute to her sadness. She named several people ranging from immediate family members to friends. None seem very recent and range back to about 17 years ago when her 2 sisters passed. Current supports identified are several friends, her Stepfather and her Brother. She reports a hx of multiple suicide attempts by overdose and that is why she has VNS. She was ambivalent about setting up a supportive meeting. She then said I could try to set one up with her Brother Milo [phone] and her Step Father [phone]. I called Milo Richard and he will be available for 3pm on Saturday. Called [facility] and left a message with Gracia Bustamante.
[2017-06-06 12:14] VITALS: BP 144/75
--- NOTE | 2017-06-06 13:28 | CPS PROVIDER INIT ASMT PSYCH ---
Psychiatric Admission [employer]'s Note Reviewed: Yes Patient Seen and Examined: Yes (Seen with Carmen Cunningham LCSW.) Identifying Information: The patient is a 47-year-old single white woman with history of schizoaffective disorder, bipolar type, and PTSD. She has a history of substance abuse in sustained full remission. Chief Complaint: Expressed suicidal ideation to visiting nurse to jump off her fourth floor balcony. Reaction to Hospitalization: States she does not really want to be here but she knows she needs to be here for a medication adjustment. History of Present Illness Onset of Illness: Chronic mental illness. Feeling worse this episode for probably over 1 week. Circumstances Leading to Admission: Suicidal ideation. Reports a history of multiple, multiple losses, includin sisters 4 days apart 17 years ago 2 friend 16 years ago Mother in 2009 Friend Chuck in 2013 Refinery Technician in 2006. Problem(s) Justifying Need for Admission: Suicidal ideation. Low mood, feeling hopeless and helpless. Other HPI: Patient reports dealing with menopause for quite a while and she believes that it is setting everything off. She would like me to contact her CANDLEMAKER, Dr. Cher Fisher, regarding possibly starting an estrogen patch. Reports she has been going to sleep at 6:30 or 7:30 PM so as not to feel. Reports having long crying episodes. Has been feeling that nobody loves her. Reports she has had a lot of loss. Has been feeling like she does not want to be here anymore and cannot take it anymore. Reports she has had mental illness since age 15 and has not been manic for over 5 years. Sleep: Going to bed early, having 2 episodes of middle of the night awakenings, but overall hypersomnic. Appetite: Reports she hardly ate yesterday but ate a little today. Reports she lost 4 pounds over 3 weeks. Energy: "eh." Case and treatment plan discussed in team meeting. Staff reports that the patient was a little tearful this morning. Past Psychiatric History Past Diagnosis(es)- if any: Schizoaffective disorder, bipolar type PTSD Alcohol use disorder in sustained full remission Cocaine use disorder in sustained full remission Prescribed Klonopin dependence Past Precipitating Factors- if any: of a neighbor. - Include inpatient and outpatient treatment Treatment History: Receives outpatient treatment at [facility] [place]. Recently completed IOP there. He sees Delma Kc and Dr. Drew. Attends a women's group on Wednesdays. First inpatient admission was at age 15. Has had multiple hospitalizations, including at [facility], [place] and [facility]. History of Suicide Attempts or Gestures Reports history of multiple attempts, including a Depakote overdose. Substance Abuse History: Reports she quit tobacco about 4 months ago. Last alcohol use was 16 years ago. Past recreational use of cocaine, crack and marijuana, last use 17 years ago. Allergies: Coded Allergies: amoxicillin (From Augmentin) (Intermediate, SICK - VOMITING 02/03/16) clavulanic acid (From Augmentin) (Intermediate, SICK - VOMITING 02/03/16) lithium (Intermediate, SICK - NAUSEA, DIARRHEA, VOMITING 02/03/16) Sulfa (Sulfonamide Antibiotics) (BAD RASH ALL OVER BODY 02/03/16) erythromycin base (R/O ERYTHROMYCIN (PER DR. Thomas KULKARNI MD) 02/03/16) haloperidol (From Haldol) (PER PT GETS OUT OF IT, DOESNT MOVE 02/03/16) morphine (PER PT DIDNT LIKE THE WAY IT MADE HER FEEL 02/03/16) Home Med List: Reconcile Medications Acetaminophen (Acetaminophen 8 Hour) 650 MG TABLET.ER 2 TAB PO BID PRN PAIN ( Reported) Albuterol Sulfate (Proair Hfa) 90 MCG HFA.AER.AD 2 PUF INH AD PRN COPD ( Reported) Albuterol Sulfate 2.5 MG/3 ML (0.083 %) VIAL.NEB 1 Vial INH/SOTO BID PRN SOB ( Reported) Aripiprazole (Abilify) 10 MG TABLET 10 MG PO 2200 stabilie moods/clarify thought Aspirin (Ecotrin*) 325 MG TABLET.DR 1 TAB PO DAILY HEART/BLOOD (Reported) Bupropion HCl (Bupropion HCl Sr) 150 MG TABLET.ER 150 MG PO 0800 anti- depressant Carbamazepine (Tegretol) 200 MG TABLET 200 MG PO 0800,2200 mood stabilization Clonazepam (Klonopin) 0.5 MG TABLET 0.5 MG PO 0800,2200 panic anxiety take one tablet twice a day and one tablet as needed for panic anxiety (maximum of 3 tablets/day) Clozapine (Clozaril) 100 MG TABLET 1 TAB PO QPM MENTAL HEALTH (Reported) Clozapine (Clozaril) 25 MG TABLET 1 TAB PO QPM MENTAL HEALTH (Reported) Cyanocobalamin (Vitamin B-12) 1,000 MCG TABLET 1 TAB PO DAILY SUPPLEMENT ( Reported) Escitalopram Oxalate (Lexapro) 10 MG TABLET 20 MG PO 1000 anti-depressant Fluticasone/Salmeterol (Advair 250-50 Diskus) 250 MCG-50 MCG/DOSE BLST.W.DEV 1 PUF INH BID BREATHING PROBLEMS (Reported) Furosemide (Lasix) 40 MG TABLET 1 TAB PO BID DIURETIC (Reported) Levocetirizine Dihydrochloride (Xyzal) 5 MG TABLET 1 TAB PO DAILY ALLERGIES ( Reported) Montelukast Sodium 10 MG TABLET 1 TAB PO DAILY ALLERGIES/RESP. (Reported) Multivitamin (Multi-Vitamin Daily) 1 EACH TABLET 1 TAB PO DAILY SUPPLEMENT ( Reported) Nicotine (Nicoderm Cq) 21 MG/24 HOUR PATCH.TD24 1 PAT TOP DAILY SMOKING CESSATION (Reported) Pantoprazole Sodium (Protonix) 20 MG TABLET.DR 1 TAB PO BID GI (Reported) Rosuvastatin Calcium (Crestor) 10 MG TABLET 1 TAB PO DAILY HPL (Reported) Solifenacin Succinate (Vesicare) 5 MG TABLET 1 TAB PO DAILY BLADDER HEALTH ( Reported) Triamcinolone Acetonide 0.1 % CREAM..G. 1 CATRACHO TOP BID AFFECTED AREA(S) - SKIN (Reported) - Include any medical condition(s) that may - impact the patient's recovery/remission Past Medical History: Chronic obstructive sleep apnea, on CPAP at night. Morbid obesity. COPD. History of asthma and bronchitis. History of edema, on Lasix. Chronic back pain. History of dermoid cystectomy near left ovary. History of the lower back fusion/laminectomy. History of bilateral carpal tunnel surgeries. Past History Medical History Neurological: NONE EENT: allergies Cardiovascular: edema (on Lasix) Respiratory: asthma, bronchitis, DEEPAK Gastrointestinal: GERD, irritable bowel syndrome, reflux Hepatic: NONE Renal: NONE Musculoskeletal: chronic back pain, falls, sciatica Psychiatric: anxiety, bipolar disease, chronic pain disorder, depression, schizo affective disorder, substance abuse (alcohol/cocaine--in remission), PTSD Endocrine: obesity (gained 100+ lbs. in 4 years) Blood Disorders: NONE Cancer(s): NONE CANDLEMAKER/Reproductive: NOCTURNAL INCONTINENCE History of MRSA: No History of VRE: No History of CDIFF: No Isolation History: Standard Influenza Vaccine: 05/06/16 Surgical History Surgical History: LUMBAR FUSION DEC 2014 (with continuing back pain) Psychiatric Family/Social Hx Family History Psychiatric Illness: Schizophrenia: Paternal grandmother. Depression and anxiety: maternal grandfather, mother, sister, brother. Bipolar disorder: 2 sisters. Bipolar disorder/schizophrenia: 2 nieces. Substance Use: Brother is in recovery. Sister drinks. One sister was an addict and alcoholic. One sister was on methadone maintenance. Paternal grandfather alcoholic. Suicides: Denies. Social History Living Situation: Lives alone. Significant Relationships (family/friends): Single, no children. Mother is . Father, stepmother and stepfather are alive. Patient has surviving brother, sister, and stepbrother. Education: Dropped out in the 12th grade. Vocation/Occupation: On disability. Legal: No history of arrests. Healthly Behaviors Screening Tobacco Screening Tobacco Use from ED Docu: Current Daily Use Daily Tobacco Use Amount/Type: => 5 Cigarettes daily - If tobacco counseling indicated - the following topics are required. - #1 Recognizing dangerous situations. - #2 Coping Skills. - #3 Basic information about quitting. Status of Tobacco Cessation Counseling: #1, #2 AND #3 Completed Cessation Med Status Nicotine Gum Ordered Alcohol Screening - ETOH screen POS if BAL >=80 or Audit-C>= M4/F3 Audit-C Score from Diag Assess: 0 Blood Alcohol Level: Laboratory Tests 06/05 1113 Toxicology Serum Alcohol (<10 MG/DL) < 10.0 Alcohol Use Screening Results: Neg per Audit C &/or BAL - If ETOH counseling indicated - the following topics are required. - #1 Express concern about the patient's - drinking at unhealthy levels, include informing - of national norms for moderate drinking: - men <= 14 drinks/week, max 4 drinks/occasion - women <= 7 drinks/week, max 3 drinks/occasion - #2 Providing feedback, including linking alcohol to - negative physical effects (liver injury, hypertension) - negative emotional effects (relationship problems and - depression) - negative occupational consequences (reduced work - performance) - #3 Advising the patient to abstain from alcohol or - to drink below national norms for moderate drinking - (as listed above). Status of ETOH Use Counseling: N/A B/C NO ETOH Use Metabolic Screening - Screen if on a Neuroleptic Medication - Metabolic screening should include: - Blood Pressure, BMI, Glucose or Hgb A1c, & a - Lipid profile from within the past 365 days. Metabolic Screening () Not Applicable, patient not on a neuroleptic. OR () Patient on a neuroleptic(s) . Enter below results for Hemoglobin A1C, and lipid panel if obtained during the last 365 days. BMI: 48.400 Blood Pressure: 144/75 Laboratory Results From [facility] (If applicable): [x] Lab Cholesterol 201 MG/DL H 01/20/17 0635 Cholesterol/HDL Ratio 6 % H 01/20/17 0635 HDL Cholesterol 36 mg/dL L 01/20/17 0635 Hemoglobin A1c 6.2 % H 01/20/17 0635 LDL Cholesterol Direct 124.27 mg/dL H 01/20/17 0635 LDL Cholesterol, Calc ND mg/dL 01/20/17 0635 Triglycerides 455 mg/dL H 01/20/17 0635 Exam and Plan Mental Status Examination Ambulation Status: Ambulation is within normal limits. Appearance: Obese, casually dressed white woman sitting in a chair in no acute distress. She was in group prior to meeting with us. Attitude towards examiner: Calm, polite and cooperative. Psychomotor activity: There is no psychomotor agitation or retardation. Behavior: Behaviors is within normal limits. Quality of speech: Speech is normal in volume, rate and tone. Affect: Affect ranges from calm/euthymic to tearful and fragile. Mood: Reports mood is better than it was yesterday. Rates sad mood about 4/10. Reports her anxiety is currently okay but varies every minute. Feels hopeless, helpless and worthless. Feels guilty a little bit. Suicidal Ideation: Reports having passive suicidal ideation only. Denies active suicidal ideation. Gives a safety promise for here. Homicidal Ideation: Denies homicidal ideation. Hallucinations: Denies auditory hallucinations. Regarding visual hallucinations, reports that she sees things out of the corner of her eye, and indicates that she believes in ghosts. Paranoid/Delusional Material: Reports some paranoia, feeling that at times, when she sees and hears people laughing, they could be laughing at her. Reports having a little bit of CHATO, for example a coincidence when she is ringing someone on the phone and they were just about to call her. Difficulties with thought organization: Thinking is clear, logical and goal-directed. Insight: Fair. Judgment: Poor, as evidenced by suicidal ideation. Orientation: The patient is oriented 3. Cognition: Grossly intact. Memory Function: Grossly intact. Estimate of intellectual functioning: Average. Assets/Strengths Patient Identified Assets/Strengths: Patient reports that she is good at listening, good at poetry, makes jewelry boxes, is good at coloring, makes people laugh, is trustworthy and loyal. Impression/Plan Impression and Plan: The patient is here with an exacerbation of her chronic mental illness. She reports a history of multiple losses. She has multiple medical problems. She has PTSD related to childhood trauma. She has a history of substance abuse in remission. - Include all active medical diagnosis that require tx DSM 5 Diagnosis(es): Schizoaffective disorder, bipolar type. PTSD. Morbid obesity. COPD. COSA. Allergies. Edema, treated with Lasix. Asthma. GERD. Irritable bowel syndrome. Chronic back pain. Hyperlipidemia. Elevated hemoglobin A1c. History of urinary problems. Past history of low vitamin B12. - Initial Tx Plan for Active Psych & Medical Conditions Treatment Plan: The patient will be monitored on the unit for safety, psychosis and mood disorder. Additional information is needed from collaterals, including family and outpatient treaters. I recommend an increase in clozapine dose, although the patient asked about an increase in Abilify dose. I will contact Dr. Drew about this once we have a release of information. Anticipate once clinically stable, that the patient will be discharged to home and be referred to [facility] [place]. - Factors that would help patient function - in a less restrictive setting. Factors: No longer suicidal.
--- NOTE | 2017-06-06 13:47 | History & Physical ---
General Information and HPI History of Present Illness: This middle-aged female came in for increasing depression. She has a long- standing history of previous psychiatric illness and her last admission in the hospital was about 6 months ago. She claims she has been increasingly depressed although there is no clear precipitating factor. She lives alone and has not been employed for many many years. She reports that she has had back surgery for fusion couple years ago in [facility] but denies any other major surgical illnesses in the past and denies any major accidents or injuries or broken bones. She claims she has COPD and sees a fire patroller as outpatient in a few months. She is on Advair improve air in addition to her CPAP for the COPD and claims that she is not smoking anymore and the last cigarette was about 4 months ago. She denies drinking any alcohol at this time and claims that she had problem with alcohol about 14 years ago when she became sober and has not had any drink since then. Her family history is positive for the mother dying in mid 60s from lung cancer and was a smoker and she claims that 2 of her sisters in their early 40s 4 days heart other she claims that was from heart disease and heart failure in 1 and the unknown cause in the other. The patient is single never and no children and claims that she is going through the menopause gets hot flashes off and on. Allergies/Medications Allergies: Coded Allergies: amoxicillin (From Augmentin) (Intermediate, SICK - VOMITING 02/03/16) clavulanic acid (From Augmentin) (Intermediate, SICK - VOMITING 02/03/16) lithium (Intermediate, SICK - NAUSEA, DIARRHEA, VOMITING 02/03/16) Sulfa (Sulfonamide Antibiotics) (BAD RASH ALL OVER BODY 02/03/16) erythromycin base (R/O ERYTHROMYCIN (PER DR. Thomas KULKARNI MD) 02/03/16) haloperidol (From Haldol) (PER PT GETS OUT OF IT, DOESNT MOVE 02/03/16) morphine (PER PT DIDNT LIKE THE WAY IT MADE HER FEEL 02/03/16) Home Med list Acetaminophen (Acetaminophen 8 Hour) 650 MG TABLET.ER 2 TAB PO BID PRN PAIN ( Reported) Albuterol Sulfate (Proair Hfa) 90 MCG HFA.AER.AD 2 PUF INH AD PRN COPD ( Reported) Albuterol Sulfate 2.5 MG/3 ML (0.083 %) VIAL.NEB 1 Vial INH/SOTO BID PRN SOB ( Reported) Aripiprazole (Abilify) 10 MG TABLET 10 MG PO 2200 stabilie moods/clarify thought Aspirin (Ecotrin*) 325 MG TABLET.DR 1 TAB PO DAILY HEART/BLOOD (Reported) Bupropion HCl (Bupropion HCl Sr) 150 MG TABLET.ER 150 MG PO 0800 anti- depressant Carbamazepine (Tegretol) 200 MG TABLET 200 MG PO 0800,2200 mood stabilization Clonazepam (Klonopin) 0.5 MG TABLET 0.5 MG PO 0800,2200 panic anxiety take one tablet twice a day and one tablet as needed for panic anxiety (maximum of 3 tablets/day) Clozapine (Clozaril) 100 MG TABLET 1 TAB PO QPM MENTAL HEALTH (Reported) Clozapine (Clozaril) 25 MG TABLET 1 TAB PO QPM MENTAL HEALTH (Reported) Cyanocobalamin (Vitamin B-12) 1,000 MCG TABLET 1 TAB PO DAILY SUPPLEMENT ( Reported) Escitalopram Oxalate (Lexapro) 10 MG TABLET 20 MG PO 1000 anti-depressant Fluticasone/Salmeterol (Advair 250-50 Diskus) 250 MCG-50 MCG/DOSE BLST.W.DEV 1 PUF INH BID BREATHING PROBLEMS (Reported) Furosemide (Lasix) 40 MG TABLET 1 TAB PO BID DIURETIC (Reported) Levocetirizine Dihydrochloride (Xyzal) 5 MG TABLET 1 TAB PO DAILY ALLERGIES ( Reported) Montelukast Sodium 10 MG TABLET 1 TAB PO DAILY ALLERGIES/RESP. (Reported) Multivitamin (Multi-Vitamin Daily) 1 EACH TABLET 1 TAB PO DAILY SUPPLEMENT ( Reported) Nicotine (Nicoderm Cq) 21 MG/24 HOUR PATCH.TD24 1 PAT TOP DAILY SMOKING CESSATION (Reported) Pantoprazole Sodium (Protonix) 20 MG TABLET.DR 1 TAB PO BID GI (Reported) Rosuvastatin Calcium (Crestor) 10 MG TABLET 1 TAB PO DAILY HPL (Reported) Solifenacin Succinate (Vesicare) 5 MG TABLET 1 TAB PO DAILY BLADDER HEALTH ( Reported) Triamcinolone Acetonide 0.1 % CREAM..G. 1 CATRACHO TOP BID AFFECTED AREA(S) - SKIN (Reported) Past History Travel History Traveled to [place] past 21 day No Medical History Neurological: NONE EENT: allergies Cardiovascular: edema (on Lasix) Respiratory: asthma, bronchitis, DEEPAK Gastrointestinal: GERD, irritable bowel syndrome, reflux Hepatic: NONE Renal: NONE Musculoskeletal: chronic back pain, falls, sciatica Psychiatric: anxiety, bipolar disease, chronic pain disorder, depression, schizo affective disorder, substance abuse (alcohol/cocaine--in remission), PTSD Endocrine: obesity (gained 100+ lbs. in 4 years) Blood Disorders: NONE Cancer(s): NONE LOAN SECRETARY/Reproductive: NOCTURNAL INCONTINENCE History of MRSA: No History of VRE: No History of CDIFF: No Isolation History: Standard Influenza Vaccine: 05/06/16 Surgical History Surgical History: laminectomy Past Family/Social History Family History Relations & Conditions if any SISTER FHx: heart failure MOTHER FHx: lung cancer Relation not specified for: *No pertinent family history Psychosocial History Where do you live? Home Services at Home: Home Health Aide, Nursing, Oxygen Primary Language: Greenlandic ETOH Use: denies use Illicit Drug Use: denies illicit drug use Living Will? no Functional Ability ADLs Independent: dressing, eating, toileting, bathing. Ambulation: cane IADLs Independent: shopping, housework, finances, food prep, telephone, transportation , medication admin. Review of Systems Review of Systems Constitutional: Reports: see HPI, malaise. Denies: weakness. EENTM: Denies: no symptoms. Cardiovascular: Denies: no symptoms. Respiratory: Reports: see HPI, short of breath, sputum production. GI: Reports: abdominal pain, bloating. Genitourinary: Denies: no symptoms. Musculoskeletal: Denies: no symptoms. Skin: Denies: no symptoms. Neurological/Psychological: Reports: see HPI, depressed, emotional problems. Hematologic/Endocrine: Denies: no symptoms. All Other Systems: Reviewed and Negative Exam & Diagnostic Data Last 24 Hrs of Vital Signs/I&O Vital Signs Date Time Temp Pulse Resp B/P B/P Pulse O2 O2 Flow FiO2 Mean Ox Delivery Rate 06/06 1214 93 144/75 06/06 0752 97.8 99 118/59 06/05 1942 98.1 89 117/70 06/05 1917 98.1 89 117/70 06/05 1712 100.3 95 19 124/73 95 Room Air 06/05 1617 99.5 06/05 1423 99.5 94 20 155/95 95 Room Air Intake & Output 06/06 1600 06/06 0800 06/06 0000 Intake Total Output Total Balance Patient 282 lb Weight Physical Exam General Appearance Alert, Oriented X3, Cooperative, No Acute Distress, middle- aged obese female in no acute distress although somewhat saddened anxious. Skin No Rashes, No Breakdown, No Significant Lesion HEENT Atraumatic, PERRLA, EOMI, Mucous Membr. moist/pink Neck Supple, No JVD, No thryomegaly, +2 Carotid Pulse wo Bruit Lymphatic Cervical nl Cardiovascular Regular Rate, Normal S1, Normal S2, No Murmurs, Gallops, Rubs Lungs Clear to Auscultation, Normal Air Movement, air entry is fairly good bilaterally and is completely clear without any bronchospasm. Abdomen Normal Bowel Sounds, Soft, No Hepatospenomegaly, No Masses, mild sensitivity and discomfort in epigastric area on deep palpation. Neurological Exam Findings: Normal Gait, Normal Speech, Strength at 5/5 X4 Ext, Normal Tone, Cranial Nerves 3-12 NL Cranial Nerves II through XII: Within normal limits and intact. Extremities No Clubbing, No Cyanosis, No Edema, No Tenderness/Swelling Assessment/Plan Assessment: This middle-aged female came in for increasing depression. She claims that she was taking her medication regularly and follows up with psychiatrist as outpatient but recently has been excessively depressed for no obvious reason. From medical standpoint she is fairly stable without any acute medical problem. Her COPD is under fairly good control and her oxygen saturation is above 95% on room air. Her admission blood work including a CBC electrolytes liver functions and renal functions are all within normal limits and acceptable and she does not require any specific medical workup or treatment at this time. She should be continued on her Advair or equivalent inhaler and we can use oxygen only if her oxygen saturation is less than 90 on a when necessary basis. As Ranked By This Provider Problem List: 1. Depression 2. Suicidal ideation 3. Bipolar 1 disorder 4. DEEPAK on CPAP 5. COPD (chronic obstructive pulmonary disease) Miscellaneous Miscellaneous Documentation Attending Case Discussed With: Gloria MARTINES,Lopez Primary Care Physician: Wesley Chen MD Patient sees these Specialists pulmonary Level of Patient Care: CLARE Smallwood Attending Review Statement Attending Statement Attending MD Statement: examined this patient, reviewed EMR data (avail), discussed with nursing Attending Assessment/Plan: This middle-aged obese female long-standing history of bipolar type depression is admitted again for increasing depression. From medical standpoint she has COPD and obstructive sleep apnea is and is on CPAP and oxygen at night. She is fairly stable from medical standpoint at this time and does not require any other specific workup or treatment and we can continue her Advair inhaler and use the Ventolin or albuterol on when necessary basis. There is no need for any other workup or treatment.
--- NOTE | 2017-06-06 13:49 | IP INCIDENTAL NOTE PSYCH ---
Incidental Note Notation: Message left at [facility] for Dr. Drew to call me.
[2017-06-06 15:42] VITALS: BP 135/66
--- NOTE | 2017-06-06 15:58 | SOCIAL WORKER TX PLAN PSYCH ---
Treatment Plan - Please Document: - Evidence that there is ongoing collaboration between - the patient and the interdisciplinary team, - including the patient's active participation and - responsibility for engaging in the treatment regimen, - and that the treatment plan is individualized and - relevant to the patient's conditions. - Treatment plan should reflect documentation indicating - that all active therapeutic efforts are included. Strengths/Capabilities: Pt has insight into symptoms and need for tx. Pt is compliant and is engaged in outpatient psychiatric treatment. Pt receives daily medication administration from a visiting nursing service. Has supportive friend. Physical Limitations (Interventions): Pt. is oxygen dependent and has back pain managed with medications. Pt is disabled and unable to work. Patient Identified Trmt Goals: "I may need a med change." Discharge Plan: Return home and return to clinical services at [facility] and [facility] with [facility] Problem/Goals #1 Problem #1: depression Goal (Short Term): Patient will explore medication changes to help manage depressive symptoms Goal (Group Home): patient will identify strengths and reasons her life is worth living. Interventions: Patient will be offered medication management with the psychiatrist. Patient will be offered groups on symptom management, coping skills, relaxation, accupuncture, goals group, focus group. Court Deputy will discuss strengths and resources for support. turn out worker will coordinate a family meeting and assist with aftercare planning. DSM5/PS Stressors/Medical Prob Diagnosis' (DSM 5, Stressors, Medical): Bipolar d/o depressed F25.1 multiple losses Current GAF: 20 Treatment Team - Responsibilities of members of the treatment team include: - Medication Management- MD or PACKAGE COLLECTOR - Medication Administration and Monitoring- Nurse - Group Therapy- Occupational Therapist - 1:1 Therapy,Disch Planning,family involvement-Court Deputy
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
[2017-06-06 19:53] VITALS: BP 136/54
[2017-06-07 08:01] VITALS: BP 130/60
--- NOTE | 2017-06-07 09:07 | SOCIAL WORKER PROG NOTE PSYCH ---
See Addendum Social Work Progress Note Progress Note Divine reported having a good night sleep. Feels tired today though. Mood continues to be up and down with periods of tearfulness. She talked about losses and stated "I don't feel loved." She used to have alot of emotional support from family and friends that are now gone. She is struggling with how to fill that void right now. She stated "I have to learn how to accept the way things are now." She keeps talking about how menopause is significantly impacting her mood and she hopes the doctor will speak with her gynocologist. We talked about reconnecting with [facility] as a d/c option. She reports that she has had alot of stuggles with the [facility] service and has cancelled many appts. because she can't get there. She asked if we could help her get a letter stating she needs their service, due to being on a bus line. I told her we could try and help with that. She said she doesn't feel she is getting enough support from her field case manager at [facility] (Lynne Newman). She reported that she doesn't call her or see her on a regular basis. She is wondering if she can have a different field case manager. Divine told me she feels "Fucked up, neurotic, and emtional." She hates the idea of being in the hospital right now. Emphasized that she is not ready to leave quite yet and we will see how she is doing over the weekend. Called [facility] and gave Gracia Bustamante an update. Asked if she would be able to return to symptom management [facility]? Gracia stated that should be fine. She gave an appt. for her to see Dr. Drew on 06/14 at 10:30am.
--- NOTE | 2017-06-07 10:18 | SOCIAL WORKER PROG NOTE PSYCH ---
Social Work Progress Note Progress Note Completed P review. Faxed [employer] cab request due to medical/psychiatric issues.
[2017-06-07 12:14] VITALS: BP 128/70
--- NOTE | 2017-06-07 15:46 | CP SOUTH PROGRESS NOTE PSYCH ---
Psych (Inpt) Progress Note Progress Note Include the following elements, when applicable: Involvement in the active treatment of the patient with behavioral observations of the patient and the patient's response to the treatment. Review of the ongoing treatment process in the context of the treatment plan. Indication of how multi-disciplinary staff members are carrying out the treatment plan. Plans for future interventions and recommendations for revision of the treatment plan. Liaison with other physicians/providers. Progress Note: Case and treatment plan discussed in team meeting. Staff reports that the patient has some underlying paranoia. She asked staff if they were talking about her. Still tearful and labile. Feels unloved. Family meeting is scheduled for Saturday at 3 PM with brother and stepfather. Patient seen at 1:06 PM with medical student. Patient was on the phone prior to meeting with us. Reports feeling a little better for some reason. She is tolerating increase in clozapine dose. Affect is calm and euthymic. Reports mood is okay but it has been up and down like a roller coaster ride. Rates sad mood 5/10. She is unable to rate anxiety, describing it as on and off. Denies feeling hopeless or helpless. Does feel worthless. Denies feeling guilty. Reports passive suicidal ideation but gives a safety promise. Denies active suicidal ideation. Denies homicidal ideation. Denies auditory and visual hallucinations. Reports paranoia, that people are laughing at her because she is overweight. Reports she slept very well last night. Describes appetite as getting better. Describes energy as "eh." Tolerating medications well. Anticipates family meeting with brother and stepfather on Saturday. Patient is in agreement with tentative discharge date of Saturday. IMPRESSION: Slow progress. Continue present treatment plan. Tegretol level will be drawn on Saturday morning. Await outcome of family meeting on Saturday. Ancitipate likely discharge on Saturday. Message was left for glove sewer, Dr. Cher Fisher, , to call me upon her return on Saturday.
[2017-06-07 16:02] VITALS: BP 127/67
[2017-06-07 19:55] VITALS: BP 133/61
[2017-06-08 07:39] VITALS: BP 136/72; BP 136/76
--- NOTE | 2017-06-08 11:09 | CP SOUTH PROGRESS NOTE PSYCH ---
Psych (Inpt) Progress Note Progress Note Include the following elements, when applicable: Involvement in the active treatment of the patient with behavioral observations of the patient and the patient's response to the treatment. Review of the ongoing treatment process in the context of the treatment plan. Indication of how multi-disciplinary staff members are carrying out the treatment plan. Plans for future interventions and recommendations for revision of the treatment plan. Liaison with other physicians/providers. Progress Note: Pt notes that she is "doing a lot better." She does not that things have been "up and down." She feels that many of her symptoms are 2/2 menapause. Overall, she wants to get estrogen patch. OBGYN concerned as hx of smoking but pt has not smoked in four months. Otherwise, pt spending much of her time drawing and coloring. Finds calming. Denies SI or HI. Current Medications Sig/Sandeep Start time Last Medication Dose Route Stop Time Status Admin Acetaminophen 650 MG .STK-MED ONE 06/07 2205 DC PO 06/07 2206 Acetaminophen 650 MG Q6P PRN 06/05 181 AC 06/08 PO 0826 Al Hydroxide/Mg 30 ML Q4-6 PRN PRN 06/05 1815 AC Hydroxide PO Albuterol Sulfate 2 PUF Q6P PRN 06/05 1830 AC INH Aripiprazole 10 MG AT BEDTIME 06/05 2199 AC 06/07 PO 2203 Aspirin Buffered 325 MG DAILY 06/06 1000 AC 06/08 PO 0823 Atorvastatin Calcium 40 MG 1700 06/06 1700 AC 06/07 PO 1616 Budesonide/ 2 PUF BID 06/05 2199 AC 06/08 Formoterol Fumarate INH 0824 Bupropion HCl 150 MG DAILY 06/06 1000 AC 06/08 PO 0823 Carbamazepine 200 MG BID 06/05 2199 AC 06/08 PO 0823 Clonazepam 0.5 MG BID 06/05 2199 AC 06/08 PO 06/12 2159 0826 Clonazepam 0.5 MG DAILY NEEDED PRN 06/05 1830 AC PO 06/12 1829 Clozapine 150 MG AT BEDTIME 06/06 220 AC 06/07 PO 2203 Cyanocobalamin 1,000 MCG DAILY 06/06 1000 AC 06/08 PO 0823 Escitalopram Oxalate 20 MG DAILY 06/06 1000 AC 06/08 PO 0823 Fluticasone 2 SPRAY DAILY PRN 06/05 1829 AC Propionate KM Furosemide 40 MG 7:30 AM, & 4:30 PM 06/06 0730 AC 06/08 PO 0822 Gabapentin 300 MG Q6P PRN 06/05 1814 AC PO Loratadine 10 MG DAILY 06/06 1000 AC 06/08 PO 0823 Magnesium Hydroxide 30 ML AT BEDTIME PRN 06/05 1814 AC PO Montelukast Sodium 10 MG AT BEDTIME 06/05 2199 AC 06/07 PO 220 Multivitamins 1 TAB DAILY 06/06 1000 AC 06/08 PO 0823 Nicotine 2 MG Q2P PRN 06/05 184 AC PO Olanzapine 10 MG Q12P PRN 06/05 1814 AC IM Omeprazole 40 MG DAILY AC 06/06 07 AC 06/08 PO 0657 Oxybutynin Chloride 2.5 MG BID 06/05 2199 AC 06/08 PO 08 Trazodone HCl 50 MG AT BEDTIME NEED.. 06/05 1814 AC PO Laboratory Tests 06/05 06/05 06/05 1835 1545 1148 Serology Virus Culture Pending Urines Urine Test Cancelled NEGATIVE 06/05 1113 Chemistry Sodium (137 - 145 mmol/L) 145 Potassium (3.5 - 5.1 mmol/L) 4.3 Chloride (98 - 107 mmol/L) 98 Carbon Dioxide (22 - 30 mmol/L) 32 H Anion Gap (5 - 16) 15 BUN (7 - 17 mg/dL) 10 Creatinine (0.5 - 1.0 mg/dL) 0.6 Estimated GFR (>60 ml/min) > 60 BUN/Creatinine Ratio (7 - 25 %) 16.7 Glucose (65 - 99 mg/dL) 106 H Calcium (8.4 - 10.2 mg/dL) 9.9 Total Bilirubin (0.2 - 1.3 mg/dL) 0.3 AST (14 - 36 U/L) 24 ALT (9 - 52 U/L) 41 Alkaline Phosphatase (<127 U/L) 141 H Total Protein (6.3 - 8.2 g/dL) 7.6 Albumin (3.5 - 5.0 g/dL) 4.6 Globulin (1.9 - 4.2 gm/dL) 3.0 Albumin/Globulin Ratio (1.1 - 2.2 %) 1.5 TSH &T3 &Free T4 Intrp (0.270 - 4.20 uIU/mL) 1.270 Hematology CBC w Diff NO MAN DIFF REQ WBC (4.8 - 10.8 /CUMM) 9.9 RBC (4.20 - 5.40 /CUMM) 4.44 Hgb (12.0 - 16.0 G/DL) 13.5 Hct (37 - 47 %) 40.0 MCV (81.0 - 99.0 FL) 90.1 MCH (27.0 - 31.0 PG) 30.4 MCHC (33.0 - 37.0 G/DL) 33.7 RDW (11.5 - 14.5 %) 13.7 Plt Count (130 - 400 /CUMM) 265 MPV (7.4 - 10.4 FL) 7.7 Gran % (42.2 - 75.2 %) 73.9 Lymphocytes % (20.5 - 51.1 %) 17.3 L Monocytes % (1.7 - 9.3 %) 7.0 Eosinophils % (0 - 5 %) 1.0 Basophils % (0.0 - 2.0 %) 0.8 Absolute Granulocytes (1.4 - 6.5 /CUMM) 7.3 H Absolute Lymphocytes (1.2 - 3.4 /CUMM) 1.7 Absolute Monocytes (0.10 - 0.60 /CUMM) 0.7 H Absolute Eosinophils (0.0 - 0.7 /CUMM) 0.1 Absolute Basophils (0.0 - 0.2 /CUMM) 0.1 Toxicology Carbamazepine (4.0 - 12.0 ug/mL) 6.7 Serum Alcohol (<10 MG/DL) < 10.0 Vital Signs Date Time Temp Pulse Resp B/P B/P Pulse O2 O2 Flow FiO2 Mean Ox Delivery Rate 06/08 0739 97.4 96 136/72 06/07 2250 88 98 06/07 1955 97.8 96 133/61 06/07 1602 96 127/67 06/07 1214 95 128/70 MSE General appearance: good hygiene and grooming; Attitude: cooperative; Eye contact: appropriate; Movement: no psychomotor agitation or slowing; Speech: nl fluency, nl rate/rhythm, nl volume, nl prosody; Mood: "much better" Affect: slightly sad, flat, appropriate, constricted, non-labile, congruent; Thought process: linear and goal-directed; Thought content: denied SI or HI, no paranoid ideation; Perception: denied hallucinations- auditory, visual, does not appear to be responding to internal stimuli; I/J: limited A/P: Pt with hx of SAD and PTSD now with improved mood. Per pt, Dr. Castro consulting with pts OBGYN as to next step as sx may be worsening 2/2 menupause. -Continue current medication regimen -Encourage integration into the milieu
[2017-06-08 11:50] VITALS: BP 119/81
[2017-06-08 16:03] VITALS: BP 129/60
[2017-06-08 19:07] VITALS: BP 141/74
[2017-06-09 07:34] VITALS: BP 131/87
[2017-06-09 12:06] VITALS: BP 133/74
--- NOTE | 2017-06-09 12:09 | CP SOUTH PROGRESS NOTE PSYCH ---
Psych (Inpt) Progress Note Progress Note Include the following elements, when applicable: Involvement in the active treatment of the patient with behavioral observations of the patient and the patient's response to the treatment. Review of the ongoing treatment process in the context of the treatment plan. Indication of how multi-disciplinary staff members are carrying out the treatment plan. Plans for future interventions and recommendations for revision of the treatment plan. Liaison with other physicians/providers. Progress Note: Pt notes that she was been reaching out to friends and family for support over the telephone. She finds this to be very helpful. Spoke at length about all the losses she has suffered and difficulties around menapause. Denies SI or HI. Current Medications Sig/Sandeep Start time Last Medication Dose Route Stop Time Status Admin Acetaminophen 650 MG .STK-MED ONE 06/08 2304 DC PO 06/08 230 Acetaminophen 650 MG Q6P PRN 06/05 1815 AC 06/09 PO 0903 Al Hydroxide/Mg 30 ML Q4-6 PRN PRN 06/05 1815 AC Hydroxide PO Albuterol Sulfate 2 PUF Q6P PRN 06/05 1830 AC INH Aripiprazole 10 MG AT BEDTIME 06/05 2200 AC 06/08 PO 2304 Aspirin Buffered 325 MG DAILY 06/06 1000 AC 06/09 PO 0901 Atorvastatin Calcium 40 MG 1700 06/06 1700 AC 06/08 PO 1632 Benzocaine/Menthol 1 JUDE Q2P PRN 06/09 1215 UNVr PO Budesonide/ 2 PUF BID 06/05 2200 AC 06/09 Formoterol Fumarate INH 0902 Bupropion HCl 150 MG DAILY 06/06 1000 AC 06/09 PO 0901 Carbamazepine 200 MG BID 06/05 2200 AC 06/09 PO 1011 Clonazepam 0.5 MG BID 06/05 2200 AC 06/09 PO 06/12 2159 0903 Clonazepam 0.5 MG DAILY NEEDED PRN 06/05 1830 AC PO 06/12 1829 Clozapine 150 MG AT BEDTIME 06/06 2200 AC 06/08 PO 2304 Cyanocobalamin 1,000 MCG DAILY 06/06 1000 AC 06/09 PO 0901 Escitalopram Oxalate 20 MG DAILY 06/06 1000 AC 06/09 PO 0901 Fluticasone 2 SPRAY DAILY PRN 06/05 1830 AC Propionate KM Furosemide 40 MG 7:30 AM, & 4:30 PM 06/06 0730 AC 06/09 PO 0901 Gabapentin 300 MG Q6P PRN 06/05 1815 AC PO Hydrocortisone 1 CATRACHO BID 06/09 1206 UNVr EXT Loratadine 10 MG DAILY 06/06 1000 AC 06/09 PO 0901 Magnesium Hydroxide 30 ML AT BEDTIME PRN 06/05 1815 AC PO Montelukast Sodium 10 MG AT BEDTIME 06/05 2200 AC 06/08 PO 2305 Multivitamins 1 TAB DAILY 06/06 1000 AC 06/09 PO 0901 Nicotine 2 MG Q2P PRN 06/05 1845 AC PO Olanzapine 10 MG Q12P PRN 06/05 1815 AC IM Omeprazole 40 MG DAILY AC 06/06 0700 AC 06/09 PO 0722 Oxybutynin Chloride 2.5 MG BID 06/05 2199 AC 06/09 PO 0901 Trazodone HCl 50 MG AT BEDTIME NEED.. 06/05 181 AC PO Laboratory Tests 06/09 0608 Toxicology Carbamazepine (4.0 - 12.0 ug/mL) 5.7 Vital Signs Date Time Temp Pulse Resp B/P B/P Pulse O2 O2 Flow FiO2 Mean Ox Delivery Rate 06/09 1206 96 133/74 / 0734 97.6 99 131/87 06/08 1907 98.9 98 141/74 97 / 1603 98 129/60 MSE General appearance: good hygiene and grooming; Attitude: cooperative; Eye contact: appropriate; Movement: no psychomotor agitation or slowing; Speech: nl fluency, nl rate/rhythm, nl volume, nl prosody; Mood: "having a hard time" Affect: slightly sad, tearful at times, flat, appropriate, constricted, non- labile, congruent; Thought process: linear and goal-directed; Thought content: denied SI or HI, no paranoid ideation; Perception: denied hallucinations- auditory, visual, does not appear to be responding to internal stimuli; I/J: limited A/P: Pt with hx of SAD and PTSD now with improved mood. Per pt, Dr. Castro consulting with pts OBGYN as to next step as sx may be worsening 2/2 menupause. -Continue current medication regimen - Would consider, if appropriate, desvenlafaxine given perimenapausal and having significant sx and may help with mood as well. -Encourage integration into the milieu
[2017-06-09 15:21] VITALS: BP 113/70
[2017-06-09 19:10] VITALS: BP 118/66
[2017-06-10 07:44] VITALS: BP 132/86
[2017-06-10 12:32] VITALS: BP 120/80
--- NOTE | 2017-06-10 15:50 | SOCIAL WORKER PROG NOTE PSYCH ---
Social Work Progress Note Progress Note Family meeting held with Divine, her Brother Milo, and StepFather. Dr. Castro attended part of this meeting as well. Talked about Divine's up and down moods. Divine is still very focused on connecting with her gynocologist to possibly start an estrogen patch. Talked about follow up at [facility] and how they are recommending that he go to some of their groups, but not [facility]. I told Divine we did submit the form for her to get service vs. taking a bus. We discussed her being involved with more activity out of the house. She said she is going to reconnect with AA. Family informed her that they love and support her and that she needs to move on from wallowing on what she doesn't have. Brother stated she needs to work on loving herself. Talked about continuing to work on weight loss and exercise. Family seems to be in agreement for her to leave tomorrow. Divine will call her friend Ed to pick her up late morning.
--- NOTE | 2017-06-10 16:03 | CP SOUTH PROGRESS NOTE PSYCH ---
Psych (Inpt) Progress Note Progress Note Include the following elements, when applicable: Involvement in the active treatment of the patient with behavioral observations of the patient and the patient's response to the treatment. Review of the ongoing treatment process in the context of the treatment plan. Indication of how multi-disciplinary staff members are carrying out the treatment plan. Plans for future interventions and recommendations for revision of the treatment plan. Liaison with other physicians/providers. Progress Note: Dr. Thompson's notes reviewed. Case and treatment plan discussed in team meeting. Staff reports that the patient has been a little tearful. Expressed concern about how family meeting today would go. Did not go to groups all weekend. Tegretol level on 06/09/17 was 5.7, reference range 4-12. Patient seen at 12:59 PM. States she is "still dealing with the menopause, up and down, up and down." Found it helpful to meet with location manager. Affect is calm and euthymic. Wants discharge tomorrow. Anticipating family meeting at 3 PM today. Rates sad mood 4-5/10. States anxiety is on and off, almost like a 10/ 10. Feeling less hopeless and worthless, stating "not as bad." Feels helpless "with this menopause." Denies feeling guilty. Denies active and passive suicidal ideation. Denies homicidal ideation. Denies auditory and visual hallucinations and paranoid ideation. Reports sleep is good and appetite is better now. Rates energy about 5/10, stating "I'm tired." Tolerating medications well, without complaint. Agrees to increase Tegretol dose to [address] Thompson discussed addition of desvenlafaxine. We will hold off on it for now, given plan to increase Tegretol now. Clozapine dose was increased to 150 mg nightly as of late last week. I spoke with Dr. Cher Fisher, supervisor yard. She would like to start the patient on an estrogen patch, but the patient is due for a Pap smear, so the patient should follow up with Dr. Fisher as an outpatient. Case discussed with Dr. Drew at [facility]. I updated her about medication changes. I attended family meeting with patient, brother, step father and Carmen Cunningham LCSW at around 3:20 PM. All questions were addressed. IMPRESSION: Slow progress. Continue present treatment plan. Anticipate discharge tomorrow to home. Patient will resume visiting nurse services within [facility]. Patient will return to be [facility] for follow-up. She will return to see Dr. Cher Fisher to discuss an estrogen patch for menopause.
[2017-06-10 16:05] VITALS: BP 122/72
[2017-06-10 20:06] VITALS: BP 141/80
[2017-06-11 07:52] VITALS: BP 122/78
[2017-06-11 08:01] LABS: ABSOLUTE BASOPHIL COUNT 0 /CUMM (0.0-0.2); ABSOLUTE EOSINOPHIL COUNT 0.2 /CUMM (0.0-0.7); ABSOLUTE GRANULOCYTE CT 6.1 /CUMM (1.4-6.5); ABSOLUTE LYMPH COUNT 2.1 /CUMM (1.2-3.4); ABSOLUTE MONOCYTE COUNT 0.7 /CUMM (0.10-0.60); BASOPHIL % 0.4 % (0.0-2.0); GRANULOCYTE % 67.1 % (42.2-75.2); HEMATOCRIT 39.1 % (37-47); MEAN CORPUSCULAR HGB 30.7 PG (27.0-31.0); MEAN CORPUSCULAR HGB CONC 33.7 G/DL (33.0-37.0); MEAN PLATELET VOLUME 8.2 FL (7.4-10.4); PLATELET COUNT 262 /CUMM (130-400); RBC DISTRIBUTION WIDTH 13.6 % (11.5-14.5); WHITE BLOOD CELL COUNT 9.1 /CUMM (4.8-10.8)
--- NOTE | 2017-06-11 08:41 | SOCIAL WORKER PROG NOTE PSYCH ---
See Addendum Social Work Progress Note Progress Note Met with Divine this morning. She reports feeling a little sedated. She thinks maybe from the med increases. Encouraged her to see how she feels in a few days and then speak to Dr. Drew on Saturday. She talked about her relationship with her Brother and how she wishes the best for him. She said he may come see her later today. She talked about how he told her she needs to work on loving herself. She said "I almost loved myself a long time ago." Talked about her strengths and how she has so many of them. She talked about feeling tired of having to work through her mental health issues and the disease of bipolar disorder. I reminded her that she has strength and that if she was able to quit smoking she can have the willpower to work through these issues. Confirmed that her friend is picking her up at 11am this morning. Called [facility] RN from [facility] [phone]. He will see Divine today. Meds should be called into [facility] in [place]. Called [facility] and let Gracia Bustamante know she was discharging today. She also provided a therapy appt. with Delma Rios for 06/21 1:30pm.
--- NOTE | 2017-06-11 08:43 | Patient Discharge Instructions ---
Psych Discharge Inst General Discharge Information Reason for Admission: Suicidal ideation. Hx of multiple losses (deaths). Low mood, feeling hopeless and helpless. Psy Discharge Primary Diag+ Schizoaffective d/o, bipolar type Psy Discharge Secondary Diag+ PTSD Morbid obesity COPD COSA Allergies Edema, treated with Lasix Asthma GERD IBS Chronic back pain Hyperlipidemia Elevated hemoglobin A1c Hx urinary problems Past hx of low Vit B12 Summary Tests/Major Procedures Lab AST 24 U/L 06/05/17 1113 BUN 10 mg/dL 06/05/17 1113 Calcium 9.9 mg/dL 06/05/17 1113 Carbon Dioxide 32 mmol/L H 06/05/17 1113 Chloride 98 mmol/L 06/05/17 1113 Cholesterol 201 MG/DL H 01/20/17 0635 Cholesterol/HDL Ratio 6 % H 01/20/17 0635 Creatinine 0.6 mg/dL 06/05/17 1113 Estimated GFR > 60 ml/min 06/05/17 1113 Glucose 106 mg/dL H 06/05/17 1113 HDL Cholesterol 36 mg/dL L 01/20/17 0635 Hemoglobin A1c 6.2 % H 01/20/17 0635 LDL Cholesterol Direct 124.27 mg/dL H 01/20/17 0635 LDL Cholesterol, Calc ND mg/dL 01/20/17 0635 Potassium 4.3 mmol/L 06/05/17 1113 Sodium 145 mmol/L 06/05/17 1113 TSH &T3 &Free T4 Intrp 1.270 uIU/mL 06/05/17 1113 Triglycerides 455 mg/dL H 01/20/17 0635 Absolute Granulocytes 6.1 /CUMM 06/11/17 0700 Absolute Monocytes 0.7 /CUMM H 06/11/17 0700 Gran % 67.1 % 06/11/17 0700 Hct 39.1 % 06/11/17 0700 Hgb 13.2 G/DL 06/11/17 0700 Plt Count 262 /CUMM 06/11/17 0700 WBC 9.1 /CUMM 06/11/17 0700 Virus Culture Pending 06/05/17 1545 Carbamazepine 6.7 ug/mL 06/05/17 1113 Carbamazepine 5.7 ug/mL 06/09/17 0608 Serum Alcohol < 10.0 MG/DL 06/05/17 1113 Urine Test NEGATIVE 06/05/17 1148 Patient : SAVANAH FOSTER Acct: [id number] DR: Lopez Castro MD Birthdate: [birth year] Age/Sex: 47/F Unit: [id number] Loc: [place] [address] Status : ADM IN SPEC #: [id number] JOSE: 06/05/171618 STATUS: COMP RECD: 06/05/[address]: Ben Vazquez DO SOURCE: NASOPHARYN ENTR: 06/05/17-[address]: April MARTINES,Wesley HORNEC: FORENSIC ANALYST ORDERED: QUIK FLU AB COMMENT: SPECIMEN RECV 1 HOUR AFTER COLLECTED PO Procedure Result > RAPID VIRAL INFLUENZA A/B Final 06/05/17 NEGATIVE FOR INFLUENZA A & B Note Rapid influenza diagnostic tests have low to moderate sensitivity compared to viral culture or RT-PCR. A negative result does not exclude influenza virus infection. If influenza is circulating in your community, a diagnosis of influenza should be considered based on patient's clinical presentation and empiric antiviral treatment should be considered, if indicated. FOR ER PATIENTS WHO ARE ADMITTED AND HEALTHCARE WORKERS, IF THE RAPID FLU IS NEGATIVE AND PATIENT HAS INFLUENZA LIKE ILLNESS, PLEASE CALL MICROBIOLOGY DEPT. [phone] FOR RT-PCR SENDOUT. PLEASE FOLLOW ISOLATION PRECAUTIONS FOR ALL SUSPECTED INFLUENZA CASES. Patient : SAVANAH FOSTER Acct: [id number] DR: Lopez Castro MD Birthdate: [birth year] Age/Sex: 47/F Unit: [id number] Loc: [place] [address] Status : ADM IN SPEC #: [id number] JOSE: 06/05/174 STATUS: COMP RECD: 06/05/[address]: Ben Vazquez DO SOURCE: URINE ROUT ENTR: 06/05/17-[address]: Wesley Chen MDC: URIN CLEAN ORDERED: URINE CULTURE COMMENT: TRIO Procedure Result > URINE CULTURE Final 06/06/17 MULTIPLE COLONY TYPES PRESENT CONSISTENT WITH CONTAMINATION. PLEASE RE-SUBMIT A CLEAN CATCH URINE IF SYMPTOMS PERSIST. EKG 06/05/17 showed sinus rhythm @ 85, nonspecific intraventricular condution delay, no significant change since prvious tracing, abnormal EKG. QT 380. QTc 452. Studies Pending at DC: Viral culture, 06/05/17. Patient Instructions Contact Information Your Psychiatrist on [facility] was Gloria MARTINES,Lopez * If you are experiencing an emergency related to this hospitalization, please call [phone] to contact the treating psychiatrist or the psychiatrist-on- call. * To Request a copy of your medical records, please contact the Medical Records Department at [phone]. * To request results of studies pending at the time of discharge, please call [phone]. * Continue your Medications until directed to stop by your Healthcare provider. General Medication Information Please continue to take your new medications and your continued home medications , unless otherwise indicated on your discharge medication list, or unless directed by your MD or COLLECTION COORDINATOR to stop them. Special Instructions Diet Heart Healthy Activity Normal Other Inst/Recommendations See PCP re: abnl labs/EKG, Dr. Fisher [facility]. Have Tegr. lvl checked - Tobacco Use Treatment Offered Post DC Medications Offered: Script Given-See Med List Post DC Tobacco Treatment Plan: Noel Tobacco Tx Pgm Program Appt Date: 06/12/17 Program Appt Time: 1600 - EtOH/Drug Use D/O Treatment Offered Post DC Medications Offered: NA-No EtOH/Drug Use D/O Post DC EtOH/SubAbuse TX Plan: NA-No EtOH/Drug Use D/O Metabolic Screening () Not Applicable, patient not on a neuroleptic. OR () Patient on a neuroleptic(s) . Enter below results for Hemoglobin A1C, and lipid panel if obtained during the last 365 days. BMI: 48.400 Blood Pressure: 122/78 Laboratory Results From [facility] (If applicable): Lab Cholesterol 201 MG/DL H 01/20/17 0635 Cholesterol/HDL Ratio 6 % H 01/20/17 0635 HDL Cholesterol 36 mg/dL L 01/20/17 0635 Hemoglobin A1c 6.2 % H 01/20/17 0635 LDL Cholesterol Direct 124.27 mg/dL H 01/20/17 0635 LDL Cholesterol, Calc ND mg/dL 01/20/17 0635 Triglycerides 455 mg/dL H 01/20/17 0635 Advance Directives Does the Patient have Medical Advance Directives No/Refused further info Does Pt have Psychiatric Advance Directives? No/Refused further info Does Patient have a Designated Surrogate Decision Maker: No Information About Psychiatric Advance Directives Provided? Yes Discharge Plan Post Hospital Treatment Plan: Dr. Rajendra Castrejon.
[2017-06-11] MEDS ORDERED: FLUTICASONE PRO16 GM NAS (08:58)
[2017-06-11] MEDS ORDERED: CLOZAPINE50 M1 PO (08:58)
[2017-06-11] MEDS ORDERED: NICORELIEF2 MG PO (08:58)
[2017-06-11] MEDS ORDERED: CARBAMAZEPINE100 M2 PO (08:58)
--- NOTE | 2017-06-11 10:34 | SOCIAL WORKER PROG NOTE PSYCH ---
Social Work Progress Note Faxed Referral(s) 1 Referred To: [facility] Transition of Care Documents sent: Health Summary, W10 Faxed to: [facility] Fax #: [phone] Faxed by: Carmen Cunningham Date faxed: 06/11/17 Time Faxed: [phone] Faxed Referral(s) 2 Referred To: [facility] Transition of Care Documents sent: Health Summary, W10 Faxed to: Care Fax #: [phone] Faxed by: Carmen Cunningham Date faxed: 06/11/17 Time Faxed: [phone]
--- NOTE | 2017-06-11 15:44 | CP SOUTH PROGRESS NOTE PSYCH ---
Psych (Inpt) Progress Note Progress Note Include the following elements, when applicable: Involvement in the active treatment of the patient with behavioral observations of the patient and the patient's response to the treatment. Review of the ongoing treatment process in the context of the treatment plan. Indication of how multi-disciplinary staff members are carrying out the treatment plan. Plans for future interventions and recommendations for revision of the treatment plan. Liaison with other physicians/providers. Progress Note: Patient seen at 9:09 a.m. Appears awake and alert. Feels okay, pretty good. Randolph a little over-medicated earlier this morning but the feeling improved after breakfast. She is feeling less labile. Affect is calm and blunted. Sad 5/10. Anxiety 5/10. Denies feeling hopeless. Feels helpless a little bit, worthless a little bit and guilty a little bit. Denies active and passive SI, HI, AH, VH and PI. Sleep: good. Appetite: alright. Energy: "eh, like a 5 [out of 10] right now." Tolerating medications well, without complaint. Feels ready and safe for discharge. IMPRESSION: Condition improved. okay for discharge today to home with follow up at [facility] and with visiting nurse.
--- NOTE | 2017-06-11 15:53 | DISCHARGE SUMMARY REPORT-PSYCH ---
Visit Information Visit Dates/Diagnosis' Admission Date: 06/05/17 Discharge Date: 06/11/17 Reason for Admission: Suicidal ideation. Hx of multiple losses (deaths). Low mood, feeling hopeless and helpless. Psy Discharge Primary Diag: Schizoaffective d/o, bipolar type Psy Discharge Secondary Diag: PTSD Morbid obesity COPD COSA Allergies Edema, treated with Lasix Asthma GERD IBS Chronic back pain Hyperlipidemia Elevated hemoglobin A1c Hx urinary problems Past hx of low Vit B12 Hospital Course Significant Lab Findings: Lab AST 24 U/L 06/05/17 1113 BUN 10 mg/dL 06/05/17 1113 Calcium 9.9 mg/dL 06/05/17 1113 Carbon Dioxide 32 mmol/L H 06/05/17 1113 Chloride 98 mmol/L 06/05/17 1113 Cholesterol 201 MG/DL H 01/20/17 0635 Cholesterol/HDL Ratio 6 % H 01/20/17 0635 Creatinine 0.6 mg/dL 06/05/17 1113 Estimated GFR > 60 ml/min 06/05/17 1113 Glucose 106 mg/dL H 06/05/17 1113 HDL Cholesterol 36 mg/dL L 01/20/17 0635 Hemoglobin A1c 6.2 % H 01/20/17 0635 LDL Cholesterol Direct 124.27 mg/dL H 01/20/17 0635 LDL Cholesterol, Calc ND mg/dL 01/20/17 0635 Potassium 4.3 mmol/L 06/05/17 1113 Sodium 145 mmol/L 06/05/17 1113 TSH &T3 &Free T4 Intrp 1.270 uIU/mL 06/05/17 1113 Triglycerides 455 mg/dL H 01/20/17 0635 Absolute Granulocytes 6.1 /CUMM 06/11/17 0700 Absolute Monocytes 0.7 /CUMM H 06/11/17 0700 Gran % 67.1 % 06/11/17 0700 Hct 39.1 % 06/11/17 0700 Hgb 13.2 G/DL 06/11/17 0700 Plt Count 262 /CUMM 06/11/17 0700 WBC 9.1 /CUMM 06/11/17 0700 Virus Culture Pending 06/05/17 1545 Carbamazepine 6.7 ug/mL 06/05/17 1113 Carbamazepine 5.7 ug/mL 06/09/17 0608 Serum Alcohol < 10.0 MG/DL 06/05/17 1113 Urine Test NEGATIVE 06/05/17 1148 Patient : SAVANAH FOSTER Acct: [id number] DR: Lopez Castro MD Birthdate: [birth year] Age/Sex: 47/F Unit: [id number] Loc: [place] [address] Status : ADM IN SPEC #: [id number] JOSE: 06/05/171618 STATUS: COMP RECD: 06/05/[address]: Ben Vazquez DO SOURCE: NASOPHARYN ENTR: 06/05/17-[address]: April MARTINES,W[place] SPDESC: GRIEF COUNSELOR ORDERED: QUIK FLU AB COMMENT: SPECIMEN RECV 1 HOUR AFTER COLLECTED PO Procedure Result > RAPID VIRAL INFLUENZA A/B Final 06/05/17 NEGATIVE FOR INFLUENZA A & B Note Rapid influenza diagnostic tests have low to moderate sensitivity compared to viral culture or RT-PCR. A negative result does not exclude influenza virus infection. If influenza is circulating in your community, a diagnosis of influenza should be considered based on patient's clinical presentation and empiric antiviral treatment should be considered, if indicated. FOR ER PATIENTS WHO ARE ADMITTED AND HEALTHCARE WORKERS, IF THE RAPID FLU IS NEGATIVE AND PATIENT HAS INFLUENZA LIKE ILLNESS, PLEASE CALL MICROBIOLOGY DEPT. [phone] FOR RT-PCR SENDOUT. PLEASE FOLLOW ISOLATION PRECAUTIONS FOR ALL SUSPECTED INFLUENZA CASES. Patient : SAVANAH FOSTER Acct: [id number] DR: Lopez Castro MD Birthdate: [birth year] Age/Sex: 47/F Unit: [id number] Loc: [place] [address] Status : ADM IN SPEC #: [id number] JOSE: 06/05/171104 STATUS: COMP RECD: 06/05/[address]: Ben Vazquez DO SOURCE: URINE ROUT ENTR: 06/05/17-[address]: Wesley Chen MD SPDESC: URIN CLEAN ORDERED: URINE CULTURE COMMENT: TRIO Procedure Result > URINE CULTURE Final 06/06/17 MULTIPLE COLONY TYPES PRESENT CONSISTENT WITH CONTAMINATION. PLEASE RE-SUBMIT A CLEAN CATCH URINE IF SYMPTOMS PERSIST. EKG 06/05/17 showed sinus rhythm @ 85, nonspecific intraventricular condution delay, no significant change since prvious tracing, abnormal EKG. QT 380. QTc 452. Studies Pending at [facility]: Viral culture, 06/05/17. Course Complications: None. Consultations: The patient was seen for admission H&P by Dr. Isai Israel. He noted: "Assessment: This middle-aged female came in for increasing depression. She claims that she was taking her medication regularly and follows up with psychiatrist as outpatient but recently has been excessively depressed for no obvious reason. From medical standpoint she is fairly stable without any acute medical problem. Her COPD is under fairly good control and her oxygen saturation is above 95% on room air. Her admission blood work including a CBC electrolytes liver functions and renal functions are all within normal limits and acceptable and she does not require any specific medical workup or treatment at this time. She should be continued on her Advair or equivalent inhaler and we can use oxygen only if her oxygen saturation is less than 90 on a when necessary basis." Allergies: Coded Allergies: amoxicillin (From Augmentin) (Intermediate, SICK - VOMITING 02/03/16) clavulanic acid (From Augmentin) (Intermediate, SICK - VOMITING 02/03/16) lithium (Intermediate, SICK - NAUSEA, DIARRHEA, VOMITING 02/03/16) Sulfa (Sulfonamide Antibiotics) (BAD RASH ALL OVER BODY 02/03/16) erythromycin base (R/O ERYTHROMYCIN (PER DR. Thomas KULKARNI MD) 02/03/16) haloperidol (From Haldol) (PER PT GETS OUT OF IT, DOESNT MOVE 02/03/16) morphine (PER PT DIDNT LIKE THE WAY IT MADE HER FEEL 02/03/16) Hospital Course/TX Response: The patient was monitored on the unit for safety and mood disorder. There was no evidence of psychosis. She participated in multi-modal treatments on the unit. Home medications were continued (or substitute for equivalents, if non- formulary). CPAP was continued. Clozapine dose was increased to 150 mg qhs. Tegretol level was therapeutic but in the low range, so dose was increased to 300 mg b.i.d. Patient will need a repeat Tegretol level as an outpatient. Dr. Cher Doss, INFORMATION CLERK, is considering addition of an estrogen patch for moods related to menopause. [facility], Dr. Thompson, recommended consideration of a trial of desvenlafaxine. Mood and affect have improved. SI has remitted. Patient reported a reduction in mood lability. Progress note from date of discharge, 06/11/17: Patient seen at 9:09 a.m. Appears awake and alert. Feels okay, pretty good. [place] a little over-medicated earlier this morning but the feeling improved after breakfast. She is feeling less labile. Affect is calm and blunted. Sad 5/10. Anxiety 5/10. Denies feeling hopeless. Feels helpless a little bit, worthless a little bit and guilty a little bit. Denies active and passive SI, HI, AH, VH and PI. Sleep: good. Appetite: alright. Energy: "eh, like a 5 [out of 10] right now." Tolerating medications well, without complaint. Feels ready and safe for discharge. IMPRESSION: Condition improved. okay for discharge today to home with follow up at [facility] and with visiting nurse. Discharge HBIPS - Tobacco Use Treatment Offered Post DC Medications Offered: Script Given-See Med List Post DC Tobacco Treatment Plan: [facility] Tobacco Tx Pgm Program Appt Date: 06/12/17 Program Appt Time: 1600 - EtOH/Drug Use D/O Treatment Offered Post DC Medications Offered: NA-No EtOH/Drug Use D/O Post DC EtOH/SubAbuse TX Plan: NA-No EtOH/Drug Use D/O Metabolic Screening - Screen if on a Neuroleptic Medication - Metabolic screening should include: - Blood Pressure, BMI, Glucose or Hgb A1c, & a - Lipid profile from within the past 365 days. Metabolic Screening () Not Applicable, patient not on a neuroleptic. OR () Patient on a neuroleptic(s) . Enter below results for Hemoglobin A1C, and lipid panel if obtained during the last 365 days. BMI: 48.400 Blood Pressure: 122/78 Laboratory Results From [facility] (If applicable): [x] Lab Cholesterol 201 MG/DL H 01/20/17 0635 Cholesterol/HDL Ratio 6 % H 01/20/17 0635 HDL Cholesterol 36 mg/dL L 01/20/17 0635 Hemoglobin A1c 6.2 % H 01/20/17 0635 LDL Cholesterol Direct 124.27 mg/dL H 01/20/17 0635 LDL Cholesterol, Calc ND mg/dL 01/20/17 0635 Triglycerides 455 mg/dL H 01/20/17 0635 Discharge Instructions General Discharge Information Multiple Neuroleptics: () Not Applicable OR Document below three failed attempts at monotherapy, or a plan to taper to monotherapy, or augmentation of Clozapine. ([x]) AUGMENTATION OF CLOZAPINE. Discharge Diet Heart Healthy Discharge Activity Normal DC Disposition: Returning to home. Referrals Ordered Referrals Provider Referral 06/14/17 For Groups: [[facility] Dr[facility] Drew] [facility] appt. with Dr. Drew 06/14/17 10:30am [address] [place] [address] Provider Referral For Groups: [[facility]] [facility] appt. with Delma Rios (clinician) 06/21/17 1:30pm [address] [place] [address] Provider Referral 06/11/17 For Groups: [[facility]] [facility] for daily medication administration 06/11/17 to be seen this afternoon. Provider Referral 06/17/17 For Groups: [Dr. Selam ELLIS] Appt. with Dr. Cher ELLIS 06/17/[address] [place], [place] [phone] Prescriptions Stop taking the following medications: Clozapine (Clozaril) 100 MG TABLET ORAL Every night Clozapine (Clozaril) 25 MG TABLET ORAL Every night Qty = 28 Albuterol Sulfate (Albuterol Sulfate) 2.5 MG/3 ML (0.083 %) VIAL.NEB Inhale Solution TWICE DAILY as needed for SOB Carbamazepine (Tegretol) 200 MG TABLET ORAL 0800,2200 Qty = 28 Nicotine (Nicoderm Cq) 21 MG/24 HOUR PATCH.TD24 On the skin DAILY Continue taking these medications: Albuterol Sulfate (Proair Hfa) 90 MCG HFA.AER.AD 2 Puff Inhale through mouth EVERY SIX HOURS NEEDED as needed for COPD Comments: Last Taken: 06/11/17 Time: 0830 Cyanocobalamin (Vitamin B-12) 1,000 MCG TABLET 1 Tablet ORAL DAILY Comments: Last Taken:06/11/17 Time:0830 Pantoprazole Sodium (Protonix) 20 MG TABLET. 1 Tablet ORAL TWICE DAILY Comments: Last Taken:06/11/17 Time:0600 PRILOSEC GIVEN WHILE IN HOSPITAL Solifenacin Succinate (Vesicare) 5 MG TABLET 1 Tablet ORAL DAILY Comments: Last Taken:06/11/17 Time:0830 OXYBUTIN GIVEN WHILE HOSPITALIZED Rosuvastatin Calcium (Crestor) 10 MG TABLET 1 Tablet ORAL DAILY Qty = 30 Comments: Last Taken:06/10/17 Time:1600 LIPITOR GIVEN WHILE HOSPITALIZED Fluticasone/Salmeterol (Advair 250-50 Diskus) 250 MCG-50 MCG/DOSE BLST.W.DEV 1 Puff Inhale through mouth TWICE DAILY Qty = 60 Comments: Last Taken:USED SYMBICORT IN THE HOSPITAL Time: Aspirin (Ecotrin*) 325 MG TABLET.DR 1 Tablet ORAL DAILY Comments: Last Taken:06/11/17 Time:0830 Furosemide (Lasix) 40 MG TABLET 1 Tablet ORAL TWICE DAILY Comments: Last Taken:06/11/17 Time:0830 Levocetirizine Dihydrochloride (Xyzal) 5 MG TABLET 1 Tablet ORAL DAILY Comments: Last Taken:USED CLARITIN IN THE HOSPITAL Time:0830 Multivitamin (Multi-Vitamin Daily) 1 EACH TABLET 1 Tablet ORAL DAILY Comments: Last Taken:06/11/17 Time:0830 Montelukast Sodium (Montelukast Sodium) 10 MG TABLET 1 Tablet ORAL DAILY Comments: Last Taken:06/10/17 Time:2200 Clonazepam (Klonopin) 0.5 MG TABLET 0.5 Milligram ORAL 0800,2200 Qty = 42 Instructions: take one tablet twice a day and one tablet as needed for panic anxiety (maximum of 3 tablets/day) Comments: Last Taken:06/11/17 Time:0830 Bupropion HCl (Bupropion HCl Sr) 150 MG TABLET.ER 150 Milligram ORAL DAILY @8 AM Qty = 14 Comments: Last Taken:06/11/17 Time:0830 Escitalopram Oxalate (Lexapro) 10 MG TABLET 20 Milligram ORAL 1000 Qty = 14 Comments: Last Taken:06/11/17 Time:0830 Aripiprazole (Abilify) 10 MG TABLET 10 Milligram ORAL 2200 Qty = 14 Comments: Last Taken:06/10/17 Time:2200 Acetaminophen (Acetaminophen 8 Hour) 650 MG TABLET.ER 2 Tablet ORAL TWICE DAILY as needed for PAIN Triamcinolone Acetonide (Triamcinolone Acetonide) 0.1 % CREAM..G. 1 Application On the skin TWICE DAILY Comments: Last Taken:06/11/17 Time:0830 Start taking the following new medications: Nicotine (Nicorelief) 2 MG GUM 2 Milligram ORAL EVERY 2 HOURS NEEDED as needed for nicotine craving Qty = 70 No Refills Comments: Last Taken: Time:NOT USED IN THE HOSPITAL Carbamazepine (Carbamazepine) 100 MG TAB.CHEW 3 Tablet ORAL TWICE DAILY Qty = 84 No Refills Comments: Last Taken:06/10/17 Time:2200 Fluticasone Propionate (Fluticasone Propionate) 50 MCG/ACTUATION SPRAY.SUSP 2 [place] In the nose DAILY as needed for nasal congestion Qty = 1 No Refills Comments: Last Taken:06/10/17 Time:1400 Clozapine (Clozapine) 50 MG TABLET 3 Tablet ORAL AT BEDTIME Qty = 42 No Refills Comments: Last Taken:06/10/17 AT 2200 Time:CBC at [facility] 06/11/17: WBC 9.1, abs gran 6.1/CUMM Other Inst/Recommendations See PCP re: abnl labs/EKG, Dr. Fisher abt [facility]. Have Tegr. lvl checked Copies To: Rajendra MARTINES,Paty; Selam MARTINES,Cher
--- NOTE | 2017-06-13 11:45 | IP INCIDENTAL NOTE PSYCH ---
Incidental Note Notation: Call returned to patient. Reports dizziness on Tegretol 300 mg b.i.d. She has an appointment with Dr. Drew tomorrow. I recommened she reduce dose to 200 mg b.i.d. and speak with Dr. Drew about it tomorrow.
== END 2017-06-11 10:51 | DRG 885 ==
LOC: ERH 09:56 → ERHI 17:59 → CP SOUTH 17:59 → ENTRNSPT 18:56 → CP SOUTH 19:04 → EDTRNSPTSTS 19:06 → CMPTRNSPT 19:06 → ENRESERV 23:59 → CP SOUTH 06-07 12:50
PROVIDERS: Emergency Medicine; Psychiatry & Neurology Psychiatry
DX: F25.0 Schizoaffective disorder, bipolar type (principal); E66.01 Morbid (severe) obesity due to excess calories; F43.10 Post-traumatic stress disorder, unspecified; J44.9 Chronic obstructive pulmonary disease, unspecified; K21.9 Gastro-esophageal reflux disease without esophagitis; E78.5 Hyperlipidemia, unspecified; G89.29 Other chronic pain; M54.9 Dorsalgia, unspecified; R60.9 Edema, unspecified; K58.9 Irritable bowel syndrome, unspecified
CPT/HCPCS: 36415; 80307; 81025; 87086; 87804; 87804-59; 93005; 93010; G0480; J0401; J3490

== ENCOUNTER 2017-08-07 15:39 | Emergency (ER) | payer OTHER ==
[~2017-08-07] VITALS: Ht 152.4 cm; Wt 127.0 kg
[~2017-08-07 15:39] MED LIST changes: +ACETAMINOPHEN650 M4 PO; +CARBAMAZEPINE100 M2 PO; +CLOZAPINE50 M1 PO; +FLUTICASONE PRO16 GM NAS; +NICODERM CQ1 EAC2 TOP; +NICORELIEF2 MG PO; +TRIAMCINOLONE A15 G1 TOP
[2017-08-07 16:29] LABS: ABSOLUTE BASOPHIL COUNT 0 /CUMM (0.0-0.2); ABSOLUTE EOSINOPHIL COUNT 0.2 /CUMM (0.0-0.7); ABSOLUTE GRANULOCYTE CT 3.7 /CUMM (1.4-6.5); ABSOLUTE LYMPH COUNT 1.1 /CUMM (1.2-3.4); ABSOLUTE MONOCYTE COUNT 0.6 /CUMM (0.10-0.60); BASOPHIL % 0.1 % (0.0-2.0); EOSINOPHIL % 3.2 % (0-5); GRANULOCYTE % 65.6 % (42.2-75.2); HEMATOCRIT 39.2 % (37-47); MEAN CORPUSCULAR HGB 30.3 PG (27.0-31.0); MEAN CORPUSCULAR HGB CONC 33.5 G/DL (33.0-37.0); MEAN CORPUSCULAR VOLUME 90.4 FL (81.0-99.0); MEAN PLATELET VOLUME 8.2 FL (7.4-10.4); PLATELET COUNT 225 /CUMM (130-400); RED BLOOD CELL CT 4.34 /CUMM (4.20-5.40); WHITE BLOOD CELL COUNT 5.6 /CUMM (4.8-10.8)
--- NOTE | 2017-08-07 16:53 | ED GI/GU/ABDOMINAL COMPLAINT ---
History of Present Illness General Chief Complaint: General Adult Stated Complaint: FLU LIKE SYMPTOMS/DIARRHEA X3 DAYS Source: patient, old records Exam Limitations: no limitations Vital Signs & Intake/Output Vital Signs & Intake/Output Vital Signs Date Time Temp Pulse Resp B/P B/P Pulse O2 O2 Flow FiO2 Mean Ox Delivery Rate 08/07 1830 98.2 68 20 145/84 97 Room Air 08/07 1549 96 Room Air 08/07 1548 98.7 100 19 170/77 96 Room Air Allergies Coded Allergies: amoxicillin (From Augmentin) (Intermediate, SICK - VOMITING 02/03/16) clavulanic acid (From Augmentin) (Intermediate, SICK - VOMITING 02/03/16) lithium (Intermediate, SICK - NAUSEA, DIARRHEA, VOMITING 02/03/16) Sulfa (Sulfonamide Antibiotics) (BAD RASH ALL OVER BODY 02/03/16) erythromycin base (R/O ERYTHROMYCIN (PER DR. Thomas KULKARNI MD) 02/03/16) haloperidol (From Haldol) (PER PT GETS OUT OF IT, DOESNT MOVE 02/03/16) morphine (PER PT DIDNT LIKE THE WAY IT MADE HER FEEL 02/03/16) Reconcile Medications Acetaminophen (Acetaminophen 8 Hour) 650 MG TABLET.ER 2 TAB PO BID PRN PAIN ( Reported) Albuterol Sulfate (Proair Hfa) 90 MCG HFA.AER.AD 2 PUF INH Q6P PRN COPD ( Reported) Aripiprazole (Abilify) 10 MG TABLET 10 MG PO 2200 stabilie moods/clarify thought Aspirin (Ecotrin*) 325 MG TABLET.DR 1 TAB PO DAILY HEART/BLOOD (Reported) Bupropion HCl (Bupropion HCl Sr) 150 MG TABLET.ER 150 MG PO 0800 anti- depressant Carbamazepine 100 MG TAB.CHEW 3 TAB PO BID mood stabilizer Clonazepam (Klonopin) 0.5 MG TABLET 0.5 MG PO 0800,2200 panic anxiety take one tablet twice a day and one tablet as needed for panic anxiety (maximum of 3 tablets/day) Clozapine 50 MG TABLET 3 TAB PO AT BEDTIME to clear thoughts Cyanocobalamin (Vitamin B-12) 1,000 MCG TABLET 1 TAB PO DAILY SUPPLEMENT ( Reported) Dicyclomine HCl 10 MG CAPSULE 1 CAP PO TID abd pain Escitalopram Oxalate (Lexapro) 10 MG TABLET 20 MG PO 1000 anti-depressant Fluticasone Propionate 50 MCG/ACTUATION SPRAY.SUSP 2 SPRAY KM DAILY PRN nasal congestion Fluticasone/Salmeterol (Advair 250-50 Diskus) 250 MCG-50 MCG/DOSE BLST.W.DEV 1 PUF INH BID BREATHING PROBLEMS (Reported) Furosemide (Lasix) 40 MG TABLET 1 TAB PO BID DIURETIC (Reported) Levocetirizine Dihydrochloride (Xyzal) 5 MG TABLET 1 TAB PO DAILY ALLERGIES ( Reported) Montelukast Sodium 10 MG TABLET 1 TAB PO DAILY ALLERGIES/RESP. (Reported) Multivitamin (Multi-Vitamin Daily) 1 EACH TABLET 1 TAB PO DAILY SUPPLEMENT ( Reported) Nicotine (Nicorelief) 2 MG GUM 2 MG PO Q2P PRN nicotine craving Ondansetron (Zofran Odt) 4 MG TAB.RAPDIS 1 TAB SL TID nausea Pantoprazole Sodium (Protonix) 20 MG TABLET.DR 1 TAB PO BID GI (Reported) Rosuvastatin Calcium (Crestor) 10 MG TABLET 1 TAB PO DAILY HPL (Reported) Solifenacin Succinate (Vesicare) 5 MG TABLET 1 TAB PO DAILY BLADDER HEALTH ( Reported) Triamcinolone Acetonide 0.1 % CREAM..G. 1 CATRACHO TOP BID AFFECTED AREA(S) - SKIN (Reported) Triage Note: 47 Y/0 BIBA FROM HOME FOR FLU LIKE SYMPTOMS, AND DIARRHEA SINCE SATURDAY. PT STS SHE WAS SEEN HERE BY DR. PATEL ON SAT AND THAT IS WHEN SHE STARTED WITH HER SX. PT DENIES ANY OTHER PAIN OR DISCOMFORT AND STS NO PAIN AT PRESENT, JUST SICK TO HER STOMACH Triage Nurses Notes Reviewed? yes ? n Is pt currently ? No Onset: Abrupt Duration: day(s): Activities at Onset: none HPI: Pt is a 47 yo WF with a PMH of COPD, bipolar disorder who presents with a CC of diarrhea. She states the diarrhea began 2 days ago accompanied by generalized myalgias, intermittent fevers/chills, nausea, malaise, cough. She also reports decreased oral intake as it directly results in an episode of diarrhea. She denies any SOB/WEINSTIEN, CP, abdominal pain, melena/hematochezia, hematemesis, sore throat. She denies sick contacts. She denies any new dietary changes or recent medications/antibiotics. She has received the flu vaccine. (Renzo Amador) Past History Travel History Traveled to [place] past 21 day No Medical History Any Pertinent Medical History? see below for history Neurological: NONE EENT: allergies Cardiovascular: edema (on Lasix) Respiratory: bronchitis, COPD Gastrointestinal: GERD, irritable bowel syndrome, reflux Hepatic: NONE Renal: NONE Musculoskeletal: chronic back pain, falls, sciatica Psychiatric: anxiety, bipolar disease, chronic pain disorder, depression, schizo affective disorder, substance abuse (alcohol/cocaine--in remission), PTSD Endocrine: obesity (gained 100+ lbs. in 4 years) Blood Disorders: NONE Cancer(s): NONE PIECER UP/Reproductive: NOCTURNAL INCONTINENCE History of MRSA: No History of VRE: No History of CDIFF: No Influenza Vaccine: 01/18/17 Surgical History Surgical History: laminectomy Psychosocial History Who do you live with Patient/Self Services at Home Home Health Aide, Nursing, Oxygen What is your primary language Palauan Tobacco Use: Current Daily Use Daily Tobacco Use Amount/Type: =< 4 Cigarettes daily ETOH Use: denies use Illicit Drug Use: denies illicit drug use Family History Family History, If Any: SISTER FHx: heart failure MOTHER FHx: lung cancer Relation not specified for: *No pertinent family history Hx Contributory? No (Renzo Amador) Review of Systems Review of Systems Constitutional: Reports: see HPI. EENTM: Denies: no symptoms. Respiratory: Reports: see HPI. Cardiovascular: Reports: peripheral edema (longstanding LE edema). Denies: see HPI. GI: Reports: see HPI, diarrhea, nausea, changes in stool. Denies: abdominal pain, melena, bloody stool, vomiting. Genitourinary: Denies: see HPI. Musculoskeletal: Denies: see HPI. Skin: Denies: see HPI. Neurological/Psychological: Denies: see HPI. Hematologic/Endocrine: Denies: see HPI. Immunologic/Allergic: Reports: no symptoms. All Other Systems: Reviewed and Negative (Renzo Amador) Physical Exam Physical Exam General Appearance: no apparent distress, alert, awake, comfortable, obese Head: atraumatic, normal appearance Eyes: Bilateral: PERRL, EOMI. Ears, Nose, Throat, Mouth: hearing grossly normal Neck: normal inspection Respiratory: no respiratory distress, wheezing (throughout all lung perez) Cardiovascular: regular rate/rhythm Gastrointestinal: normal bowel sounds, soft, non-tender, no organomegaly, obese, no guarding, no masses, no discolorations, soft, NTTP Back: normal inspection Extremities: normal range of motion Neurologic/Psych: no motor/sensory deficits, awake, alert Skin: intact (warm, moist) Core Measures ACS in differential dx? No Sepsis Present: No Sepsis Focused Exam Completed? No (Will TEE,Renzo) Progress Differential Diagnosis: appendicitis, bowel obstruction, diverticulitis, gastritis, peptic ulcer, PUD/GERD, SBO, Gastroenteritis Plan of Care: Orders Procedure Date/time Status RAPID VIRAL INFLUENZA A 08/07 1609 Complete URINALYSIS 08/07 1609 Complete TROPONIN LEVEL 08/07 1609 Complete LIPASE 08/07 1609 Complete LACTIC ACID 08/07 161 Complete COMPREHENSIVE METABOLIC PANEL 08/07 161 Complete CBC WITHOUT DIFFERENTIAL 08/07 1609 Complete EKG 08/07 161 Active Laboratory Tests 08/07/17 1910: Lactic Acid Cancelled 08/07/17 1655: Urine Color YEL, Urine Clarity CLEAR, Urine pH 6.0, Ur Specific Celeste 1.020, Urine Protein NEG, Urine Ketones NEG, Urine Nitrite NEG, Urine Bilirubin NEG, Urine Urobilinogen 0.2, Ur Leukocyte Esterase NEG, Ur Microscopic EXAM NOT REQUIRED, Urine Hemoglobin NEG, Urine Glucose NEG 08/07/17 1616: Anion Gap 12, Estimated GFR > 60, BUN/Creatinine Ratio 18.0, Glucose 118 H, Lactic Acid 0.8, Calcium 9.2, Total Bilirubin 0.3, AST 38 H, ALT 53 H, Alkaline Phosphatase 125, Troponin I < 0.01, Total Protein 6.6, Albumin 3.9, Globulin 2.7, Albumin/Globulin Ratio 1.4, Lipase 136, CBC w Diff NO MAN DIFF REQ , RBC 4.34, MCV 90.4, MCH 30.3, MCHC 33.5, RDW 14.0, MPV 8.2, Gran % 65.6, Lymphocytes % 20.1 L, Monocytes % 11.0 H, Eosinophils % 3.2, Basophils % 0.1, Absolute Granulocytes 3.7, Absolute Lymphocytes 1.1 L, Absolute Monocytes 0.6, Absolute Eosinophils 0.2, Absolute Basophils 0 Microbiology 08/07 162 NASOPHARYN: Influenza Virus A & B Rapid Smear - COMP Diagnostic Imaging: Viewed by Me: Radiology Read. Discussed w/RAD: Radiology Read. Radiology Impression: PATIENT: SAVANAH FOSTER PRESENT AGE: 47 PATIENT ACCOUNT NO: [id number] : 68 LOCATION: [facility] ORDERING PHYSICIAN: Renzo TEE SERVICE DATE: 08/07/17161 EXAM TYPE: RAD - XRY-CHEST XRAY, TWO VIEWS EXAMINATION: CHEST 2 VIEWS CLINICAL INFORMATION: Cough. COMPARISON: 02/12/2017. TECHNIQUE: PA and lateral views of the chest were obtained. FINDINGS: The cardiac silhouette is not enlarged. The mediastinal and hilar contours are unremarkable. There are neither pleural effusions nor pneumothoraces. There are no consolidations. The osseous structures are stable. IMPRESSION: No evidence for acute disease. DICTATED BY: Dax Alexandre MD DATE/ TIME DICTATED:08/07/171715 GUNNER MATE:TALIA DATE/TIME TRANSCRIBED: 08/07/171715 CONFIDENTIAL, DO NOT COPY WITHOUT APPROPRIATE AUTHORIZATION. < Electronically signed in Other Vendor System> SIGNED BY: Dax Alexandre MD 08/07/171719 Initial ED EKG: normal sinus rhythm, rate (94) (Will TEE,Renzo) Departure Departure Disposition: HOME OR SELF CARE Condition: Stable Clinical Impression Primary Impression: Gastroenteritis Referrals: April MARTINES,Wesley Roy (PCP/Family) Additional Instructions: Take Bentyl/ Zofran as prescribed. Follow-up with your primary care doctor. Rest. Drink plenty fluids. Tylenol ibuprofen as needed for fevers. Please go over all results of today's visit with your primary care doctor. Contact your primary care doctor to let them know you were here in the emergency room. There may be nonspecific findings which may not be related to your visit today here in the emergency room but may require further evaluation and chronic monitoring by your primary care doctor. If you had a laceration today the chance of foreign body always remains. You should follow-up with your primary care doctor for recheck in 3-5 days for a wound check. If you had an x-ray done there is a chance that a fracture could have been missed on initial read and you should follow-up with your primary care doctor for repeat x-rays if symptoms persist. If your blood pressure was elevated here in the emergency room please have rechecked by bibiana primary care doctor within the next 48. If you were prescribed a narcotic here in the emergency room or any type of controlled substances you're not allowed to drive while taking this medication or operate any type of heavy machinery. Narcotics can make you feel lightheaded dizziness nausea and can cause constipation. You may need to pick and shovel worker a stool softener. Thank you for choosing [facility] emergency room. Please return to the emergency room immediately if you have any other concerns worsening of symptoms. Departure Forms: Customer Survey General Discharge Information Prescriptions: Current Visit Scripts Dicyclomine HCl 1 CAP PO TID #30 CAP Ondansetron (Zofran Odt) 1 TAB SL TID #10 TAB Comments 08/07/2017 5:59:58 PM Symptoms are most consistent with a viral illness. Patient feels mildly better. Follow-up with PCP. Return if any other concerns worsening symptoms. pt clinically looks well. Patient is in no apparent distress. She feels better after medications here in emergency room. (Renzo Amador) PA/ASSISTANT [employer] PROFESSION[employer] Co-Sign Statement Statement: ED Attending supervision documentation- I saw and evaluated the patient. I have also reviewed all the pertinent lab results and diagnostic results. I agree with the findings and the plan of care as documented in the PA's/ASSISTANT [employer]OLF PROFESSIONAL's documentation. x I have reviewed the ED Record and agree with the PA's/ASSISTANT [employer]OL[employer] PROFESSIONAL's documentation. [] Additions or exceptions (if any) to the PAs/ASSISTANT GOLF PROFESSIONAL's note and plan are summarized below: [] (Kash MARTINES,Alhaji)
--- NOTE | 2017-08-07 17:20 | RADIOLOGY REPORT ---
EXAMINATION: CHEST 2 VIEWS CLINICAL INFORMATION: Cough. COMPARISON: 02/12/2017. TECHNIQUE: PA and lateral views of the chest were obtained. FINDINGS: The cardiac silhouette is not enlarged. The mediastinal and hilar contours are unremarkable. There are neither pleural effusions nor pneumothoraces. There are no consolidations. The osseous structures are stable. IMPRESSION: No evidence for acute disease.
[2017-08-07] MEDS ORDERED: ZOFRAN ODT4 M1 SL (17:55)
[2017-08-07] MEDS ORDERED: DICYCLOMINE HCL10 M1 PO (17:55)
[2017-08-07 18:30] VITALS: BP 145/84
== END 2017-08-07 18:37 ==
LOC: ERH 15:39
PROVIDERS: Physician Assistant Medical
DX: K52.9 Noninfective gastroenteritis and colitis, unspecified (principal)
CPT/HCPCS: 71046; 81003; 87804; 87804-59; 96374; 96375; J0131; J2405

== ENCOUNTER 2017-10-08 18:24 | Emergency (ER) | payer OTHER ==
[~2017-10-08 18:24] MED LIST changes: +DICYCLOMINE HCL10 M1 PO; +ZOFRAN ODT4 M1 SL
[2017-10-08 18:36] VITALS: BP 124/79
--- NOTE | 2017-10-08 18:58 | RADIOLOGY REPORT ---
EXAMINATION: XR CHEST CLINICAL INFORMATION: Shortness of breath. COMPARISON: Chest x-ray from 08/07/2017. TECHNIQUE: 2 views of the chest were obtained. FINDINGS: Increased lung markings bilaterally are nonspecific. No airspace opacity or pleural effusion is seen. The cardiomediastinal silhouette is normal. No acute osseous abnormality is visible. IMPRESSION: Slightly increased lung markings bilaterally are nonspecific and may be due to reactive airways disease or possibly an atypical infectious process in the correct clinical setting. No airspace consolidation.
== END 2017-10-08 18:45 | disposition admitted as inpatient to this hospital (09) ==
LOC: ERH 18:24
DX: R06.02 Shortness of breath (principal)
CPT/HCPCS: 71046; 99281

== ENCOUNTER 2017-10-15 23:32 | Emergency (ER) | payer OTHER ==
[~2017-10-15] VITALS: Ht 162.6 cm; Wt 113.4 kg
--- NOTE | 2017-10-15 23:35 | ED GENERAL ADULT ---
History of Present Illness General Chief Complaint: Dyspnea (COPD, CHF, Other) Stated Complaint: DIARRHEA, COUGH, AND FEVER Source: patient Exam Limitations: no limitations Vital Signs & Intake/Output Vital Signs & Intake/Output Vital Signs Date Time Temp Pulse Resp B/P B/P Pulse O2 O2 Flow FiO2 Mean Ox Delivery Rate 10/16 0118 99.8 10/16 0015 101.2 105 18 116/56 93 Allergies Coded Allergies: amoxicillin (From Augmentin) (Intermediate, SICK - VOMITING 02/03/16) clavulanic acid (From Augmentin) (Intermediate, SICK - VOMITING 02/03/16) lithium (Intermediate, SICK - NAUSEA, DIARRHEA, VOMITING 02/03/16) Sulfa (Sulfonamide Antibiotics) (BAD RASH ALL OVER BODY 02/03/16) erythromycin base (R/O ERYTHROMYCIN (PER DR. Thomas KULKARNI MD) 02/03/16) haloperidol (From Haldol) (PER PT GETS OUT OF IT, DOESNT MOVE 02/03/16) morphine (PER PT DIDNT LIKE THE WAY IT MADE HER FEEL 02/03/16) Reconcile Medications Acetaminophen (Acetaminophen 8 Hour) 650 MG TABLET.ER 2 TAB PO BID PRN PAIN ( Reported) Albuterol Sulfate (Proair Hfa) 90 MCG HFA.AER.AD 2 PUF INH Q6P PRN COPD ( Reported) Aripiprazole (Abilify) 10 MG TABLET 10 MG PO 2200 stabilie moods/clarify thought Aspirin (Ecotrin*) 325 MG TABLET. 1 TAB PO DAILY HEART/BLOOD (Reported) Benzonatate (Tessalon Perle) 100 MG CAPSULE 1 CAP PO TID PRN cough Bupropion HCl (Bupropion HCl Sr) 150 MG TABLET.ER 150 MG PO 0800 anti- depressant Carbamazepine 100 MG TAB.CHEW 3 TAB PO BID mood stabilizer Clonazepam (Klonopin) 0.5 MG TABLET 0.5 MG PO 0800,2200 panic anxiety take one tablet twice a day and one tablet as needed for panic anxiety (maximum of 3 tablets/day) Clozapine 50 MG TABLET 3 TAB PO AT BEDTIME to clear thoughts Cyanocobalamin (Vitamin B-12) 1,000 MCG TABLET 1 TAB PO DAILY SUPPLEMENT ( Reported) Dicyclomine HCl 10 MG CAPSULE 1 CAP PO TID abd pain Diphenoxylate HCl/Atropine (Lomotil 2.5-0.025 MG Tablet) 2.5 MG-0.025 MG TABLET 1-2 TAB PO 4 TIMES/DAY PRN diarrhea twenty...[id number] Escitalopram Oxalate (Lexapro) 10 MG TABLET 20 MG PO 1000 anti-depressant Fluticasone Propionate 50 MCG/ACTUATION SPRAY.SUSP 2 SPRAY KM DAILY PRN nasal congestion Fluticasone/Salmeterol (Advair 250-50 Diskus) 250 MCG-50 MCG/DOSE BLST.W.DEV 1 PUF INH BID BREATHING PROBLEMS (Reported) Furosemide (Lasix) 40 MG TABLET 1 TAB PO BID DIURETIC (Reported) Ibuprofen 800 MG TABLET 1 TAB PO TID PRN pain Levocetirizine Dihydrochloride (Xyzal) 5 MG TABLET 1 TAB PO DAILY ALLERGIES ( Reported) Montelukast Sodium 10 MG TABLET 1 TAB PO DAILY ALLERGIES/RESP. (Reported) Multivitamin (Multi-Vitamin Daily) 1 EACH TABLET 1 TAB PO DAILY SUPPLEMENT ( Reported) Nicotine (Nicorelief) 2 MG GUM 2 MG PO Q2P PRN nicotine craving Ondansetron (Zofran Odt) 4 MG TAB.RAPDIS 1 TAB SL TID nausea Pantoprazole Sodium (Protonix) 20 MG TABLET.DR 1 TAB PO BID GI (Reported) Rosuvastatin Calcium (Crestor) 10 MG TABLET 1 TAB PO DAILY HPL (Reported) Solifenacin Succinate (Vesicare) 5 MG TABLET 1 TAB PO DAILY BLADDER HEALTH ( Reported) Triamcinolone Acetonide 0.1 % CREAM..G. 1 CATRACHO TOP BID AFFECTED AREA(S) - SKIN (Reported) Triage Note: PT BIBA FROM HOME FOR FEVERS AND DIARRHEA. PT WAS RECENTLY DIAGNOSED WITH BRONCHITIS AND PALCED ON AUGMENTIN. PT HAS HAD DIARRHEA SINCE AND STARTED TO HAVE FEVERS TODAY. Triage Nurses Notes Reviewed? yes Onset: Gradual Duration: day(s):, waxing and waning Timing: recent history Injury Environment: home Severity: mild, moderate Modifying Factors: Improves With: rest. Associated Symptoms: diarrhea HPI: 47-year-old woman presents with diarrhea. She states that she had been on Augmentin for a week due to bronchitis. She states that she still has a mild cough that is not productive. She notes also that since starting the Augmentin she developed diarrhea. "I've had this happen in the past with Augmentin. It always gives him diarrhea." She notes feeling mild nausea without vomiting. She states that she does feel intermittently warm, as if she has a fever. She is otherwise well. Past History Medical History Any Pertinent Medical History? see below for history Neurological: NONE EENT: allergies Cardiovascular: edema (on Lasix) Respiratory: bronchitis, COPD Gastrointestinal: GERD, irritable bowel syndrome, reflux Hepatic: NONE Renal: NONE Musculoskeletal: chronic back pain, falls, sciatica Psychiatric: anxiety, bipolar disease, chronic pain disorder, depression, schizo affective disorder, substance abuse (alcohol/cocaine--in remission), PTSD Endocrine: obesity (gained 100+ lbs. 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 No Review of Systems Review of Systems Constitutional: Denies: see HPI. Physical Exam Physical Exam General Appearance: well developed/nourished, mild distress Comments: Review of Systems - except as otherwise noted in HPI Review of Systems Constitutional:no symptoms. EENTM:no symptoms. Respiratory:no symptoms. Cardiovascular:no symptoms. GI:no symptoms. Genitourinary:no symptoms. Musculoskeletal:no symptoms. Skin:no symptoms. Neurological/Psychological:no symptoms. Hematologic/Endocrine:no symptoms. Immunologic/Allergic:no symptoms. All Other Systems: Reviewed and Negative Physical Exam Physical Exam General Appearance: well developed/nourished, mild distress Head: atraumatic, normal appearance Eyes: Bilateral: normal appearance. Ears, Nose, Throat: normal pharynx, normal ENT inspection Neck: normal inspection, supple, full range of motion Respiratory: normal breath sounds, chest non-tender, no respiratory distress, quiet respiration, lungs clear Cardiovascular: regular rate/rhythm Gastrointestinal: normal bowel sounds, soft, non-tender, no organomegaly Back: normal inspection, normal range of motion Extremities: normal inspection, normal capillary refill, normal range of motion, no edema Neurologic/Psych: no motor/sensory deficits, awake, alert, oriented x 3 Skin: intact, normal color, warm/dry Core Measures ACS in differential dx? No CVA/TIA Diagnosis: No Sepsis Present: No Sepsis Focused Exam Completed? No Progress Differential Diagnoses I considered the following diagnoses in my evaluation of the patient: Viral syndrome versus colitis versus antibiotic failure versus pneumonia versus other Plan of Care: Orders Procedure Date/time Status TROPONIN LEVEL 10/16 2335 Complete LIPASE 10/16 2335 Complete HEPATIC FUNCTION PANEL 10/16 2335 Complete HUMAN BETA HCG SCREEN 10/16 2335 Complete CBC WITHOUT DIFFERENTIAL 10/16 2335 Complete BASIC METABOLIC PANEL 10/16 2335 Complete AMYLASE 10/16 2335 Complete EKG 10/16 2335 Active Current Medications Sig/Sandeep Start time Last Medication Dose Stop Time Status Admin Diphenoxylate HCl/ 5 MG ONCE ONE 10/16 199 UNVr Atropine 10/16 200 (Lomotil) Guaifenesin/ 10 ML ONCE ONE 10/16 199 UNVr Dextromethorphan 10/16 200 (Robitussin Dm) Laboratory Tests 10/16/17 0005: Anion Gap 13, Estimated GFR > 60, BUN/Creatinine Ratio 10.0, Glucose 126 H, Calcium 9.2, Total Bilirubin 0.5, Direct Bilirubin 0.3, AST 70 H, ALT 78 H, Alkaline Phosphatase 133 H, Troponin I < 0.01, Total Protein 7.0, Albumin 4.1, Amylase 43, Lipase 63, Total Beta HCG NEGATIVE, CBC w Diff NO MAN DIFF REQ, RBC 4.26, MCV 90.7, MCH 31.6 H, MCHC 34.8, RDW 13.3, MPV 8.2, Gran % 91.8 H, Lymphocytes % 3.3 L, Monocytes % 3.8, Eosinophils % 0.9, Basophils % 0.2, Absolute Granulocytes 13.0 H, Absolute Lymphocytes 0.5 L, Absolute Monocytes 0.5, Absolute Eosinophils 0.1, Absolute Basophils 0 Diagnostic Imaging: Viewed by Me: Radiology Read, CT Scan. Discussed w/RAD: Radiology Read, CT Scan. Radiology Impression: PATIENT: SAVANAH FOSTER PRESENT AGE: 47 PATIENT ACCOUNT NO: [id number] : 68 LOCATION: [facility] ORDERING PHYSICIAN: Lopez Davidson MD SERVICE DATE: 10/15/17-2336 EXAM TYPE: RAD - XRY-PORTABLE CHEST XRAY EXAMINATION: XR PORTABLE CHEST CLINICAL INFORMATION: Dyspnea COMPARISON: 10/08/2017 TECHNIQUE: Portable frontal view of the chest was obtained. FINDINGS: The lungs are clear with no focal consolidation. No evidence of pneumothorax, overt pulmonary edema, or pleural effusions. The cardiomediastinal silhouette is unremarkable. No acute osseous findings. IMPRESSION: No acute cardiopulmonary findings. DICTATED BY: Ramakrishna Ocampo MD DATE/TIME DICTATED:10/16/17129 SPICE FUMIGATOR:TALIA DATE/TIME TRANSCRIBED:10/16/17129 CONFIDENTIAL, DO NOT COPY WITHOUT APPROPRIATE AUTHORIZATION. <Electronically signed in Other Vendor System> SIGNED BY: Ramakrishna Ocampo MD 10/16/17133, PATIENT: SAVANAH FOSTER PRESENT AGE: 47 PATIENT ACCOUNT NO: [id number] : 66 LOCATION: [facility] ORDERING PHYSICIAN: Lopez Davidson MD SERVICE DATE: 10/15/17 EXAM TYPE: CAT - CT ABD & PELVIS W/O IV CONTRAS EXAMINATION: CT ABDOMEN AND PELVIS WITHOUT CONTRAST CLINICAL INFORMATION: Abdominal pain, diarrhea COMPARISON: 02/29/2016 TECHNIQUE: Multidetector volumetric imaging was performed from the superior aspect of the liver through the pubic symphysis. Sagittal and coronal reformatted images were obtained on the technologist's workstation. DLP: 1507.53 mGy-cm FINDINGS: LUNG BASES: The visualized lung bases are unremarkable. LIVER, GALLBLADDER, AND BILIARY TREE: The liver is normal in size, shape, and attenuation. No focal hepatic lesion or biliary ductal dilatation is present. The gallbladder appears partially contracted. PANCREAS: Unremarkable. SPLEEN: Unremarkable. ADRENAL GLANDS: Unremarkable. KIDNEYS AND URETERS: The kidneys are normal in size, shape, and attenuation. No hydronephrosis, hydroureter, or calculi seen. BLADDER: Unremarkable. GASTROINTESTINAL TRACT: The small and large bowel are unremarkable. The appendix is unremarkable. No free fluid or free air is seen. ABDOMINAL WALL: No significant hernia is appreciated. LYMPH NODES: Normal. VASCULAR: Scattered atherosclerotic calcifications are present. PELVIC VISCERA: Unremarkable. OSSEOUS STRUCTURES: Patient is status post L4-L5 fusion. IMPRESSION: No acute findings identified in the abdomen/pelvis. DICTATED BY: Ramakrishna Ocampo MD DATE/TIME DICTATED:10/16/17130 SPICE FUMIGATOR:TALIA DATE/TIME TRANSCRIBED:10/16/17130 CONFIDENTIAL, DO NOT COPY WITHOUT APPROPRIATE AUTHORIZATION. <Electronically signed in Other Vendor System> SIGNED BY: Ramakrishna Ocampo MD 10/16/17 014 Initial ED EKG: nsr, no acute changes Departure Departure Disposition: HOME OR SELF CARE Condition: Stable Clinical Impression Primary Impression: Diarrhea Secondary Impressions: Bronchitis Referrals: April MARTINES,W[facility] (PCP/Family) Departure Forms: Customer Survey General Discharge Information Prescriptions: Current Visit Scripts Benzonatate (Tessalon Perle) 1 CAP PO TID PRN cough #30 CAP Ibuprofen 1 TAB PO TID PRN pain #30 TAB Diphenoxylate HCl/Atropine (Lomotil 2.5-0.025 MG Tablet) 1-2 TAB PO 4 TIMES/DAY PRN diarrhea #20 TAB twenty...[id number] Comments 10/16/17, 1:56am... pt feeling better after iv fluids... ct scan of abd/pelvis benign... i doubt c.diff colitis with normal wbc count, normal ct scan. cxr neg... i doubt abx failure for a bacterial bronchitis... fever most likely due to viral syndrome.... pt stable to go home, and will return if symptoms worsen. Critical Care Note Critical Care Note Critical Care Time: non-applicable
[2017-10-16 00:32] LABS: ABSOLUTE BASOPHIL COUNT 0 /CUMM (0.0-0.2); ABSOLUTE EOSINOPHIL COUNT 0.1 /CUMM (0.0-0.7); ABSOLUTE LYMPH COUNT 0.5 /CUMM (1.2-3.4); ABSOLUTE MONOCYTE COUNT 0.5 /CUMM (0.10-0.60); BASOPHIL % 0.2 % (0.0-2.0); EOSINOPHIL % 0.9 % (0-5); HEMATOCRIT 38.6 % (37-47); MEAN CORPUSCULAR HGB 31.6 PG (27.0-31.0); MEAN CORPUSCULAR HGB CONC 34.8 G/DL (33.0-37.0); MEAN CORPUSCULAR VOLUME 90.7 FL (81.0-99.0); MEAN PLATELET VOLUME 8.2 FL (7.4-10.4); PLATELET COUNT 267 /CUMM (130-400); RBC DISTRIBUTION WIDTH 13.3 % (11.5-14.5); RED BLOOD CELL CT 4.26 /CUMM (4.20-5.40); WHITE BLOOD CELL COUNT 14.1 /CUMM (4.8-10.8)
[2017-10-16 01:13] LABS: GRANULOCYTE % 91.8 % (42.2-75.2)
--- NOTE | 2017-10-16 01:34 | RADIOLOGY REPORT ---
EXAMINATION: XR PORTABLE CHEST CLINICAL INFORMATION: Dyspnea COMPARISON: 10/08/2017 TECHNIQUE: Portable frontal view of the chest was obtained. FINDINGS: The lungs are clear with no focal consolidation. No evidence of pneumothorax, overt pulmonary edema, or pleural effusions. The cardiomediastinal silhouette is unremarkable. No acute osseous findings. IMPRESSION: No acute cardiopulmonary findings.
--- NOTE | 2017-10-16 01:41 | CT SCAN REPORT ---
EXAMINATION: CT ABDOMEN AND PELVIS WITHOUT CONTRAST CLINICAL INFORMATION: Abdominal pain, diarrhea COMPARISON: 02/29/2016 TECHNIQUE: Multidetector volumetric imaging was performed from the superior aspect of the liver through the pubic symphysis. Sagittal and coronal reformatted images were obtained on the technologist's workstation. DLP: 1507.53 mGy-cm FINDINGS: LUNG BASES: The visualized lung bases are unremarkable. LIVER, GALLBLADDER, AND BILIARY TREE: The liver is normal in size, shape, and attenuation. No focal hepatic lesion or biliary ductal dilatation is present. The gallbladder appears partially contracted. PANCREAS: Unremarkable. SPLEEN: Unremarkable. ADRENAL GLANDS: Unremarkable. KIDNEYS AND URETERS: The kidneys are normal in size, shape, and attenuation. No hydronephrosis, hydroureter, or calculi seen. BLADDER: Unremarkable. GASTROINTESTINAL TRACT: The small and large bowel are unremarkable. The appendix is unremarkable. No free fluid or free air is seen. ABDOMINAL WALL: No significant hernia is appreciated. LYMPH NODES: Normal. VASCULAR: Scattered atherosclerotic calcifications are present. PELVIC VISCERA: Unremarkable. OSSEOUS STRUCTURES: Patient is status post L4-L5 fusion. IMPRESSION: No acute findings identified in the abdomen/pelvis.
[2017-10-16] MEDS ORDERED: LOMOTIL 2.5-0.1 EACH PO (01:55)
[2017-10-16] MEDS ORDERED: TESSALON PERLE100 M1 PO (01:55)
[2017-10-16] MEDS ORDERED: IBUPROFEN800 M1 PO (01:55)
[2017-10-16 03:09] VITALS: BP 113/67
== END 2017-10-16 03:08 ==
LOC: ERH 23:32
PROVIDERS: Pediatrics
DX: R19.7 Diarrhea, unspecified (principal); J40 Bronchitis, not specified as acute or chronic; R05 Cough; R50.9 Fever, unspecified
CPT/HCPCS: 71045; 74176; 93005; 93010; 96361; 96374; 96375; J0131; J1885; J2405